=== PATIENT | female | born 1935 | race Caucasian/White ===

== ENCOUNTER → 2016-12-14 | Outpatient (CLI) | payer OTHER ==
[~2016-12-14] MED LIST: AMOX500C3 PO; ATEN50TA8 PO; GUAISYP4 PO; LATA0.009 OPB; LISI5TAB3 PO; PRED5PAK3 PO; RIVA1.5T PO; SIMV10TA2 PO
--- NOTE | 2016-12-14 14:51 | MAMMOGRAPHY REPORT ---
BILATERAL DIGITAL SCREENING MAMMOGRAM WITH CAD: 12/14/2016 CLINICAL HISTORY: Routine screening. Patient has no complaints. TECHNIQUE: Current study was also evaluated with a Computer Aided Detection (CAD) system. Bilatera l CC and MLO views were obtained. COMPARISON: Comparison is made to exam dated: 03/31/2014 mammogram - [facility]. BREAST COMPOSITION: The tissue of both breasts is almost entirely fatty. FINDINGS: No suspicious masses, calcifications, or areas of architectural distortion are noted in e ither breast. There has been no significant interval change compared to prior exams. Scattered bilat eral benign-appearing calcifications are not significantly changed. IMPRESSION: ACR BI-RADS CATEGORY 2: BENIGN There is no mammographic evidence of malignancy. A 1 year screening mammogram is recommended. The p atient will receive written notification of the results. Approximately 10% of breast cancers are not detected with mammography. A negative mammographic repor t should not delay biopsy if a clinically suggestive mass is present. Sridevi Damon M.D. ah/:12/14/2016 12:43:42 Nitrator Operator: Valentina MCKEON(Stoney)(Vern), [facility] letter sent: Normal 1/2 BI-RADS Code: ACR BI-RADS Category 2: Benign
== END | disposition home or self-care (01) ==
LOC: C.MAMM 10:14
PROVIDERS: ATTEND Internal Medicine
DX: Z12.31 Encounter for screening mammogram for malignant neoplasm of breast (principal)

== ENCOUNTER → 2017-01-03 | Outpatient (CLI) | payer OTHER ==
--- NOTE | 2017-01-03 10:15 | DIAGNOSTIC IMAGING REPORT ---
TWO VIEW CHEST CLINICAL HISTORY: Bronchitis. FINDINGS: PA and lateral chest radiographs are compared to study dated 02/28/2015. The PA view is degraded by patient rotation. The heart is enlarged and there is atherosclerotic calcification of the thoracic aorta. The pulmonary vasculature is noncongested. Chronic interstitial thickening is unchanged. Linear atelectasis versus scarring left lower lung is similar to previous. No airspace consolidation or pleural effusion is identified. There is no pneumothorax. The skeletal structures are osteopenic. Degenerative change and moderate scoliosis are noted in the spine. Cholecystectomy clips are noted in the right upper quadrant. IMPRESSION: Cardiomegaly and chronic parenchymal changes as above. There is no acute cardiopulmonary abnormality. Electronically signed by: Gerardo Byrd M.D. 01/03/2017 10:13 AM Dictated Date/Time: 01/03/2017 10:12 AM
== END | disposition home or self-care (01) ==
LOC: C.RAD 09:33
PROVIDERS: ATTEND Internal Medicine
DX: J20.9 Acute bronchitis, unspecified (principal); I51.7 Cardiomegaly

== ENCOUNTER → 2017-05-02 | Outpatient (CLI) | payer OTHER ==
[2017-05-02 13:58] LABS: BASO % 0.4 %; BASO ABS # 0.04 K/uL (0-0.2); COMPLETE YES; EOS % 3.1 %; HEMATOCRIT 47.6 % (37-47); IG% 0.1 %; LYMPH % 44.8 %; LYMPH ABS # 4.06 K/uL (1.2-3.4); MEAN CELL VOLUME 91.9 fL (80-100); MEAN CORPUSCULAR HGB CONC 31.5 g/dl (32-36); MEAN PLATELET VOLUME 11.5 fL (7.4-10.4); MONO % 7.4 %; NEUT % 44.2 %; PLATELET COUNT 220 K/uL (130-400); RED BLOOD COUNT 5.18 M/uL (4.2-5.4); WHITE BLOOD COUNT 9.07 K/uL (4.8-10.8)
[2017-05-02 14:33] LABS: ESTIMATED AVERAGE GLUCOSE 126 mg/dl; HA1C FLAG Normal (Normal)
[2017-05-02 15:40] LABS: ALB/GLOB RATIO 0.9 (0.9-2); ALKALINE PHOSPHATASE 72 U/L (45-117); ALT/SGPT 19 U/L (12-78); AST/SGOT 13 U/L (15-37); BLOOD UREA NITROGEN 9 mg/dl (7-18); BUN/CREATININE RATIO 12.6 (10-20); CALCIUM 8.5 mg/dl (8.5-10.1); CARBON DIOXIDE 32 mmol/L (21-32); CHLORIDE 103 mmol/L (98-107); CREATININE 0.69 mg/dl (0.60-1.20); GLUCOSE 96 mg/dl (70-99); HDL CHOLESTEROL 57 mg/dl; POTASSIUM 3.9 mmol/L (3.5-5.1); SODIUM 142 mmol/L (136-145)
[2017-05-02 15:41] LABS: CHOLESTEROL 156 mg/dl (0-200); CHOLESTEROL/HDL RATIO 2.7; TRIGLYCERIDES 92 mg/dl (0-150); VERY LOW DENSITY LIPOPROT CALC 18 mg/dl
== END | disposition home or self-care (01) ==
LOC: C.LABSPEC 12:46
PROVIDERS: ATTEND Internal Medicine
DX: R73.9 Hyperglycemia, unspecified (principal); E78.5 Hyperlipidemia, unspecified; I10 Essential (primary) hypertension; I48.91 Unspecified atrial fibrillation

== ENCOUNTER → 2017-11-01 | Outpatient (CLI) | payer OTHER ==
[2017-11-01 13:28] LABS: BASO % 0.5 %; BASO ABS # 0.04 K/uL (0-0.2); COMPLETE YES; EOS % 2.6 %; HEMATOCRIT 44.7 % (37-47); IG% 0.4 %; LYMPH % 41.3 %; LYMPH ABS # 3.48 K/uL (1.2-3.4); MEAN CELL VOLUME 89.6 fL (80-100); MEAN CORPUSCULAR HEMOGLOBIN 30.9 pg (25-34); MEAN CORPUSCULAR HGB CONC 34.5 g/dl (32-36); MEAN PLATELET VOLUME 11.7 fL (7.4-10.4); MONO % 7.8 %; NEUT % 47.4 %; PLATELET COUNT 220 K/uL (130-400); RED BLOOD COUNT 4.99 M/uL (4.2-5.4); WHITE BLOOD COUNT 8.42 K/uL (4.8-10.8)
[2017-11-01 13:55] LABS: ALT/SGPT 22 U/L (12-78); BLOOD UREA NITROGEN 6 mg/dl (7-18); BUN/CREATININE RATIO 10.8 (10-20); CALCIUM 8.8 mg/dl (8.5-10.1); CARBON DIOXIDE 27 mmol/L (21-32); CHLORIDE 99 mmol/L (98-107); GLUCOSE 103 mg/dl (70-99); MAGNESIUM 2.2 mg/dl (1.8-2.4); POTASSIUM 3.7 mmol/L (3.5-5.1); SODIUM 134 mmol/L (136-145)
[2017-11-01 14:00] LABS: ALB/GLOB RATIO 0.9 (0.9-2); ALKALINE PHOSPHATASE 73 U/L (45-117); AST/SGOT 17 U/L (15-37); CHOLESTEROL 184 mg/dl (0-200); CHOLESTEROL/HDL RATIO 3.3; HDL CHOLESTEROL 55 mg/dl; TRIGLYCERIDES 110 mg/dl (0-150); VERY LOW DENSITY LIPOPROT CALC 22 mg/dl
== END | disposition home or self-care (01) ==
LOC: C.LABSPEC 12:36
PROVIDERS: ATTEND Internal Medicine
DX: I48.91 Unspecified atrial fibrillation (principal); I10 Essential (primary) hypertension; E78.5 Hyperlipidemia, unspecified

== ENCOUNTER → 2017-11-01 | Outpatient (CLI) | payer OTHER | END | disposition home or self-care (01) | LOC: C.PAPS 12:51 | PROVIDERS: ATTEND Internal Medicine | DX: Z12.4 Encounter for screening for malignant neoplasm of cervix (principal); R87.612 Low grade squamous intraepithelial lesion on cytologic smear of cervix (LGSIL); Z78.0 Asymptomatic menopausal state ==

== ENCOUNTER → 2017-11-06 | Outpatient (CLI) | payer OTHER ==
[~2017-11-06] MED LIST changes: +APIX1TAB3 PO; +AZIT250T PO; +LATA0.5S OPB; +LISI-461 PO; +TRIATAB3 PO; +XLTOPS OPB
[2017-11-13 15:35] LABS: FECAL OCCULT BLOOD #1 NEGATIVE (NEGATIVE); FECAL OCCULT BLOOD #2 NEGATIVE (NEGATIVE); FECAL OCCULT BLOOD #3 NEGATIVE (NEGATIVE)
== END | disposition home or self-care (01) ==
LOC: C.LABSPEC 14:50
PROVIDERS: ATTEND Internal Medicine
DX: Z12.11 Encounter for screening for malignant neoplasm of colon (principal)

== ENCOUNTER → 2017-12-11 | Outpatient (CLI) | payer OTHER ==
[~2017-12-11] MED LIST changes: -APIX1TAB3 PO; -AZIT250T PO; -LATA0.5S OPB; -LISI-461 PO; -TRIATAB3 PO; -XLTOPS OPB
== END | disposition home or self-care (01) ==
LOC: C.PAPS 10:49
PROVIDERS: ATTEND Internal Medicine
DX: Z01.411 Encounter for gynecological examination (general) (routine) with abnormal findings (principal); R87.612 Low grade squamous intraepithelial lesion on cytologic smear of cervix (LGSIL)

== ENCOUNTER → 2017-12-17 | Outpatient (CLI) | payer OTHER ==
--- NOTE | 2017-12-17 15:52 | MAMMOGRAPHY REPORT ---
BILATERAL DIGITAL SCREENING MAMMOGRAM TOMOSYNTHESIS WITH CAD: 12/17/2017 CLINICAL HISTORY: Routine screening. Patient has no complaints. TECHNIQUE: Breast tomosynthesis in addition to standard 2D mammography was performed. Current study was also evaluated with a Computer Aided Detection (CAD) system. COMPARISON: Comparison is made to exams dated: 12/14/2016 mammogram and 03/31/2014 mammogram - [facility]. BREAST COMPOSITION: The tissue of both breasts is almost entirely fatty. FINDINGS: No suspicious masses, calcifications, or areas of architectural distortion are noted in ei ther breast. There has been no significant interval change compared to prior exams. Scattered bilater al benign-appearing calcifications are not significantly changed. IMPRESSION: ACR BI-RADS CATEGORY 2: BENIGN There is no mammographic evidence of malignancy. A 1 year screening mammogram is recommended. The pa tient will receive written notification of the results. Approximately 10% of breast cancers are not detected with mammography. A negative mammographic report should not delay biopsy if a clinically suggestive mass is present. Sridevi Damon M.D. /:12/17/2017 13:30:17 Therapeutic Activities Services Worker: Silvana Amaya, [facility] letter sent: Normal 1/2 BI-RADS Code: ACR BI-RADS Category 2: Benign
== END | disposition home or self-care (01) ==
LOC: C.MAMM 12:36
PROVIDERS: ATTEND Internal Medicine
DX: Z12.31 Encounter for screening mammogram for malignant neoplasm of breast (principal)

== ENCOUNTER → 2018-01-01 | Outpatient (CLI) | payer OTHER | END | disposition home or self-care (01) | LOC: C.LABSPEC 16:03 | PROVIDERS: ATTEND Obstetrics & Gynecology | DX: R87.612 Low grade squamous intraepithelial lesion on cytologic smear of cervix (LGSIL) (principal) ==

== ENCOUNTER → 2018-01-01 | Outpatient (CLI) | payer OTHER | END | disposition home or self-care (01) | LOC: C.PATHSPEC 13:15 | PROVIDERS: ATTEND Obstetrics & Gynecology | DX: R87.612 Low grade squamous intraepithelial lesion on cytologic smear of cervix (LGSIL) (principal) ==

== ENCOUNTER 2018-03-08 07:41 | Emergency (ER) | payer OTHER ==
[~2018-03-08] VITALS: Ht 154.9 cm; Wt 87.1 kg
[2018-03-08 07:49] VITALS: TEMP 36.8
[2018-03-08] MEDS ORDERED: ACETAMINOPHEN 500 MG TAB PO STA (08:02)
[2018-03-08] MEDS ORDERED: COUGH DROP (SUGAR FREE) LOZ 24 LOZ/1 BOX LOZ STA (08:02)
[2018-03-08] MEDS ORDERED: ALBUT/IPRATROP 3MG/0.5MG NEB 3 ML VIAL INH STA (08:02)
[2018-03-08] MEDS ORDERED: APIX1TAB3 PO (08:05)
[2018-03-08] MEDS ORDERED: XLTOPS OPB (08:05)
[2018-03-08] MEDS ORDERED: TRIATAB3 PO (08:05)
[2018-03-08] MEDS ORDERED: LISI-461 PO (08:05)
[2018-03-08 08:08] VITALS: O2SAT 97
--- NOTE | 2018-03-08 08:08 | EMERGENCY ROOM VISIT NOTE ---
History Report prepared by Willa: Luis Armando Spangler Under the Supervision of: Dr. Luis Enrique Puga M.D. First contact with patient: 07:51 Chief Complaint: RESPIRATORY PROBLEMS Stated Complaint: UPPER RESPIRATORY INFECTION/TROUBLE BREATHING Nursing Triage Summary: patient states she has had a cough with chest congestion for a couple weeks. patient c/o increased congestion and intermittent SOB with excertion. denies chest pain. History of Present Illness The patient is an 83 year old white female with a past medical history of A-fib , anxiety, appendectomy, asthma, cholecystectomy, diverticulosis colon, glaucoma , hypertension, hypercholesterolemia who presents to the Emergency Room with complaints of worsening shortness of breath that she has been experiencing for the "past couple of days." The patient states that she has been congested and coughing as well. Her cough is producing "a lot of yellow mucous." The patient called her PCP on Sunday and was placed on Augmentin and has been taking this medication for the past 2 days. The patient's daughter notes that she gets bronchitis and pneumonia easily. She is on ELIQUIS for atrial fibrillation. Source of History: patient Onset: past couple of days Position: chest Quality: other (SOB) Timing: worsening Associated Symptoms: + cough Review of Systems See HPI for pertinent positives and negatives. A total of ten systems were reviewed and were otherwise negative. Past Medical & Surgical Medical Problems: (1) A-fib (2) Anxiety State Nos (3) Appendectomy (4) Asthma (5) Cholecystectomy (6) Diverticulosis Colon (W/O Ment Of Hemorrhage) (7) Glaucoma Nos (8) Hypertension Nos (9) Pure Hypercholesterolem Family History Omitted secondary to age. Social History Smoking Status: Never Smoker Marital Status: Occupation Status: retired Current/Historical Medications Scheduled Amoxicillin (Amoxil), 500 MG PO TID Apixaban (Eliquis), 5 MG PO BID Azithromycin (Zithromax), 250 MG PO DAILY Latanoprost (Latanoprost), 1 DROP OPB HS Lisinopril (Lisinopril), 10 MG PO BID Simvastatin (Zocor), 10 MG PO QPM Triamterene/Hctz (Triamterene/Hctz 37.5-25MG), 1 TAB PO DAILY Allergies Coded Allergies: Phenazopyridine (Verified Adverse Reaction, Unknown, HEADACHE, VISUAL PROBLEMS, 03/08/18) Physical Exam Vital Signs Date Time Temp Pulse Resp B/P (MAP) Pulse Ox O2 Delivery O2 Flow Rate FiO2 03/08/18 10:11 76 18 98 03/08/18 10:04 161/88 03/08/18 09:59 83 18 125/77 94 Room Air 03/08/18 09:41 84 18 96 03/08/18 09:31 125/77 03/08/18 09:11 83 15 94 03/08/18 09:01 137/64 03/08/18 08:31 76 20 140/83 99 Room Air 03/08/18 08:31 140/83 03/08/18 08:11 76 19 93 03/08/18 08:08 97 Room Air 03/08/18 08:04 69 03/08/18 07:49 36.8 97 18 182/95 99 Room Air Physical Exam GENERAL: Awake, alert, well-appearing, NAD HENT: Normocephalic, atraumatic. EYES: Normal conjunctiva. Sclera non-icteric. NECK: Supple. No nuchal rigidity. FROM. RESPIRATORY: Trace expiratory wheezing, no rhonchi or crackles CARDIAC: RRR, no MRG ABDOMEN: Soft, NTND, BS+ MSK: No chest wall TTP, no LE edema NEURO: GCS 15, CN 2-12 intact, moves all 4s on command SKIN: No rash or jaundice noted. Medical Decision & Procedures ER Provider Diagnostic Interpretation: Radiology results as stated below per my review and radiologist interpretation: CHEST ONE VIEW PORTABLE CLINICAL HISTORY: 83 years-old Female presenting with EVALUATE RESPIRATORY DISTRESS.DYSPNEA. TECHNIQUE: Portable upright AP view of the chest was obtained. COMPARISON: 01/03/2017. FINDINGS: Atherosclerosis of aortic arch. Cardiac silhouette enlarged. Mild prominence of pulmonary vasculature and upper lobes. Persistent bandlike opacity in the left midlung. No focal opacity. No large effusion or pneumothorax. Scoliotic curvature of the spine. Upper abdomen normal. IMPRESSION: 1. Cardiomegaly with findings suggestive of volume overload. No filemon pulmonary edema. 2. Chronic left midlung atelectasis or scarring. Electronically signed by: Edvin Becker M.D. 03/08/2018 8:19 AM Dictated Date/Time: 03/08/2018 8:18 AM Laboratory Results 03/08/18 08:07 Red Blood Count 4.84, Mean Corpuscular Volume 87.4, Mean Corpuscular Hemoglobin 31.2, Mean Corpuscular Hemoglobin Concent 35.7, Mean Platelet Volume 10.7, Neutrophils (%) (Auto) 68.7, Lymphocytes (%) (Auto) 22.3, Monocytes (%) (Auto) 6.5, Eosinophils (%) (Auto) 2.1, Basophils (%) (Auto) 0.2, Neutrophils # (Auto) 6.08, Lymphocytes # (Auto) 1.98, Monocytes # (Auto) 0.58, Eosinophils # (Auto) 0.19, Basophils # (Auto) 0.02 03/08/18 08:07 Test 03/08/18 08:07 03/08/18 10:15 White Blood Count 8.87 K/uL (4.8-10.8) Red Blood Count 4.84 M/uL (4.2-5.4) Hemoglobin 15.1 g/dL (12.0-16.0) Hematocrit 42.3 % (37-47) Mean Corpuscular Volume 87.4 fL (80-100) Mean Corpuscular Hemoglobin 31.2 pg (25-34) Mean Corpuscular Hemoglobin Concent 35.7 g/dl (32-36) Platelet Count 210 K/uL (130-400) Mean Platelet Volume 10.7 fL (7.4-10.4) Neutrophils (%) (Auto) 68.7 % Lymphocytes (%) (Auto) 22.3 % Monocytes (%) (Auto) 6.5 % Eosinophils (%) (Auto) 2.1 % Basophils (%) (Auto) 0.2 % Neutrophils # (Auto) 6.08 K/uL (1.4-6.5) Lymphocytes # (Auto) 1.98 K/uL (1.2-3.4) Monocytes # (Auto) 0.58 K/uL (0.11-0.59) Eosinophils # (Auto) 0.19 K/uL (0-0.5) Basophils # (Auto) 0.02 K/uL (0-0.2) RDW Standard Deviation 40.8 fL (36.4-46.3) RDW Coefficient of Variation 12.7 % (11.5-14.5) Immature Granulocyte % (Auto) 0.2 % Immature Granulocyte # (Auto) 0.02 K/uL (0.00-0.02) Anion Gap 8.0 mmol/L (3-11) Est Creatinine Clear Calc Drug Dose 65.6 ml/min Estimated GFR () 95.0 Estimated GFR (Non- 81.9 BUN/Creatinine Ratio 8.5 (10-20) Calcium Level 8.3 mg/dl (8.5-10.1) Troponin I < 0.015 ng/ml (0-0.045) Pro-B-Type Natriuretic Peptide 479 pg/ml (0-1800) Laboratory results reviewed by me Medications Administered Medications (Trade) Dose Ordered Sig/Bucky Route Start Time Stop Time Status Last Admin Dose Admin Acetaminophen (Tylenol Tab) 1,000 mg NOW STAT PO 03/08/18 08:02 03/08/18 08:05 DC 03/08/18 08:29 1,000 MG Albuterol/ Ipratropium (Duoneb) 3 ml NOW STAT INH 03/08/18 08:02 03/08/18 08:05 DC 03/08/18 08:28 3 ML Menthol (Nice Mendel) 1 mendel NOW STAT MENDEL 03/08/18 08:02 03/08/18 08:05 DC 03/08/18 08:29 24 MENDEL Azithromycin (Zithromax Tab) 500 mg NOW ONCE PO 03/08/18 09:30 03/08/18 09:31 DC 03/08/18 09:56 500 MG Sodium Chloride 500 ml @ 999 mls/hr Q31M STAT IV 03/08/18 09:35 03/08/18 10:05 DC 03/08/18 09:57 999 MLS/HR ECG Per My Interpretation Indication: SOB/dyspnea Rate (beats per minute): 68 Rhythm: atrial fibrillation Findings: Q waves (Anterior), other (Normal interval, normal axis) Comparison ECG Date: 02/25/2018 Change: no significant change ED Course 0757: The patient was evaluated in room B6. A complete history and physical exam was performed. 0931: I checked on the patient at this time. She is feeling a little weak. 1109: I reevaluated the patient. Discussed results and discharge instructions: She verbalized understanding and agreement. The patient is ready for discharge. Medical Decision The patient is an 83 year old white female with a past medical history of A-fib , anxiety state, appendectomy, asthma, cholecystectomy, diverticulosis colon, glaucoma Nos, hypertension, hypercholesterolemia who presents to the Emergency Room with complaints of worsening shortness of breath that she has been experiencing for the "past couple of days." Nursing notes reviewed. Ancillary studies and prior records reviewed. Differential diagnosis: Etiologies such as infections, reactive airway disease, pneumonia, pneumothorax , COPD, CHF, cardiac ischemia, pulmonary embolism, musculoskeletal, gastrointestinal, as well as others were entertained. Patient was seen and evaluated the bedside. Patient reportedly has an issue with some chronic bronchitis. Patient had had some noticed chest congestion and does complain of a purulent productive cough with yellow sputum. Patient does have subjective fevers but no documented temperature at home. On exam the patient does have some trace expiratory wheezes. Patient was recently placed on amoxicillin beginning Sunday. Patient's vital signs stable and patient is afebrile. Patient did have blood work completed, EKG, troponin, BNP, chest x-ray. Patient was also given a DuoNeb, Tylenol, and Cepacol. Upon reassessment the patient was feeling mildly improved. Patient's end expiratory wheezing is not clear. Patient stated that she did feel weak. Patient chest x-rays without acute focal consolidation. EKG is unremarkable. Patient did have some hyponatremia. Patient does not appear to be volume overloaded. Less likely CHF , renal failure, or liver dysfunction. Patient has had a prior history of thyroid disease. Patient is not any antipsychotics. This may be related to possible legionella was tract. Patient was given azithromycin and IVF. Medication Reconcilliation Current Medication List: was personally reviewed by me Blood Pressure Screening Patient's blood pressure: Elevated blood pressure Blood pressure disposition: Elevated BP felt to be situational Impression Primary Impression: Acute bronchitis Additional Impressions: Hyponatremia Cough Scribe Attestation The scribe's documentation has been prepared under my direction and personally reviewed by me in its entirety. I confirm that the note above accurately reflects all work, treatment, procedures, and medical decision making performed by me. Departure Information Dispostion Home / Self-Care Prescriptions Azithromycin (Zithromax) 250 Mg Tab 250 MG PO DAILY for 4 Days, #4 TAB Prov: Luis Enrique Puga M.D. 03/08/18 Referrals Yovanny Augustin M.D. (PCP) Patient Instructions Bronchitis Acute, My [facility] Additional Instructions Please return to the emergency department if you have worsening or recurrent symptoms not amenable to at-home treatment. Please call for a follow-up appointment with her primary care physician. Please take your medications as prescribed. If you have other concerns and/or complaints please feel free to also call your primary care physician's office or return the ED for further evaluation, management, and treatment. You may take 400 mg Ibuprofen every 6 hours as needed for pain/fever with food unless told by your physician not to take NSAIDs. You may take tylenol 650 mg every 6 hours as needed for pain/fever unless told by your physician to not take it or have liver problems. You may take motrin and tylenol separately or at the same time. Take your medications as prescribed. While taking the antibiotics please consider eating yogurt or taking a probiotic. Next time you to see the physician please have your sodium level checked as it was low today. To help with your cough you may try Tessalon Perles to help with any cough suppressant. If you would like to use an expectorant consider Mucinex. Use as directed on the box. You have been examined and treated today on an emergency basis only. This is not a substitute for, or an effort to provide, complete comprehensive medical care. It is impossible to recognize and treat all injuries or illnesses in a single emergency department visit. It is therefore important that you follow up closely with [facility], your PCP, and/or your specialist(s). Call as soon as possible for an appointment. Thank you for your time and consideration. I look forward to speaking with you again soon. Please don't hesitate to call us if you have any questions. Problem Qualifiers
--- NOTE | 2018-03-08 08:20 | DIAGNOSTIC IMAGING REPORT ---
CHEST ONE VIEW PORTABLE CLINICAL HISTORY: 83 years-old Female presenting with EVALUATE RESPIRATORY DISTRESS.DYSPNEA. TECHNIQUE: Portable upright AP view of the chest was obtained. COMPARISON: 01/03/2017. FINDINGS: Atherosclerosis of aortic arch. Cardiac silhouette enlarged. Mild prominence of pulmonary vasculature and upper lobes. Persistent bandlike opacity in the left midlung. No focal opacity. No large effusion or pneumothorax. Scoliotic curvature of the spine. Upper abdomen normal. IMPRESSION: 1. Cardiomegaly with findings suggestive of volume overload. No filemon pulmonary edema. 2. Chronic left midlung atelectasis or scarring. Electronically signed by: Edvin Becker M.D. 03/08/2018 8:19 AM Dictated Date/Time: 03/08/2018 8:18 AM
[2018-03-08 08:22] VITALS: Ht 154.9 cm; Wt 87.1 kg
[2018-03-08 08:22] LABS: BASO % 0.2 %; BASO ABS # 0.02 K/uL (0-0.2); EOS % 2.1 %; EOS ABS # 0.19 K/uL (0-0.5); HEMATOCRIT 42.3 % (37-47); HEMOGLOBIN 15.1 g/dL (12.0-16.0); IG# 0.02 K/uL (0.00-0.02); LYMPH % 22.3 %; LYMPH ABS # 1.98 K/uL (1.2-3.4); MEAN CELL VOLUME 87.4 fL (80-100); MEAN CORPUSCULAR HEMOGLOBIN 31.2 pg (25-34); MEAN CORPUSCULAR HGB CONC 35.7 g/dl (32-36); MEAN PLATELET VOLUME 10.7 fL (7.4-10.4); MONO % 6.5 %; MONO ABS # 0.58 K/uL (0.11-0.59); NEUT % 68.7 %; NEUT ABS # 6.08 K/uL (1.4-6.5); PLATELET COUNT 210 K/uL (130-400); RED CELL DISTRIBUTION WIDTH CV 12.7 % (11.5-14.5); RED CELL DISTRIBUTION WIDTH SD 40.8 fL (36.4-46.3); WHITE BLOOD COUNT 8.87 K/uL (4.8-10.8)
[2018-03-08 08:38] LABS: BLOOD UREA NITROGEN 5 mg/dl (7-18); CALCIUM 8.3 mg/dl (8.5-10.1); CARBON DIOXIDE 28 mmol/L (21-32); CREATININE 0.64 mg/dl (0.60-1.20); GLUCOSE 114 mg/dl (70-99); POTASSIUM 3.9 mmol/L (3.5-5.1); SODIUM 122 mmol/L (136-145)
[2018-03-08] MEDS ORDERED: AZITHROMYCIN 250 MG TAB PO ONE (09:30)
[2018-03-08] MEDS ORDERED: SODIUM CHLORIDE 0.9% 500ML 500 ML IV STA (09:35)
[2018-03-08] MEDS ORDERED: AZIT250T PO (11:14)
[2018-03-08 11:37] VITALS: BP 123/71; PULSE 66; O2SAT 92
== END 2018-03-08 11:39 | disposition home or self-care (01) ==
LOC: C.EDB 07:44
DX: J20.9 Acute bronchitis, unspecified (principal); E87.1 Hypo-osmolality and hyponatremia; I48.91 Unspecified atrial fibrillation; F41.9 Anxiety disorder, unspecified; J45.909 Unspecified asthma, uncomplicated; Z90.49 Acquired absence of other specified parts of digestive tract; H40.9 Unspecified glaucoma; I10 Essential (primary) hypertension; E78.00 Pure hypercholesterolemia, unspecified; Z79.01 Long term (current) use of anticoagulants; Z79.899 Other long term (current) drug therapy; Z88.8 Allergy status to other drugs, medicaments and biological substances

== ENCOUNTER → 2018-06-27 | Outpatient (CLI) | payer OTHER ==
[~2018-06-27] MED LIST changes: -AMOX500C3 PO; +APIX1TAB3 PO; -ATEN50TA8 PO; -GUAISYP4 PO; -LATA0.009 OPB; +LISI-461 PO; -LISI5TAB3 PO; -PRED5PAK3 PO; -RIVA1.5T PO; +TRIATAB3 PO; +XLTOPS OPB
== END | disposition home or self-care (01) ==
LOC: C.LABBFT 08:52
DX: Z01.818 Encounter for other preprocedural examination (principal)

== ENCOUNTER → 2018-06-28 | Day surgery (SDC) | payer OTHER ==
[2018-06-24 10:42] VITALS: Ht 156.2 cm; Wt 83.6 kg
[~2018-06-28] VITALS: Ht 156.2 cm; Wt 83.6 kg
[~2018-06-28] MED LIST changes: +ATROPINE SULFATE 0.1 MG/ML 5ML SYR IV PRN; +CEFAZOLIN 2000MG IV PUSH 15 ML IV SCH; +DEXAMETHASONE SOD INJ 4 MG/ML VIAL ONE; +EpHEDrine SULFATE INJ 50 MG/ML AMP IV PRN; +EpINEphrine INJ 1MG/ML AMP 1 MG/ML AMP ONE; +FENTANYL CITRATE INJ 50 MCG/1 ML 2 ML VIAL IV PRN; +FENTANYL CITRATE INJ 50 MCG/1 ML 2 ML VIAL ONE; +GLYCOPYRROLATE INJ 0.2 MG/ML VIAL ONE; +HYDROCODONE/ACETAMIN 5/325MG TAB PO PRN; +HYDROmorphone INJ 1 MG/ML SYR IV PRN; +LACTATED RINGER'S 1000ML 1,000 ML IV SCH; +LIDOCAINE 4% MPF SOAK 5 ML = 1 DOSE ONE; +LIDOCAINE HCL 2% 2 ML VIAL (20MG/ML) ONE; +LIDOCAINE/EPINEPHRINE 1% 20 ML VIAL ONE; +MIDAZOLAM HCL 1 MG/ML 2ML VIAL ONE; +NEOSTIGMINE METHYLSULFATE 5 MG/5 ML SYR ONE; +ONDANSETRON INJ 2 MG/ML 2 ML VIAL IV PRN; +ONDANSETRON INJ 2 MG/ML 2 ML VIAL ONE; +OXYMETAZOLINE HCL 0.05% NA SPR 15 ML BTL PRN; +OXYMETAZOLINE HCL 0.05% NA SPR 15 ML BTL SCH; +PHENYLEPHRINE 100MCG/ML 5ML SYR IV PRN; +PROPOFOL IV EMULSION 10 MG/ML 20 ML VIAL ONE
--- NOTE | 2018-06-28 09:44 | History & Physical Bridge - SC ---
H&P Re-Evaluation Bridge Note: I have examined the patient, reviewed the History & Physical and in the interval since the performance of the History & Physical I have noted the following changes of clinical significance: No changes noted
--- NOTE | 2018-06-28 12:03 | [facility] Operative Report ---
Operative Report Operative Date Jun 28, 2018. Pre-Operative Diagnosis Left Nasal Polyps Post-Operative Diagnosis Same Procedure(s) Performed Left Nasal Endoscopic Polypectomy Surgeon Dr. Richard Offset Lithographic Press Setter Surgeon(s) None Estimated Blood Loss 5 ml Findings 2CM HARD POLYPOID MASS EMANATING FROM THE POSTERIOR ASPECT OF THE LEFT MIDDLE TURBINATE Specimens A. Left Posterior Middle Turbinate Mass, permanent Anesthesia Type General I attest to the content of the Intraoperative Record and any orders documented therein. Any exceptions are noted below.
--- NOTE | 2018-06-28 12:05 | Discharge Instructions ---
Discharge Instructions Date of Service Jun 28, 2018. Admission Reason for Admission: Left Nasal Polyps Discharge Discharge Diagnosis / Problem: SAME Discharge Goals Goal(s): Therapeutic intervention Activity Recommendations Activity Limitations: as noted below LIGHT ACTIVITY FOR 2WEEKS AND NO NOSE BLOWING FOR 2 WEEKS; NO DRIVING WHILE ON NORCO . Current Hospital Diet Patient's current hospital diet: Discharge Diet Recommended Diet: Regular Diet Procedures Procedures Performed: Left Nasal Endoscopic Polypectomy Pending Studies Studies pending at discharge: no Laboratory Results Lipid Panel Test 05/21/18 10:15 Range/Units Triglycerides Level 98 0-150 mg/dl Cholesterol Level 163 0-200 mg/dl HDL Cholesterol 48 mg/dl LDL Cholesterol Direct 103 mg/dl Cholesterol/HDL Ratio 3.4 LDL Cholesterol, Calculated mg/dl Medical Emergencies . Who to Call and When: Medical Emergencies: If at any time you feel your situation is an emergency, please call 911 immediately. . Non-Emergent Contact Non-Emergency issues call your: Surgeon . . "Provider Documentation" section prepared by Ren Richard. .
--- NOTE | 2018-06-28 12:36 | OPERATIVE REPORT ---
DATE OF OPERATION: 06/28/2018 PREOPERATIVE DIAGNOSIS: Left posterior nasal cavity polypoid mass. POSTOPERATIVE DIAGNOSIS: Left posterior nasal cavity polypoid mass. PROCEDURE: Endoscopic left polypectomy. SURGEON: Dr. Richard. ANESTHESIA: General endotracheal. ESTIMATED BLOOD LOSS: 5 mL FINDINGS: 2.5 cm hard polypoid mass emanating from the posterior aspect of the left middle turbinate. SPECIMENS: Left middle turbinate mass for permanent pathological assessment. COMPLICATIONS: None. INDICATIONS FOR THE PROCEDURE: The patient is a very pleasant 83-year-old female who recently had a CT scan of the head to work up a left-sided headache and was found to have a polypoid mass blocking the majority of the choana on the left hand side. When comparing this to a prior CT scan of the head that the patient had years ago, this increased from 1 cm to 2 cm in size. It is likely unrelated to the patient's headache but because of the growth of the mass and the fact that it blocks the nasal airway completely on the left hand side, I had recommended endoscopic left polypectomy for both diagnostic and therapeutic purposes. The patient presents for the above-mentioned procedure on an outpatient elective basis. DETAILS OF PROCEDURE: After informed consent had been obtained from the patient, the patient was wheeled to the operating room and placed on the operating table in supine position. Monitors were placed. After induction of general endotracheal anesthesia, the patient was prepped in the usual fashion for endoscopic sinus surgery. A lidocaine and epinephrine pledget was placed in the left nasal cavity and pressure applied. After allowing adequate time for anesthesia and decongestion, the pledget was removed and a 0-degree rigid endoscope was used to inspect the nasal cavity. There was a large polypoid mass emanating from the posterior aspect of the left middle turbinate and completely filling the choana with this polypoid tissue. This was injected with 1% lidocaine with 1:100,000 epinephrine. After allowing adequate time for vasoconstriction, a straight Cody-Cut forceps was used to remove the polypoid mass in its entirety cutting the stalk of the mass that was emanating from the posterior aspect of the left middle turbinate. The specimen was sent off for permanent pathological assessment. It measured 2.5 cm in length. Suction Bovie electrocautery was used to cauterize the base of the stalk where the mass came from. Estimated blood loss was 5 mL. An orogastric tube was placed and the stomach was suctioned free of air and stomach contents. This marked the end of the case. The patient tolerated the procedure well with no apparent complications. Patient was extubated and transferred to recovery room in stable condition. I attest to the content of the Intraoperative Record and any orders documented therein. Any exception s are noted below.
--- NOTE | 2018-06-28 12:42 | Anesthesia Progress Nt - [facility] ---
Anesthesia Post Op Note Date & Time Jun 28, 2018 at 12:42 Vital Signs Pain Intensity: 0 Vital Signs Past 12 Hours Date Time Temp Pulse Resp B/P (MAP) Pulse Ox O2 Delivery O2 Flow Rate FiO2 06/28/18 12:29 Room Air 06/28/18 12:04 36.5 91 12 116/47 93 Humidified Oxygen 5 Diffusion Mask 06/28/18 08:57 36.5 76 18 137/92 (107) 98 Room Air Notes Mental Status: alert / awake / arousable, participated in evaluation Pt Amnestic to Procedure: Yes Nausea / Vomiting: adequately controlled Pain: adequately controlled Airway Patency, RR, SpO2: stable & adequate BP & HR: stable & adequate Hydration State: stable & adequate Anesthetic Complications: no major complications apparent
[2018-06-28 12:59] VITALS: TEMP 36.3
[2018-06-28 13:37] VITALS: BP 154/85; PULSE 72; O2SAT 96
== END | disposition home or self-care (01) ==
LOC: X.SURG 08:38
DX: J33.9 Nasal polyp, unspecified (principal); J45.909 Unspecified asthma, uncomplicated; I48.91 Unspecified atrial fibrillation; Z86.73 Personal history of transient ischemic attack (TIA), and cerebral infarction without residual deficits; Z87.891 Personal history of nicotine dependence; Z79.01 Long term (current) use of anticoagulants; H40.10X0 Unspecified open-angle glaucoma, stage unspecified; E78.5 Hyperlipidemia, unspecified; I10 Essential (primary) hypertension; Z79.899 Other long term (current) drug therapy

== ENCOUNTER 2020-10-28 11:11 | Observation (INO) ==
[2020-10-28 11:47] LABS: Basophils # (auto) 0.01 K/uL (0-0.2); Basophils % (auto) 0.1 %; Eosinophils # (auto) 0.03 K/uL (0-0.5); Eosinophils % (auto) 0.2 %; Hematocrit (blood only) 42.9 % (37-47); Hemoglobin 14.7 g/dL (12.0-16.0); Immature Granulocytes # (auto) 0.05 K/uL (0.00-0.02); Immature Granulocytes % (auto) 0.3 %; Lymphocytes # (auto) 3.19 K/uL (1.2-3.4); Lymphocytes % (auto) 20.7 %; Mean Corpuscular Hemoglobin 30.8 pg (25-34); Mean Corpuscular Hgb Conc 34.3 g/dL (32-36); Mean Corpuscular Volume 89.7 fL (80-100); Mean Platelet Volume 10.3 fL (7.4-10.4); Monocytes # (auto) 1.01 K/uL (0.11-0.59); Monocytes % (auto) 6.6 %; Neutrophils # (auto) 11.12 K/uL (1.4-6.5); Neutrophils % (auto) 72.1 %; Platelet Count 293 K/uL (130-400); RDW Coefficient of Variation 14.1 % (11.5-14.5); Red Blood Count 4.78 M/uL (4.2-5.4); White Blood Count 15.41 K/uL (4.8-10.8)
[2020-10-28 12:03] LABS: Albumin Level 3.6 gm/dl (3.4-5.0); BUN Creatinine Ratio 17.2 (10-20); Calcium 9.4 mg/dl (8.5-10.1); Est GFR (African American) 65.3; Est GFR (Non-African American) 56.4; Potassium 3.6 mmol/L (3.5-5.1)
[2020-10-28 12:06] LABS: Albumin Globulin Ratio 0.9 (0.9-2); Bilirubin,Total 0.8 mg/dl (0.2-1); Total Protein 7.6 gm/dl (6.4-8.2)
[2020-10-28 12:11] LABS: INR 1.1 (0.9-1.1); Partial Thromboplastin Time 28.9 Seconds (21.0-31.0); Prothrombin Time 11.2 Seconds (9.0-12.0)
[2020-10-28] MEDS ORDERED: PROCHLORPERAZINE 1 ML IV ONE (12:38)
[2020-10-28] MEDS ORDERED: ACETAMINOPHEN 1,000 MG/100 ML VIAL IV STA (12:38)
[2020-10-28 12:39] LABS: Magnesium 2.3 mg/dl (1.8-2.4); Phosphorus 3.9 mg/dl (2.5-4.9); Troponin I < 0.015 ng/ml (0-0.045)
[2020-10-28] MEDS ORDERED: SODIUM CHLORIDE 0.9% 1000ML 1,000 ML IV ONE (12:41)
[2020-10-28 12:43] LABS: Appearance Urine Clear (Clear); Bilirubin Urine Negative (Negative); Blood Urine Negative (Negative); Color Urine Yellow; Glucose Urine UA Negative (Negative); Ketones Urine Negative (Negative); Leukocyte Esterase Urine Negative (Negative); Nitrite Urine Negative (Negative); Protein Urine Negative (Negative); Urobilinogen Urine Negative (Negative); pH Urine 8.5 (4.5-7.5)
[2020-10-28 13:00] LABS: C Reactive Protein < 0.29 mg/dl (0-0.29)
[2020-10-28] MEDS ORDERED: OPTIRAY 320 125ml IV ONE (13:20)
--- NOTE | 2020-10-28 13:21 | Emergency Department Note ---
Impression & Plan Slurred speech, A-fib, Headache, Blurred vision, right eye, On apixaban therapy ED Provider Note NAME: NEGRA YOUSSEF AGE: 85 SEX: F ARRIVES VIA: Walk-In INFORMANT: Patient, ED PROVIDER(S): Kevin Jones MD CHIEF COMPLAINT: Vision changes, slurred speech. PLAN: Disposition: Admit. MEDICAL DECISION MAKING: The patient is a pleasant 85-year-old woman with a past medical history of atrial fibrillation on Eliquis, who presents emerge department, her daughter concern for strokelike symptoms which began yesterday with associated right eye field of vision changes where she feels some blurred vision and white spots intermittently with transient episode of slurred speech prior to going to sleep last night in the setting of developing left facial pain with symptoms all evolving since 11 AM yesterday but the patient did not want to come to the hospital. At this time the patient reports mild residual headache and during my evaluation she felt as though she was suddenly able to read better. She has no slurred speech since last night. Otherwise denies fevers, chills, cough, congestion, nausea, vomit, diarrhea, urinary symptoms. She denies any known COVID-19 exposures. On arrival the patient is in no acute distress, afebrile stable vital signs. She appears clinically dry. She has no focal neurologic deficits at this time. EKG demonstrates atrial fibrillation without overt acute ischemia. Chest x-ray negative for acute cardiopulmonary process. WBC 15.4, nonspecific. H/H complaints within normal limits. ESR 29, nonspecific and CRP within normal limits. Sodium is 129 with Ausmus pending. Chemistry without acidosis. Electrolytes and LFTs unremarkable. Troponin negative/undetectable. UA without evidence of infection. CTA of the head and neck was performed and negative for ICH, ischemia or severe narrowing or occlusion of large vessels. The patient symptoms appear to have resolved, given concern for possible TIA/CVA reasonable to meet the patient for further evaluation including MRI. Patient and her daughter at the bedside are agreeable. Case was discussed with Dr. Sebastian, [facility] hospitalist, who will evaluate the patient for admission. Triage Nursing notes reviewed and agree them. Additional history obtained from daughter Prior medical records reviewed Vital Signs: reviewed and remarkable for no significant abnormalities Differential diagnosis: Infection, dehydration, metabolic abnormality, hypo/hyperglycemia, electrolyte disturbance, anemia, hypoxia, cardiac sources, intracerebral event, toxicologic, neurologic, as well as other pathologies. ER treatment provided: See below. Diagnostics interpreted by me: ECG: Atrial fibrillation, 72 bpm, no ectopy, no overt ST elevation or depression, QTC 420, QRS 88. Cardiac Monitoring: An order for continuous cardiac monitoring was placed and demonstrated atrial fibrillation, 72 bpm, no ectopy. Laboratory studies: See below Imaging studies: CT head/brain wo con CLINICAL HISTORY: Headache and visual change COMPARISON STUDY: 08/18/2019 TECHNIQUE: Axial CT of the brain is performed from the vertex to the skull base. IV contrast was not administered for this examination. A dose lowering technique was utilized adhering to the principles of ALARA. CT DOSE: 1245.14 mGy.cm FINDINGS: No intra or extra-axial mass lesions are visualized. There is no CT evidence of acute cortical infarction. There is no evidence of midline shift. There is no acute hemorrhage. No calvarial fractures are visualized. There are patchy white matter hypodensities likely on a small vessel basis. There is no evidence of pathologic ventricular dilatation. There is no evidence of acute sinusitis IMPRESSION: No acute intracranial findings -- CT angio head w con CLINICAL HISTORY: Left sided headache. Right-sided visual change. Possible acute stroke. TECHNIQUE: CT angiography of the head was performed in a dynamic helical fashion during intravenous administration of 119 cc of Optiray 320. MIP imaging was performed. A dose lowering technique was utilized adhering to the principles of ALARA. CT DOSE: COMPARISON STUDY: MR angiography the brain performed January 2011 FINDINGS: There are no lesion suspicious for aneurysm. There are no major intracranial branch occlusions. The dural venous sinuses appear patent. IMPRESSION: Unremarkable CT angiography of the brain. -- CT angio neck with con CLINICAL HISTORY: Left-sided headache. Right-sided visual change. Possible acute stroke. COMPARISON STUDY: Carotid Doppler ultrasound performed in 2010 TECHNIQUE: CT angiography was performed from the aortic arch to the skull base. MIP imaging was performed. The patient was scanned in a dynamic helical fashion during intravenous administration of 119 cc of Optiray 320. A dose lowering technique was utilized adhering to the principles of ALARA. CT DOSE: Technique: CT angiogram of the carotid and vertebral arteries was obtained using intravenous contrast and 3-D reconstruction. NASCET criteria was utilized. Findings: A 6 mm right lobe thyroid nodule. The right carotid revealed no evidence of aneurysm and no evidence of dissection. There is no evidence of hemodynamic significant stenosis. The left carotid revealed no evidence of hemodynamic significant stenosis. There is no evidence of aneurysm. There is no evidence of dissection. There is no evidence of hemodynamically significant vertebral stenosis. There is no evidence of vertebral dissection. IMPRESSION: No evidence of hemodynamically significant carotid or vertebral artery stenosis. No evidence of dissection. -- XR chest 1V portable CLINICAL HISTORY: cva sx COMPARISON STUDY: Chest radiograph August 18, 2019. FINDINGS: Lung volumes are normal. There is no pneumothorax or pleural effusion. No consolidation is present. There is no evidence for pulmonary edema. Cardiomegaly is unchanged. Linear left midlung opacity is unchanged and favor scarring or atelectasis. No consolidation is identified. Note is again made of scoliosis of the thoracolumbar spine, partially imaged. IMPRESSION: No acute cardiopulmonary findings. No change in appearance of the chest. Consultation(s): Case was discussed with Dr. Sebastian, [facility] hospitalist, who will evaluate the patient for admission. HPI: The patient is a pleasant 76-year-old woman with a past medical history of migraines, hyperlipidemia, reflux, hypertension who presents emergency department with vomiting that has been recurrent whenever attempting to eat since yesterday evening. She denies any nausea per se preceding the vomiting. She denies any recent cough, congestion, chest pain, shortness of breath, fevers, chills, diarrhea or urinary symptoms. She denies any known COVID-19 exposures. ROS: See above HPI for pertinent positives & negatives. A total of 10 systems reviewed and were otherwise negative. PAST MEDICAL HISTORY:See Below PAST SURGICAL HISTORY:See Below FAMILY HISTORY:See Below SOCIAL HISTORY:See Below HOME MEDICATIONS:See Below ALLERGIES:See Below VITALS:See Below PHYSICAL EXAMINATION: GENERAL: Awake, alert, fatigued-appearing, in no distress HENT: Normocephalic, atraumatic. Oropharynx with dry mucous membranes and otherwise unremarkable. EYES: Normal conjunctiva. Sclera non-icteric. EOMI. No nystamgus. PEARRL. Visual perera grossly intact. NECK: Supple. No nuchal rigidity. FROM. No JVD. RESPIRATORY: Clear to auscultation. CARDIAC: Regular rate, normal rhythm. Extremities warm and well perfused. Pulses equal. ABDOMEN: Soft, non-distended. No tenderness to palpation. No rebound or guarding. No masses. RECTAL: Deferred. MUSCULOSKELETAL: Chest examination reveals no tenderness. The back is symmetrical on inspection without obvious abnormality. There is no CVA tenderness to palpation. No joint edema. LOWER EXTREMITIES: Calves are equal size bilaterally and non-tender. No edema. No discoloration. NEURO: Normal sensorium. No sensory or motor deficits noted. 5/5 strength and SILT x 4 extremities. Cerebellar function intact including oagnae-[id number], alternating palms. SKIN: No rash or jaundice noted. 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: No Beliefs That Will Affect Care: None Current Living Situation: Family Other Information That Helps Us Care for You: No Feels Safe at Home: Yes Safety Concerns: Feels Safe At This Time Assistive Devices: Walker Allergies Allergies Allergy/AdvReac Type Severity Reaction Status Date / Time phenazopyridine AdvReac Unknown HEADACHE, Verified 10/28/20 13:10 VISUAL PROBLEMS Home Meds Home Medications Medication Instructions Recorded Confirmed latanoprost 0.005 % eye drops 1 drops OPB HS ml 06/20/19 10/28/20 losartan 50 mg tablet 50 mg PO QAM #90 tab 06/20/19 10/28/20 simvastatin 10 mg tablet 10 mg PO HS tab 06/20/19 10/28/20 triamterene 37.5 1 tab PO QAM #90 tab 06/20/19 10/28/20 mg-hydrochlorothiazide 25 mg tablet zafirlukast 20 mg tablet 20 mg PO Q12H 10/02/19 10/28/20 apixaban 5 mg tablet 5 mg PO BID #180 tab 06/03/20 10/28/20 prednisone 0 mg PO UD 10/28/20 10/28/20 Results & Data (ED) Vital Signs Vital Signs - 24 hr 10/28/20 11:14 10/28/20 12:34 10/28/20 13:30 Temperature 36.9 C Temperature Source Oral Pulse Rate 82 65 90 Pulse Rate [Apical] 83 Pulse Rate from SpO2 Sensor 69 89 Pulse Rhythm [Apical] Irregular Pulse Strength [Apical] Normal Respiratory Rate 20 18 22 Respiratory Effort / Characteristics Non-Labored Spontaneous Respiratory Depth Normal Blood Pressure 145/81 H 149/81 H 132/85 Blood Pressure [Left Arm] 132/85 Blood Pressure Mean 102 87 113 Blood Pressure Mean [Left Arm] 100 Blood Pressure Position [Left Arm] Semi-fowlers Pulse Oximetry 92 94 96 Oxygen Delivery Method Room Air Room Air Sepsis Recent Fever Within 48 Hours No Sepsis New/Unexplained Change in Mental Status No Sepsis Action Taken by Nursing No Action Required 10/28/20 15:05 Temperature Temperature Source Pulse Rate 72 Pulse Rate [Apical] Pulse Rate from SpO2 Sensor Pulse Rhythm [Apical] Pulse Strength [Apical] Respiratory Rate 23 Respiratory Effort / Characteristics Respiratory Depth Blood Pressure 179/91 H Blood Pressure [Left Arm] Blood Pressure Mean 103 Blood Pressure Mean [Left Arm] Blood Pressure Position [Left Arm] Pulse Oximetry Oxygen Delivery Method Sepsis Recent Fever Within 48 Hours Sepsis New/Unexplained Change in Mental Status Sepsis Action Taken by Nursing Laboratory Data Attestation: I reviewed the patient's lab results. Result diagrams: 10/28/20 11:31 10/28/20 11:31 Lab Results 10/28/20 10/28/20 10/28/20 Range/Units 11:31 11:31 11:31 WBC 15.41 H (4.8-10.8) K/uL RBC 4.78 (4.2-5.4) M/uL Hgb 14.7 (12.0-16.0) g/dL Hct 42.9 (37-47) % MCV 89.7 (80-100) fL MCH 30.8 (25-34) pg MCHC 34.3 (32-36) g/dL RDW Std Deviation 46.0 (36.4-46.3) fL RDW Coeff of Dia 14.1 (11.5-14.5) % Plt Count 293 (130-400) K/uL MPV 10.3 (7.4-10.4) fL Immature Gran % (Auto) 0.3 % Neut % (Auto) 72.1 % Lymph % (Auto) 20.7 % Benton % (Auto) 6.6 % Eos % (Auto) 0.2 % Baso % (Auto) 0.1 % Neut # (Auto) 11.12 H (1.4-6.5) K/uL Lymph # (Auto) 3.19 (1.2-3.4) K/uL Benton # (Auto) 1.01 H (0.11-0.59) K/uL Eos # (Auto) 0.03 (0-0.5) K/uL Baso # (Auto) 0.01 (0-0.2) K/uL Immature Gran # (Auto) 0.05 H (0.00-0.02) K/uL ESR (0-21) mm/hr PT 11.2 (9.0-12.0) Seconds INR 1.1 (0.9-1.1) APTT 28.9 (21.0-31.0) Seconds PTT Ratio 1.0 Sodium 129 L (136-145) mmol/L Potassium 3.6 (3.5-5.1) mmol/L Chloride 92 L (98-107) mmol/L Carbon Dioxide 31 (21-32) mmol/L Anion Gap 6.0 (3-11) BUN 16 (7-18) mg/dl Creatinine 0.92 (0.6-1.2) mg/dl Est Cr Clr Drug Dosing 43.0 ml/min Est GFR ( Amer) 65.3 Est GFR (Non-Af Amer) 56.4 BUN/Creatinine Ratio 17.2 (10-20) Glucose 106 H (70-99) mg/dl Osmolality (280-300) mOsm/kg Calcium 9.4 (8.5-10.1) mg/dl Phosphorus (2.5-4.9) mg/dl Magnesium (1.8-2.4) mg/dl Total Bilirubin 0.8 (0.2-1) mg/dl AST 12 L (15-37) U/L ALT 16 (12-78) U/L Alkaline Phosphatase 62 (45-117) U/L Troponin I (0-0.045) ng/ml C-Reactive Protein (0-0.29) mg/dl Total Protein 7.6 (6.4-8.2) gm/dl Albumin 3.6 (3.4-5.0) gm/dl Globulin 4.0 (2.5-4.0) gm/dl Albumin/Globulin Ratio 0.9 (0.9-2) Urine Color Urine Appearance (Clear) Urine pH (4.5-7.5) Ur Specific Buckley (1.000-1.030) Urine Protein (Negative) Urine Glucose (UA) (Negative) Urine Ketones (Negative) Urine Blood (Negative) Urine Nitrite (Negative) Urine Bilirubin (Negative) Urine Urobilinogen (Negative) Ur Leukocyte Esterase (Negative) Urine Osmolality (500-800) mOsm/kg SARS-CoV-2 Ag (Rapid) (Negative) 10/28/20 10/28/20 10/28/20 Range/Units 11:31 11:31 11:31 WBC (4.8-10.8) K/uL RBC (4.2-5.4) M/uL Hgb (12.0-16.0) g/dL Hct (37-47) % MCV (80-100) fL MCH (25-34) pg MCHC (32-36) g/dL RDW Std Deviation (36.4-46.3) fL RDW Coeff of Dia (11.5-14.5) % Plt Count (130-400) K/uL MPV (7.4-10.4) fL Immature Gran % (Auto) % Neut % (Auto) % Lymph % (Auto) % Benton % (Auto) % Eos % (Auto) % Baso % (Auto) % Neut # (Auto) (1.4-6.5) K/uL Lymph # (Auto) (1.2-3.4) K/uL Benton # (Auto) (0.11-0.59) K/uL Eos # (Auto) (0-0.5) K/uL Baso # (Auto) (0-0.2) K/uL Immature Gran # (Auto) (0.00-0.02) K/uL ESR 29 H (0-21) mm/hr PT (9.0-12.0) Seconds INR (0.9-1.1) APTT (21.0-31.0) Seconds PTT Ratio Sodium (136-145) mmol/L Potassium (3.5-5.1) mmol/L Chloride (98-107) mmol/L Carbon Dioxide (21-32) mmol/L Anion Gap (3-11) BUN (7-18) mg/dl Creatinine (0.6-1.2) mg/dl Est Cr Clr Drug Dosing ml/min Est GFR ( Amer) Est GFR (Non-Af Amer) BUN/Creatinine Ratio (10-20) Glucose (70-99) mg/dl Osmolality (280-300) mOsm/kg Calcium (8.5-10.1) mg/dl Phosphorus 3.9 (2.5-4.9) mg/dl Magnesium 2.3 (1.8-2.4) mg/dl Total Bilirubin (0.2-1) mg/dl AST (15-37) U/L ALT (12-78) U/L Alkaline Phosphatase (45-117) U/L Troponin I < 0.015 (0-0.045) ng/ml C-Reactive Protein < 0.29 Cancelled (0-0.29) mg/dl Total Protein (6.4-8.2) gm/dl Albumin (3.4-5.0) gm/dl Globulin (2.5-4.0) gm/dl Albumin/Globulin Ratio (0.9-2) Urine Color Urine Appearance (Clear) Urine pH (4.5-7.5) Ur Specific Buckley (1.000-1.030) Urine Protein (Negative) Urine Glucose (UA) (Negative) Urine Ketones (Negative) Urine Blood (Negative) Urine Nitrite (Negative) Urine Bilirubin (Negative) Urine Urobilinogen (Negative) Ur Leukocyte Esterase (Negative) Urine Osmolality (500-800) mOsm/kg SARS-CoV-2 Ag (Rapid) (Negative) 10/28/20 10/28/20 10/28/20 Range/Units 11:31 11:40 11:40 WBC (4.8-10.8) K/uL RBC (4.2-5.4) M/uL Hgb (12.0-16.0) g/dL Hct (37-47) % MCV (80-100) fL MCH (25-34) pg MCHC (32-36) g/dL RDW Std Deviation (36.4-46.3) fL RDW Coeff of Dia (11.5-14.5) % Plt Count (130-400) K/uL MPV (7.4-10.4) fL Immature Gran % (Auto) % Neut % (Auto) % Lymph % (Auto) % Benton % (Auto) % Eos % (Auto) % Baso % (Auto) % Neut # (Auto) (1.4-6.5) K/uL Lymph # (Auto) (1.2-3.4) K/uL Benton # (Auto) (0.11-0.59) K/uL Eos # (Auto) (0-0.5) K/uL Baso # (Auto) (0-0.2) K/uL Immature Gran # (Auto) (0.00-0.02) K/uL ESR (0-21) mm/hr PT (9.0-12.0) Seconds INR (0.9-1.1) APTT (21.0-31.0) Seconds PTT Ratio Sodium (136-145) mmol/L Potassium (3.5-5.1) mmol/L Chloride (98-107) mmol/L Carbon Dioxide (21-32) mmol/L Anion Gap (3-11) BUN (7-18) mg/dl Creatinine (0.6-1.2) mg/dl Est Cr Clr Drug Dosing ml/min Est GFR ( Amer) Est GFR (Non-Af Amer) BUN/Creatinine Ratio (10-20) Glucose (70-99) mg/dl Osmolality 274 L (280-300) mOsm/kg Calcium (8.5-10.1) mg/dl Phosphorus (2.5-4.9) mg/dl Magnesium (1.8-2.4) mg/dl Total Bilirubin (0.2-1) mg/dl AST (15-37) U/L ALT (12-78) U/L Alkaline Phosphatase (45-117) U/L Troponin I (0-0.045) ng/ml C-Reactive Protein (0-0.29) mg/dl Total Protein (6.4-8.2) gm/dl Albumin (3.4-5.0) gm/dl Globulin (2.5-4.0) gm/dl Albumin/Globulin Ratio (0.9-2) Urine Color Yellow Urine Appearance Clear (Clear) Urine pH 8.5 H (4.5-7.5) Ur Specific Buckley 1.010 (1.000-1.030) Urine Protein Negative (Negative) Urine Glucose (UA) Negative (Negative) Urine Ketones Negative (Negative) Urine Blood Negative (Negative) Urine Nitrite Negative (Negative) Urine Bilirubin Negative (Negative) Urine Urobilinogen Negative (Negative) Ur Leukocyte Esterase Negative (Negative) Urine Osmolality 284 L (500-800) mOsm/kg SARS-CoV-2 Ag (Rapid) (Negative) 10/28/20 Range/Units 15:23 WBC (4.8-10.8) K/uL RBC (4.2-5.4) M/uL Hgb (12.0-16.0) g/dL Hct (37-47) % MCV (80-100) fL MCH (25-34) pg MCHC (32-36) g/dL RDW Std Deviation (36.4-46.3) fL RDW Coeff of Dia (11.5-14.5) % Plt Count (130-400) K/uL MPV (7.4-10.4) fL Immature Gran % (Auto) % Neut % (Auto) % Lymph % (Auto) % Benton % (Auto) % Eos % (Auto) % Baso % (Auto) % Neut # (Auto) (1.4-6.5) K/uL Lymph # (Auto) (1.2-3.4) K/uL Benton # (Auto) (0.11-0.59) K/uL Eos # (Auto) (0-0.5) K/uL Baso # (Auto) (0-0.2) K/uL Immature Gran # (Auto) (0.00-0.02) K/uL ESR (0-21) mm/hr PT (9.0-12.0) Seconds INR (0.9-1.1) APTT (21.0-31.0) Seconds PTT Ratio Sodium (136-145) mmol/L Potassium (3.5-5.1) mmol/L Chloride (98-107) mmol/L Carbon Dioxide (21-32) mmol/L Anion Gap (3-11) BUN (7-18) mg/dl Creatinine (0.6-1.2) mg/dl Est Cr Clr Drug Dosing ml/min Est GFR ( Amer) Est GFR (Non-Af Amer) BUN/Creatinine Ratio (10-20) Glucose (70-99) mg/dl Osmolality (280-300) mOsm/kg Calcium (8.5-10.1) mg/dl Phosphorus (2.5-4.9) mg/dl Magnesium (1.8-2.4) mg/dl Total Bilirubin (0.2-1) mg/dl AST (15-37) U/L ALT (12-78) U/L Alkaline Phosphatase (45-117) U/L Troponin I (0-0.045) ng/ml C-Reactive Protein (0-0.29) mg/dl Total Protein (6.4-8.2) gm/dl Albumin (3.4-5.0) gm/dl Globulin (2.5-4.0) gm/dl Albumin/Globulin Ratio (0.9-2) Urine Color Urine Appearance (Clear) Urine pH (4.5-7.5) Ur Specific Buckley (1.000-1.030) Urine Protein (Negative) Urine Glucose (UA) (Negative) Urine Ketones (Negative) Urine Blood (Negative) Urine Nitrite (Negative) Urine Bilirubin (Negative) Urine Urobilinogen (Negative) Ur Leukocyte Esterase (Negative) Urine Osmolality (500-800) mOsm/kg SARS-CoV-2 Ag (Rapid) Negative (Negative) Administered Medications Latanoprost (Latanoprost 0.005% Op Soln 2.5 Ml Btl) 1 drops OPB [facility] Stop: 11/27/20 20:59 Last Admin: 10/28/20 21:21 Dose: 1 drops Documented by: [id number] Simvastatin (Simvastatin 10 Mg Tab) 10 mg PO [facility] Stop: 11/27/20 20:59 Last Admin: 10/28/20 21:21 Dose: 10 mg Documented by: [id number] Discontinued Medications Acetaminophen (Ofirmev) 1,000 mg in 100 mls @ 400 mls/hr IV NOW STA Stop: 10/28/20 12:52 Last Infusion: 10/28/20 13:23 Dose: 0 mls/hr Documented by: [id number] Admin: 10/28/20 13:08 Dose: 400 mls/hr Documented by: [id number] Prochlorperazine (Compazine) 1 mls @ 1 mls/min IV ONE ONE Stop: 10/28/20 12:39 Last Admin: 10/28/20 13:07 Dose: 1 mls/min Documented by: [id number] Sodium Chloride (Nss 1000ml) 1,000 mls @ 999 mls/hr IV .Q1H1M ONE Stop: 10/28/20 13:41 Last Infusion: 10/28/20 13:57 Dose: 0 mls/hr Documented by: [id number] Admin: 10/28/20 12:56 Dose: 999 mls/hr Documented by: [id number] Ioversol (Optiray 320 125ml) 119 ml IV ONCE ONE Stop: 10/28/20 13:21 Last Admin: 10/28/20 13:21 Dose: 119 ml Documented by: [id number] Discharge Plan Visit Data Chief Complaint: Neuro Symptoms/Deficit Stated Complaint: STROKE SYMPTOMS YESTERDAY,HEADACHE,VISUAL ISSUES ED Provider: Kevin Jones Discharge Problem: Slurred speech, A-fib, Headache, Blurred vision, right eye, On apixaban therapy Patient Disposition: Admitted As Inpatient Discharge Instructions Interventions: ED Discharge Assessment Last Done: 10/28/20 17:57 Discharge Problem: A-fib Qualifiers: Atrial fibrillation type: unspecified Qualified Code(s): I48.91 - Unspecified atrial fibrillation Headache Qualifiers: Headache type: unspecified Headache chronicity pattern: unspecified pattern Intractability: not intractable Qualified Code(s): R51.9 - Headache, unspecified
--- NOTE | 2020-10-28 13:32 | CT Scan Report ---
CT head/brain wo con CLINICAL HISTORY: Headache and visual change COMPARISON STUDY: 08/18/2019 TECHNIQUE: Axial CT of the brain is performed from the vertex to the skull base. IV contrast was not administered for this examination. A dose lowering technique was utilized adhering to the principles of ALARA. CT DOSE: 1245.14 mGy.cm FINDINGS: No intra or extra-axial mass lesions are visualized. There is no CT evidence of acute cortical infarc tion. There is no evidence of midline shift. There is no acute hemorrhage. No calvarial fractures ar e visualized. There are patchy white matter hypodensities likely on a small vessel basis. There is no evidence of pathologic ventricular dilatation. There is no evidence of acute sinusitis IMPRESSION: No acute intracranial findings ACT 112: Negative or not required by law. Electronically signed by: Hill Carrera M.D. 10/28/2020 1:31 PM
--- NOTE | 2020-10-28 13:38 | CT Scan Report ---
CT angio neck with con CLINICAL HISTORY: Left-sided headache. Right-sided visual change. Possible acute stroke. COMPARISON STUDY: Carotid Doppler ultrasound performed in 2011 TECHNIQUE: CT angiography was performed from the aortic arch to the skull base. MIP imaging was perfo rmed. The patient was scanned in a dynamic helical fashion during intravenous administration of 119 c c of Optiray 320. A dose lowering technique was utilized adhering to the principles of ALARA. CT DOSE: Technique: CT angiogram of the carotid and vertebral arteries was obtained using intravenous contrast and 3-D reconstruction. NASCET criteria was utilized. Findings: A 6 mm right lobe thyroid nodule. The right carotid revealed no evidence of aneurysm and no evidence of dissection. There is no evidenc e of hemodynamic significant stenosis. The left carotid revealed no evidence of hemodynamic significant stenosis. There is no evidence of an eurysm. There is no evidence of dissection. There is no evidence of hemodynamically significant vertebral stenosis. There is no evidence of verte bral dissection. IMPRESSION: No evidence of hemodynamically significant carotid or vertebral artery stenosis. No evidence of disse ction. ACT 112: Negative or not required by law. Electronically signed by: Hill Carrera M.D. 10/28/2020 1:37 PM
--- NOTE | 2020-10-28 13:46 | CT Scan Report ---
CT angio head w con CLINICAL HISTORY: Left sided headache. Right-sided visual change. Possible acute stroke. TECHNIQUE: CT angiography of the head was performed in a dynamic helical fashion during intravenous a dministration of 119 cc of Optiray 320. MIP imaging was performed. A dose lowering technique was util ized adhering to the principles of ALARA. CT DOSE: COMPARISON STUDY: MR angiography the brain performed January 2011 FINDINGS: There are no lesion suspicious for aneurysm. There are no major intracranial branch occlusi ons. The dural venous sinuses appear patent. IMPRESSION: Unremarkable CT angiography of the brain. ACT 112: Negative or not required by law. Electronically signed by: Hill Carrera M.D. 10/28/2020 1:45 PM
--- NOTE | 2020-10-28 13:46 | XRay Report ---
XR chest 1V portable CLINICAL HISTORY: cva sx COMPARISON STUDY: Chest radiograph August 18, 2019. FINDINGS: Lung volumes are normal. There is no pneumothorax or pleural effusion. No consolidation is present. There is no evidence for pulmonary edema. Cardiomegaly is unchanged. Linear left midlung [place] is unchanged and favor scarring or atelectasis. No consolidation is identified. Note is again ma de of scoliosis of the thoracolumbar spine, partially imaged. IMPRESSION: No acute cardiopulmonary findings. No change in appearance of the chest. ACT 112: Negative or not required by law. Electronically signed by: Naveen Bustos M.D. 10/28/2020 1:45 PM
--- NOTE | 2020-10-28 14:40 | History & Physical Report ---
Date of Service October 28, 2020 Assessment & Plan (1) Headache: New onset headache left sided temporal Concern for giant cell arteritis and will consult general surgery for possible biopsy biopsy. ESR < 50 however she has been on prednisone for the last 4 days. Daughter will find out dose of prednisone patient took this morning and will start prednisone 60mg PO daily pending biopsy results. Discussed with Dr. Gleason and will complete stroke work-up: MRI without contrast TTE would not plant changer therefore deferred. Lipid panel and HbA1c in a.m. Consult neurology (2) Blurred vision, right eye: GCA/stroke work-up as above. No longer present on exam. (3) Slurred speech: Stroke work-up as above. (4) Hypertension: Continue losartan 50 mg p.o. every morning Hold triamterene/hydrochlorothiazide due to hyponatremia (5) Hyponatremia: Acute on chronic suspect due to hydrochlorothiazide use. Hold hydrochlorothiazide, NSS bolus given in ER should be sufficient to bring this level back up. Repeat sodium level in a.m. (6) A-fib: Hold Eliquis for potential biopsy tomorrow. History of Present Illness Chief Complaint: Headache, right eye vision changes, slurred speech Primary Care Provider: Yovanny Joseph MD Abbie Rob is an 85-year-old female who presents to the ER with headache, right eye vision changes and slurred speech. All symptoms have resolved on arrival to the ER. Initial symptoms started at 11 AM yesterday. New onset left-sided headache on her temporal area. No history of migraines or recurrent headaches and this is completely unusual for her. Severity 6-7/10 at worst, lasting for several hours. She took some Tylenol and slept for 5 to 6 hours and felt improved after this. Associated right eye blurring while reading during the time of this headache. She denies any vision loss, floaters, flashing lights. She reports any her right eye was affected as when she covered this eye her vision was normal. After she woke up in the evening her headache slowly came back and her daughter noted some slurring of her speech around 9:30 PM. She was making on the right words but not being able to think as fast and slurring words. No prior history of heart attack or stroke. Of note she has been on prednisone for 3 to 4 days for left knee pain. Unfortunately she does not know what dose she has been taking for this but reports taking it this morning. In the ER CT head, CTA head/neck were unremarkable. Leukocytosis noted suspect secondary to recent prednisone use. She denies any infective symptoms such as fevers, chills, cough, sore throat, sinus pain, shortness of breath, loss of taste or smell, dysuria, flank pain, abdominal pain, diarrhea, known COVID-19 exposure. She is also admitted to be hyponatremic on hydrochlorothiazide. She was referred to medicine for admission and ongoing management of stroke symptoms and hyponatremia. Allergies Allergy/AdvReac Type Severity Reaction Status Date / Time phenazopyridine AdvReac Unknown HEADACHE, Verified 10/28/20 13:10 VISUAL PROBLEMS Home Medications Medication Instructions Recorded Confirmed Type latanoprost 0.005 % eye drops 1 drops OPB HS ml 06/20/19 10/28/20 History losartan 50 mg tablet 50 mg PO QAM #90 tab 06/20/19 10/28/20 History simvastatin 10 mg tablet 10 mg PO HS tab 06/20/19 10/28/20 History triamterene 37.5 1 tab PO QAM #90 tab 06/20/19 10/28/20 History mg-hydrochlorothiazide 25 mg tablet zafirlukast 20 mg tablet 20 mg PO Q12H 10/02/19 10/28/20 History apixaban 5 mg tablet 5 mg PO BID #180 tab 06/03/20 10/28/20 History prednisone 0 mg PO UD 10/28/20 10/28/20 History Past Med/Surg History Medical History (Updated 10/29/20 @ 11:52 by Luis Sebastian MD) A-fib Asthma Closed rib fracture Hypertension Surgical History No pertinent past surgical history Social History Smoking Status: Former smoker Smoking End Date: years ago; Hx Alcohol Use: No Hx Substance Use: No Preferred Language: Estonian Communication Ability: Effective Ice Skating Instructor Required: No Beliefs That Will Affect Care: None Current Living Situation: Family Other Information That Helps Us Care for You: No Feels Safe at Home: Yes Safety Concerns: Feels Safe At This Time Assistive Devices: None Review of Systems Review of Systems: All systems reviewed & are unremarkable except as noted in HPI & below Physical Exam Constitutional: well developed and well nourished; no acute distress Eyes: PERRL, conjunctivae normal, anicteric sclerae normal visual perera by confrontation and EOM intact bilaterally (Without diplopia or nystagmus) ENMT: external ear and nose normal, oropharynx normal Tenderness over the temporal artery on the left side Neck: trachea midline Respiratory: normal respiratory effort, lungs clear to auscultation Cardiovascular: Rate/Rhythm: regular rate and + irregularly irregular Heart Sounds: no murmur Vessels: no JVD Extremities: normal capillary refill; no calf tenderness and no pedal edema Gastrointestinal (Abdomen): normal bowel sounds, soft, nontender, no hepatosplenomegaly Musculoskeletal: no cyanosis or clubbing, extremities motor strength 5/5 Skin: no rashes, warm and dry Neurologic: moves all extremities and awake; no focal motor deficits and not confused Cranial Nerves: PERRL, normal accommodation, EOM intact bilaterally, normal facial strength, tongue midline, able to rotate head bilaterally, able to elevate shoulders bilaterally, no nystagmus and symmetric palate elevation; + hearing impairment (At baseline) Psychiatric: A+Ox3, euthymic affect Genitourinary: no CVA tenderness Results & Data Results & Data ([facility]) Vital Signs (Past 12 Hours) Vital Signs Temp Pulse Pulse Resp BP BP Pulse Ox 10/28/20 13:30 83 16 132/85 96 10/28/20 12:34 65 18 149/81 H 94 10/28/20 11:14 36.9 C 82 20 145/[address] head/brain wo con IMPRESSION: No acute intracranial findings CT angio head w con IMPRESSION: Unremarkable CT angiography of the brain. CT angio neck with con IMPRESSION: No evidence of hemodynamically significant carotid or vertebral artery stenosis. No evidence of dissection. XR chest 1V portable IMPRESSION: No acute cardiopulmonary findings. No change in appearance of the chest. Medications Administered ER medications given: NSS 1 L bolus Compazine 5 mg IV Acetaminophen 1 g IV ECG Indication: other (CVA work-up) Rate (beats per minute): 72 Rhythm: atrial fibrillation Findings: no acute ischemic change Comparison ECG Date: from (August 18, 2019) Change: no significant change Code Status & VTE Plan Code Status Full VTE Prophylaxis Plan VTE Prophylaxis will be ordered: No Reason for no VTE drug order: Contraindicated (Eliquis on hold for biopsy) PG Care Time/CCT Total # of Minutes Spent Total Time Spent with Patient: Total time spent is greater than 50% in coordination of care (as documented) at patient's floor/unit and/or counseling patient: Coding Level of Care Code 53497 OBS Care - Level 3 Diagnoses Headache R51.9 Blurred vision, right eye H53.8 Slurred speech R47.81 Hypertension I10 Hyponatremia E87.1 A-fib I48.91
--- NOTE | 2020-10-28 18:00 | Magnetic Resonance Report ---
MR brain wo con HISTORY: 85 years-old Female R eye blurring, slurred speech, left headache acute strokelike symptoms with headache COMPARISON: CT head, CTA head and neck studies of same day TECHNIQUE: Multiple planar multisequence MRI of the brain was obtained without the use of IV contrast . FINDINGS: Pediatric Genetic Counselor localizer images demonstrate no gross extracranial abnormality. There is no restricted diffusio n to suggest acute or subacute infarct. No pathologic blooming artifact on the T2 star series. There is no acute intracranial hemorrhage, midline shift, abnormal extra-axial collection, hydrocepha patrick or intracranial mass. Age-related involutional changes. Extensive T2/FLAIR hyperintensities about the white matter suggest chronic microvascular ischemic disease. Small remote lacunar infarct of the left caudate nucleus. Small remote infarct with mild encephalomalacia and gliosis is noted within th e left parietal lobe. Cerebral venous sinuses and major arterial flow voids at the level the skull base appear patent. Prio r bilateral lens replacement. Hyperostosis frontalis interna. Paranasal sinuses and mastoid air cells are clear. IMPRESSION: 1. No acute intracranial abnormality, specifically there is no evidence of acute or subacute infarct. 2. Age-related involutional changes with chronic microvascular ischemic disease. 3. Remote infarctions as above. ACT 112: Negative or not required by law. The above report was generated using voice recognition software. It may contain grammatical, syntax o r spelling errors. Electronically signed by: Waldo Snow M.D. 10/28/2020 5:58 PM
[2020-10-28] MEDS ORDERED: PHARMACIST DISCHARGE MED REC CONSULT PRN (19:15)
--- NOTE | 2020-10-28 20:30 | Surgery Consultation ---
Date of Consultation October 28, 2020 Assessment & Plan (1) Blurred vision, right eye: -concern noted by hospitalist for giant cell arteritis -pt offered a temporal artery biopsy--she is unsure if she wishes to proceed, therefore we will do the following: -add to OR schedule for Dr. Mittal, temporal artery biopsy, side to be determined -if pt. decides she does not wish to proceed will cancel procedure in am -make npo after midnight -COVID test performed and noted to be (-) -discussed with hospitalist about Eliquis--ok to hold Supervising Physician Co-Signing Physician Notes discussed with REESE Green. 85 y/o female with severe left sided headache, right sided vision change which is now resolved. Already on low dose steroid for arthritis. Mile ESR elevation. Low risk for temporal arteritis, but have offered her a biopsy, likely left side. She will think about it, in the mean time we will hold eliquis, make her npo after midnight, and add her to schedule for tomorrow. Otherwise she could follow up as an outpatient for biopsy in surgery center. History of Present Illness Attending Physician: Luis Sebastian MD History of Present Illness 85 year old female admitted secondary to left sided headache. The headache was described as an ache without radiatio nor modifying factors. She noted blurred vision in her right eye with her headache. She denies other neurologic symptoms such as extremity weakness, dysarthria, or visual loss. She denies dizziness or lightheadedness. In the past several months, she denies fevers, myalgias, or jaw claudication. She notes her presenting symptoms have completely resolved, and she could not delineate how long her symptoms lasted She has been admitted by the hospitalists. Her labs revealed an elevated ESR despite taking prednisone for arthritis. They are concerned for giant cell arteritis and have requested consultation for temporal artery biopsy. She takes Eliquis for a-fib, and her most recent dose was her am dose on 10/28/20. At the time of my exam she was resting in bed, with no complaints. Allergies Allergy/AdvReac Type Severity Reaction Status Date / Time phenazopyridine AdvReac Unknown HEADACHE, Verified 10/28/20 13:10 VISUAL PROBLEMS Home Medications Medication Instructions Recorded Confirmed Type latanoprost 0.005 % eye drops 1 drops OPB HS ml 06/20/19 10/28/20 History losartan 50 mg tablet 50 mg PO QAM #90 tab 06/20/19 10/28/20 History simvastatin 10 mg tablet 10 mg PO HS tab 06/20/19 10/28/20 History triamterene 37.5 1 tab PO QAM #90 tab 06/20/19 10/28/20 History mg-hydrochlorothiazide 25 mg tablet zafirlukast 20 mg tablet 20 mg PO Q12H 10/02/19 10/28/20 History apixaban 5 mg tablet 5 mg PO BID #180 tab 06/03/20 10/28/20 History prednisone 0 mg PO UD 10/28/20 10/28/20 History Patient History Medical History A-fib Asthma Closed rib fracture Surgical History No pertinent past surgical history Social History Smoking Status: Former smoker Smoking End Date: years ago; Hx Alcohol Use: No Hx Substance Use: No Preferred Language: Zimbabwean Communication Ability: Effective Genetic Technologist Required: No Beliefs That Will Affect Care: None Current Living Situation: Family Other Information That Helps Us Care for You: No Feels Safe at Home: Yes Safety Concerns: Feels Safe At This Time Assistive Devices: Walker Review of Systems Constitutional: no fever, no chills, no body aches and no malaise Eyes: no diplopia right eye blurred vision--resolved Ear, Nose, Mouth, Throat: no ear pain, no ear trauma, no tinnitus and no dizziness Respiratory: no cough and no dyspnea Cardiovascular: no chest pain Gastrointestinal: no abdominal pain, no nausea, no vomiting and no pain with swallowing Genitourinary: no dysuria Musculoskeletal: no myalgia Integumentary: no rash Neurologic: + headache(s); no localized weakness and no numbness Physical Exam Constitutional: well developed and well nourished; no acute distress Eyes: PERRL; no conjunctival abnormality ENMT: Ears: no hearing impairment Neck: trachea midline Respiratory: normal respiratory effort, lungs clear to auscultation Cardiovascular: Rate/Rhythm: regular rate and regular rhythm temporal arteries no palpable bilaterally Gastrointestinal (Abdomen): Percussion/Palpation: abdomen soft; abdomen nontender Musculoskeletal: no calf pain Skin: no rashes, warm and dry Neurologic: CN's II-XI intact bilaterally, moves all extremities and awake Speech / Cognition: normal speech no temporal pain with palpation bilaterally Psychiatric: A+Ox3, euthymic affect Results & Data ([facility]) Vital Signs (Past 12 Hours) Vital Signs Temp Pulse Pulse Pulse Resp BP BP 10/28/20 19:27 36.6 C 63 16 10/28/20 19:23 36.5 C 68 20 10/28/20 17:47 75 20 143/86 H 10/28/20 17:14 93 H 18 139/68 10/28/20 16:10 71 17 150/76 H 10/28/20 15:05 72 23 179/91 H 10/28/20 13:30 90 83 22 132/85 132/85 10/28/20 12:34 65 18 149/81 H 10/28/20 11:14 36.9 C 82 20 145/81 H BP Pulse Ox 10/28/20 19:27 134/77 96 10/28/20 19:23 128/81 96 10/28/20 17:47 95 10/28/20 17:14 93 10/28/20 16:10 10/28/20 15:05 10/28/20 13:30 96 10/28/20 12:34 94 10/28/20 11:14 92 PG Care Time/CCT Total # of Minutes Spent Total Time Spent with Patient: Total time spent is greater than 50% in coordination of care (as documented) at patient's floor/unit and/or counseling patient: Coding Level of Care Code 61007 Inpt Consult Level 5 Diagnoses Blurred vision, right eye H53.8
[2020-10-28] MEDS ORDERED: APIXABAN 5 MG TABLET PO SCH (21:00)
[2020-10-28] MEDS ORDERED: SIMVASTATIN 10 MG TAB PO SCH (21:00)
[2020-10-28] MEDS ORDERED: LATANOPROST 0.005% OP SOLN 2.5 ML BTL OPB SCH (21:00)
[2020-10-28] MEDS ORDERED: INFLUENZA VACCINE HIGH DOSE 65+ 0.7 ML SYR IM ONE (22:00)
[2020-10-29 06:23] LABS: Basophils # (auto) 0.02 K/uL (0-0.2); Basophils % (auto) 0.2 %; Eosinophils # (auto) 0.16 K/uL (0-0.5); Eosinophils % (auto) 1.4 %; Hematocrit (blood only) 42.6 % (37-47); Hemoglobin 14.4 g/dL (12.0-16.0); Immature Granulocytes # (auto) 0.02 K/uL (0.00-0.02); Immature Granulocytes % (auto) 0.2 %; Lymphocytes # (auto) 3.72 K/uL (1.2-3.4); Lymphocytes % (auto) 31.7 %; Mean Corpuscular Hemoglobin 30.3 pg (25-34); Mean Corpuscular Hgb Conc 33.8 g/dL (32-36); Mean Corpuscular Volume 89.5 fL (80-100); Mean Platelet Volume 10.6 fL (7.4-10.4); Monocytes # (auto) 1.02 K/uL (0.11-0.59); Monocytes % (auto) 8.7 %; Neutrophils # (auto) 6.79 K/uL (1.4-6.5); Neutrophils % (auto) 57.8 %; Platelet Count 296 K/uL (130-400); RDW Coefficient of Variation 14.2 % (11.5-14.5); RDW Standard Deviation 46.9 fL (36.4-46.3); Red Blood Count 4.76 M/uL (4.2-5.4); White Blood Count 11.73 K/uL (4.8-10.8)
[2020-10-29] MEDS ORDERED: LIDOCAINE HCL 2% 2 ML VIAL/AMP(20MG/ML) INFIL ONE (06:55)
[2020-10-29] MEDS ORDERED: MIDAZOLAM HCL 1 MG/ML 2ML VIAL ONE (06:55)
[2020-10-29] MEDS ORDERED: PROPOFOL IV EMULSION 10 MG/ML 20 ML VIAL IV ONE (06:55)
[2020-10-29] MEDS ORDERED: fentaNYL citrate 100 MCG/2 ML VIAL ONE (06:55)
--- NOTE | 2020-10-29 07:00 | Electrocardiogram Report ---
Test Reason : Blood Pressure : / mmHG Vent. Rate : 072 BPM Atrial Rate : 063 BPM P-R Int : 000 ms QRS Dur : 088 ms QT Int : 384 ms P-R-T Axes : 000 006 043 degrees QTc Int : 420 ms Poor data quality, interpretation may be adversely affected Atrial fibrillation Septal infarct (cited on or before 10-OCT-2011) Abnormal ECG When compared with ECG of 18-AUG-2019 21:12, No significant change Confirmed by Akash Mcguire ([id number]) on 10/29/2020 7:00:01 AM Referred By: Confirmed By:Akash Mcguire
[2020-10-29 07:03] LABS: BUN Creatinine Ratio 18.8 (10-20); Calcium 8.6 mg/dl (8.5-10.1); Creatinine Clr Calc Pharmacy 55.1 ml/min; Est GFR (African American) 89.4; Est GFR (Non-African American) 77.1; Potassium 3.2 mmol/L (3.5-5.1)
[2020-10-29] MEDS ORDERED: BACITRACIN OINT 15 GM TUBE ONE (07:03)
[2020-10-29] MEDS ORDERED: LIDOCAINE/EPINEPHRINE 1% 20 ML VIAL ONE (07:03)
[2020-10-29 07:55] LABS: Estimated Average Glucose 134 mg/dl; Hemoglobin A1C 6.3 % (4.5-5.6)
--- NOTE | 2020-10-29 08:31 | Surgery Progress Note ---
Date of Service October 29, 2020 Assessment & Plan (1) Headache: 85-year-old female with left-sided temporal headache, mildly elevated ESR, right-sided vision changes, admitted for further work-up. Surgery was consulted for temporal artery biopsy, the patient has decided that she would like to wait to have the biopsy performed. We briefly discussed the reason for doing the biopsy as well as the risks and benefits. She may follow-up as an outpatient after seeing her primary care doctor if she desires to have the biopsy performed. No surgical intervention desired at this time Discussed the risks of left temporal artery biopsy to include but not limited to bleeding, infection, damage surrounding structures, need for future more extensive surgery, failure to find artery, failure of diagnosis, and the risk of anesthesia Patient may restart Eliquis Advance to heart healthy diet Disposition per primary team General surgery will sign off, call with questions or concerns Patient may follow-up in outpatient clinic if it is determined that she should have temporal artery biopsy for further evaluation (2) Blurred vision, right eye: (3) A-fib: Admission and Anticipated Discharge Date Admission Date: October 28, 2020 Subjective 85-year-old female admitted for work-up of severe headaches and vision changes. A few days ago she started having sudden onset severe left-sided temporal headache which was unlike any headache she had before. This lasted for about a day and a half, however resolved after taking some low-dose steroids for some left knee arthritis. Yesterday she began experiencing some vision changes in her right eye, which consisted of what sounds like floaters. She denies any jaw claudication, no vision changes on the left. No similar episodes in the past. She was admitted for further work-up of her headaches and vision changes and to rule out a stroke. Surgery was consulted for possible temporal artery biopsy as she had a slightly elevated ESR on admission. The patient takes Eliquis for A. fib, and last took it yesterday morning. Review of Systems Review of Systems: All systems reviewed & are unremarkable except as noted in HPI & below Physical Exam Constitutional: WD/WN, vitals as above Eyes: PERRL, conjunctivae normal, anicteric sclerae ENMT: external ear and nose normal, oropharynx normal Neck: trachea midline, no thyromegaly Respiratory: normal respiratory effort, lungs clear to auscultation Cardiovascular: RRR, no murmur, no edema Gastrointestinal (Abdomen): normal bowel sounds, soft, nontender, no hepatosplenomegaly Musculoskeletal: no cyanosis or clubbing, extremities motor strength 5/5 Skin: no rashes, warm and dry Neurologic: PERRL, EOMI, accommodation nl, no face palsy, no dysarthria Psychiatric: A+Ox3, euthymic affect Lymphatic: no cervical or axillary lymphadenopathy Results & Data ([facility]) Vital Signs (Past 12 Hours) Vital Signs Temp Pulse Pulse Resp BP BP Pulse Ox 10/29/20 07:50 36.6 C 82 20 120/75 95 10/29/20 07:21 86 10/29/20 03:19 36.9 C 75 18 133/67 93 10/28/20 23:16 36.5 C 69 16 119/67 97 Laboratory Results Laboratory Results - last 24 hr 10/28/20 10/28/20 10/28/20 11:31 11:31 11:31 WBC 15.41 H RBC 4.78 Hgb 14.7 Hct 42.9 MCV 89.7 MCH 30.8 MCHC 34.3 RDW Std Deviation 46.0 RDW Coeff of Dia 14.1 Plt Count 293 MPV 10.3 Immature Gran % (Auto) 0.3 Neut % (Auto) 72.1 Lymph % (Auto) 20.7 Dewitt % (Auto) 6.6 Eos % (Auto) 0.2 Baso % (Auto) 0.1 Neut # (Auto) 11.12 H Lymph # (Auto) 3.19 Dewitt # (Auto) 1.01 H Eos # (Auto) 0.03 Baso # (Auto) 0.01 Immature Gran # (Auto) 0.05 H ESR PT 11.2 INR 1.1 APTT 28.9 PTT Ratio 1.0 Sodium 129 L Potassium 3.6 Chloride 92 L Carbon Dioxide 31 Anion Gap 6.0 BUN 16 Creatinine 0.92 Est Cr Clr Drug Dosing 43.0 Est GFR ( Amer) 65.3 Est GFR (Non-Af Amer) 56.4 BUN/Creatinine Ratio 17.2 Glucose 106 H Estimat Average Glucose Hemoglobin A1c Osmolality Calcium 9.4 Phosphorus Magnesium Total Bilirubin 0.8 AST 12 L ALT 16 Alkaline Phosphatase 62 Troponin I C-Reactive Protein Total Protein 7.6 Albumin 3.6 Globulin 4.0 Albumin/Globulin Ratio 0.9 Triglycerides Cholesterol LDL Cholesterol, Calc VLDL Cholesterol, Calc HDL Cholesterol Cholesterol/HDL Ratio Urine Color Urine Appearance Urine pH Ur Specific [place] Urine Protein Urine Glucose (UA) Urine Ketones Urine Blood Urine Nitrite Urine Bilirubin Urine Urobilinogen Ur Leukocyte Esterase Urine Osmolality SARS-CoV-2 Ag (Rapid) 10/28/20 10/28/20 10/28/20 11:31 11:31 11:31 WBC RBC Hgb Hct MCV MCH MCHC RDW Std Deviation RDW Coeff of Dia Plt Count MPV Immature Gran % (Auto) Neut % (Auto) Lymph % (Auto) Dewitt % (Auto) Eos % (Auto) Baso % (Auto) Neut # (Auto) Lymph # (Auto) Dewitt # (Auto) Eos # (Auto) Baso # (Auto) Immature Gran # (Auto) ESR 29 H PT INR APTT PTT Ratio Sodium Potassium Chloride Carbon Dioxide Anion Gap BUN Creatinine Est Cr Clr Drug Dosing Est GFR ( Amer) Est GFR (Non-Af Amer) BUN/Creatinine Ratio Glucose Estimat Average Glucose Hemoglobin A1c Osmolality Calcium Phosphorus 3.9 Magnesium 2.3 Total Bilirubin AST ALT Alkaline Phosphatase Troponin I < 0.015 C-Reactive Protein < 0.29 Cancelled Total Protein Albumin Globulin Albumin/Globulin Ratio Triglycerides Cholesterol LDL Cholesterol, Calc VLDL Cholesterol, Calc HDL Cholesterol Cholesterol/HDL Ratio Urine Color Urine Appearance Urine pH Ur Specific [place] Urine Protein Urine Glucose (UA) Urine Ketones Urine Blood Urine Nitrite Urine Bilirubin Urine Urobilinogen Ur Leukocyte Esterase Urine Osmolality SARS-CoV-2 Ag (Rapid) 10/28/20 10/28/20 10/28/20 11:31 11:40 11:40 WBC RBC Hgb Hct MCV MCH MCHC RDW Std Deviation RDW Coeff of Dia Plt Count MPV Immature Gran % (Auto) Neut % (Auto) Lymph % (Auto) Dewitt % (Auto) Eos % (Auto) Baso % (Auto) Neut # (Auto) Lymph # (Auto) Dewitt # (Auto) Eos # (Auto) Baso # (Auto) Immature Gran # (Auto) ESR PT INR APTT PTT Ratio Sodium Potassium Chloride Carbon Dioxide Anion Gap BUN Creatinine Est Cr Clr Drug Dosing Est GFR ( Amer) Est GFR (Non-Af Amer) BUN/Creatinine Ratio Glucose Estimat Average Glucose Hemoglobin A1c Osmolality 274 L Calcium Phosphorus Magnesium Total Bilirubin AST ALT Alkaline Phosphatase Troponin I C-Reactive Protein Total Protein Albumin Globulin Albumin/Globulin Ratio Triglycerides Cholesterol LDL Cholesterol, Calc VLDL Cholesterol, Calc HDL Cholesterol Cholesterol/HDL Ratio Urine Color Yellow Urine Appearance Clear Urine pH 8.5 H Ur Specific [place] 1.010 Urine Protein Negative Urine Glucose (UA) Negative Urine Ketones Negative Urine Blood Negative Urine Nitrite Negative Urine Bilirubin Negative Urine Urobilinogen Negative Ur Leukocyte Esterase Negative Urine Osmolality 284 L SARS-CoV-2 Ag (Rapid) 10/28/20 10/29/20 10/29/20 15:23 05:47 05:47 WBC 11.73 H RBC 4.76 Hgb 14.4 Hct 42.6 MCV 89.5 MCH 30.3 MCHC 33.8 RDW Std Deviation 46.9 H RDW Coeff of Dia 14.2 Plt Count 296 MPV 10.6 H Immature Gran % (Auto) 0.2 Neut % (Auto) 57.8 Lymph % (Auto) 31.7 Dewitt % (Auto) 8.7 Eos % (Auto) 1.4 Baso % (Auto) 0.2 Neut # (Auto) 6.79 H Lymph # (Auto) 3.72 H Dewitt # (Auto) 1.02 H Eos # (Auto) 0.16 Baso # (Auto) 0.02 Immature Gran # (Auto) 0.02 ESR PT INR APTT PTT Ratio Sodium 134 L Potassium 3.2 L Chloride 98 Carbon Dioxide 32 Anion Gap 4.0 BUN 13 Creatinine 0.71 Est Cr Clr Drug Dosing 55.1 Est GFR ( Amer) 89.4 Est GFR (Non-Af Amer) 77.1 BUN/Creatinine Ratio 18.8 Glucose 96 Estimat Average Glucose Hemoglobin A1c Osmolality Calcium 8.6 Phosphorus Magnesium Total Bilirubin AST ALT Alkaline Phosphatase Troponin I C-Reactive Protein Total Protein Albumin Globulin Albumin/Globulin Ratio Triglycerides 131 Cholesterol 166 LDL Cholesterol, Calc 79 VLDL Cholesterol, Calc 26 HDL Cholesterol 61 Cholesterol/HDL Ratio 3 Urine Color Urine Appearance Urine pH Ur Specific [place] Urine Protein Urine Glucose (UA) Urine Ketones Urine Blood Urine Nitrite Urine Bilirubin Urine Urobilinogen Ur Leukocyte Esterase Urine Osmolality SARS-CoV-2 Ag (Rapid) Negative 10/29/20 05:47 WBC RBC Hgb Hct MCV MCH MCHC RDW Std Deviation RDW Coeff of Dia Plt Count MPV Immature Gran % (Auto) Neut % (Auto) Lymph % (Auto) Dewitt % (Auto) Eos % (Auto) Baso % (Auto) Neut # (Auto) Lymph # (Auto) Dewitt # (Auto) Eos # (Auto) Baso # (Auto) Immature Gran # (Auto) ESR PT INR APTT PTT Ratio Sodium Potassium Chloride Carbon Dioxide Anion Gap BUN Creatinine Est Cr Clr Drug Dosing Est GFR ( Amer) Est GFR (Non-Af Amer) BUN/Creatinine Ratio Glucose Estimat Average Glucose 134 Hemoglobin A1c 6.3 H Osmolality Calcium Phosphorus Magnesium Total Bilirubin AST ALT Alkaline Phosphatase Troponin I C-Reactive Protein Total Protein Albumin Globulin Albumin/Globulin Ratio Triglycerides Cholesterol LDL Cholesterol, Calc VLDL Cholesterol, Calc HDL Cholesterol Cholesterol/HDL Ratio Urine Color Urine Appearance Urine pH Ur Specific [place] Urine Protein Urine Glucose (UA) Urine Ketones Urine Blood Urine Nitrite Urine Bilirubin Urine Urobilinogen Ur Leukocyte Esterase Urine Osmolality SARS-CoV-2 Ag (Rapid) Diagnostic Findings MR brain wo con HISTORY: 85 years-old Female R eye blurring, slurred speech, left headache acute strokelike symptoms with headache COMPARISON: CT head, CTA head and neck studies of same day TECHNIQUE: Multiple planar multisequence MRI of the brain was obtained without the use of IV contrast. FINDINGS: Billing Department Supervisor localizer images demonstrate no gross extracranial abnormality. There is no restricted diffusion to suggest acute or subacute infarct. No pathologic blooming artifact on the T2 star series. There is no acute intracranial hemorrhage, midline shift, abnormal extra-axial collection, hydrocephalus or intracranial mass. Age-related involutional changes. Extensive T2/FLAIR hyperintensities about the white matter suggest chronic microvascular ischemic disease. Small remote lacunar infarct of the left caudate nucleus. Small remote infarct with mild encephalomalacia and gliosis is noted within the left parietal lobe. Cerebral venous sinuses and major arterial flow voids at the level the skull base appear patent. Prior bilateral lens replacement. Hyperostosis frontalis interna. Paranasal sinuses and mastoid air cells are clear. IMPRESSION: 1. No acute intracranial abnormality, specifically there is no evidence of acute or subacute infarct. 2. Age-related involutional changes with chronic microvascular ischemic disease. 3. Remote infarctions as above. PG Care Time/CCT Total # of Minutes Spent Total Time Spent with Patient: Total time spent is greater than 50% in coordination of care (as documented) at patient's floor/unit and/or counseling patient: Coding Level of Care Code 62175 Inpt Consult Level 3 Diagnoses Headache R51.9 Headache chronicity pattern: unspecified pattern Headache type: unspecified Intractability: not intractable Blurred vision, right eye H53.8 A-fib I48.91 Atrial fibrillation type: unspecified (1) Headache Headache chronicity pattern: unspecified pattern Headache type: unspecified Intractability: not intractable Qualified Code(s): R51.9 - Headache, unspecified (2) A-fib Atrial fibrillation type: unspecified Qualified Code(s): I48.91 - Unspecified atrial fibrillation
[2020-10-29] MEDS ORDERED: LOSARTAN POTASSIUM 50 MG TAB PO SCH (09:00)
[2020-10-29] MEDS ORDERED: predniSONE 20 MG TAB PO SCH (09:00)
--- NOTE | 2020-10-29 13:22 | Neurology Consultation ---
Date of Consultation October 29, 2020 Assessment & Plan (1) Migraine with aura: Abbie Rob is an 85 yo woman w/ PMH of Afib on apixaban, HTN, h/o migraines, HLD and asthma who p/t [facility] with subacute onset of headache and visual changes. # Left sided headache a/w right eye visual aura: most c/w her h/o migraines. Unclear why it was triggered this week but she notes that cold weather has triggered her migraines in the past, which may have also been the trigger this time. No abnormality noted on MRI brain to explain symptoms. CRP and Plts WNL, ESR only mildly elevated (and is close to where she was several years ago when checked). Suspect recurrent migraine with aura. - would recommend that she use tylenol 1000mg or ibuprofen 600mg as needed for headaches in the future. Could also consider Ubrelvy/Nurtec if needed. - if headache become more frequent than twice per week for at least one month, recommend that she start magnesium 400mg daily - would complete her prednisone course as already directed by PCP for her arthritis. No need to have temporal artery biopsy at this time. # Prediabetes: - should work with PCP with diet/exercise vs starting metformin as she almost meets criteria for filemon diabetes Thank you for this interesting consult. Plan of care discussed with primary team. Please call or text with questions. She is stable for discharge home from a neurological standpoint. (2) Hypertension: (3) On apixaban therapy: (4) Hyponatremia: History of Present Illness Attending Physician: Joe Linton History of Present Illness Abbie Rob is an 85 yo woman w/ PMH of Afib on apixaban, HTN, h/o migraines, HLD and asthma who p/t [facility] with subacute onset of headache and visual changes. ANSWERER ~11am on 10/27/20 when she reports she came in from the cold [place]. In the ED, she was afebrile, BP 145/81, HR 82, RR 20, satting 92% on room air. Labs notable for WBC 15.41, Hb 14.7, Plts 293, Na low at 129, K 3.6, Cl low at 92, Cr 0.92, glucose 106, INR 1.1, LFTs WNL, ESR mildly elevated to 29, CRP<0.29, Ca/Mg/Phos WNL, troponin negative, UA no infection, COVID negative. A1c 6.3, LDL 79. Imaging independently reviewed. CTH shows no hemorrhage or hypodensity, +SVID. CTA H&N shows no LVO, high grade stenosis or aneurysm. MRI brain shows no acute infarct, moderate SVID, mild generalized atrophy, small chronic infarcts in the left cerebellum/left caudate head/left parietal lobe. Of note, she has been on prednisone the last few days for arthritic pain. On examination, she reports that she has a long history of migrainous type headaches that were quite severe when she was going through menopause. Prior headaches would cause a severe headache a/w nausea, photophobia and phonophobia. Would usually take a tylenol and/or rest to help them get better. Since menopause, she has been having intermittent similar headaches triggered by cold weather hitting her face. She notes that two days ago, she went to the [employer] in the cold weather and worked for about thirty minutes. When she came back in, she noticed having a left sided frontotemporal headache associated with nausea. She took 2 tylenol and laid down to rest. The headache was still present a few hours later when she woke up, so she took another 2 tylenol. She tried to read the paper and noticed white spots in her vision that lasted less than one hour. She denied any associated numbness, tingling, weakness, vision loss or speech difficulties during this time. Upon further questioning, she noted that the headache she had 2 days ago was similar to prior headaches that she has had in the past, just more severe in intensity without photo/phonophobia. Denied any jaw claudication or pain on palpation of her temples. Currently feels back to her baseline without further headaches. Was seen by general surgery for possible temporal artery biopsy, has decided to defer at this time. Allergies Allergy/AdvReac Type Severity Reaction Status Date / Time phenazopyridine AdvReac Unknown HEADACHE, Verified 10/28/20 13:10 VISUAL PROBLEMS Home Medications Medication Instructions Recorded Confirmed Type latanoprost 0.005 % eye drops 1 drops OPB HS ml 06/20/19 10/28/20 History losartan 50 mg tablet 50 mg PO QAM #90 tab 06/20/19 10/28/20 History simvastatin 10 mg tablet 10 mg PO HS tab 06/20/19 10/28/20 History triamterene 37.5 1 tab PO QAM #90 tab 06/20/19 10/28/20 History mg-hydrochlorothiazide 25 mg tablet zafirlukast 20 mg tablet 20 mg PO Q12H 10/02/19 10/28/20 History apixaban 5 mg tablet 5 mg PO BID #180 tab 06/03/20 10/28/20 History prednisone 0 mg PO UD 10/28/20 10/28/20 History Patient History Medical History A-fib Asthma Closed rib fracture Hypertension Surgical History No pertinent past surgical history Social History Smoking Status: Former smoker Smoking End Date: years ago; Hx Alcohol Use: No Hx Substance Use: No Preferred Language: Faroese Communication Ability: Effective Map Plotter Required: No Beliefs That Will Affect Care: None Current Living Situation: Family Other Information That Helps Us Care for You: No Feels Safe at Home: Yes Safety Concerns: Feels Safe At This Time Assistive Devices: None Review of Systems Review of Systems: 14 point review of systems completed and negative except as in HPI. Exam (Neuro) Physical Exam: General Exam: GEN: NAD, sitting in chair. HEENT: No conjunctival injection, no rhinorrhea. CV: RRR, no peripheral edema PULM: Nonlabored respirations on room air. Neuro Exam: MS: Awake and Alert. Oriented to person, place, and date. Speech fluent and appropriate without dysarthria or paraphasic errors. Language intact including naming, comprehension, repetition. Cognition and memory grossly intact. Attention intact. No neglect. CN: Visual perera full. No extinction to double simultaneous stimuli. Unable to visualize fundi on fundoscopic exam. PERRLA OU. EOMI without nystagmus. Facial sensation intact to LT. Facial muscles full and symmetric. Hearing intact to conversation. Uvula midline with symmetric palatal elevation. Shoulder shrug normal. Tongue midline. MOTOR: Normal bulk and tone. No pronator drift. BUE strength 5/5 at deltoids, biceps, triceps, wrist flexors and extensors, and hand grasp bilaterally. BLE strength 5/5 at iliopsoas, hamstrings, quadriceps, tibialis anterior, and gastrocnemius bilaterally. REFLEXES: 1+ at biceps, triceps, brachioradialis, trace patella and absent Achilles bilaterally. Flexor plantar responses bilaterally. SENSORY: Intact to LT without extinction to double simultaneous stimuli. Vibration and temperature intact throughout. COORDINATION: No dysmetria or ataxia on [id number] bilaterally. Normal Ishmael bilaterally. GAIT: deferred given physical status Results & Data ([facility]) Vital Signs (Past 12 Hours) Vital Signs Temp Pulse Pulse Resp BP Pulse Ox 10/29/20 11:13 36.9 C 67 20 101/63 93 10/29/20 07:50 36.6 C 82 20 120/75 95 10/29/20 07:21 86 10/29/20 03:19 36.9 C 75 18 133/67 93 PG Care Time/CCT Total # of Minutes Spent Total Time Spent with Patient: Total time spent is greater than 50% in coordination of care (as documented) at patient's floor/unit and/or counseling patient: Coding Level of Care Code 39272 Initial Inpt Care Lvl 3 Diagnoses Migraine with aura G43.109 Hypertension I10 On apixaban therapy Z79.01 Hyponatremia E87.1
[2020-10-29] MEDS ORDERED: STROKE PATIENT DISCHARGE STA (15:21)
--- NOTE | 2020-10-29 15:40 | Discharge Summary ---
Date of Service October 29, 2020 Admission HPI Per Admitting Provider Abbie Rob is an 85-year-old female who presents to the ER with headache, right eye vision changes and slurred speech. All symptoms have resolved on arrival to the ER. Initial symptoms started at 11 AM yesterday. New onset left-sided headache on her temporal area. No history of migraines or recurrent headaches and this is completely unusual for her. Severity 6-7/10 at worst, lasting for several hours. She took some Tylenol and slept for 5 to 6 hours and felt improved after this. Associated right eye blurring while reading during the time of this headache. She denies any vision loss, floaters, flashing lights. She reports any her right eye was affected as when she covered this eye her vision was normal. After she woke up in the evening her headache slowly came back and her daughter noted some slurring of her speech around 9:30 PM. She was making on the right words but not being able to think as fast and slurring words. No prior history of heart attack or stroke. Of note she has been on prednisone for 3 to 4 days for left knee pain. Unfortunately she does not know what dose she has been taking for this but reports taking it this morning. In the ER CT head, CTA head/neck were unremarkable. Leukocytosis noted suspect secondary to recent prednisone use. She denies any infective symptoms such as fevers, chills, cough, sore throat, sinus pain, shortness of breath, loss of taste or smell, dysuria, flank pain, abdominal pain, diarrhea, known COVID-19 exposure. She is also admitted to be hyponatremic on hydrochlorothiazide. She was referred to medicine for admission and ongoing management of stroke symptoms and hyponatremia. Principal Diagnosis migraine Discharge Exam Constitutional: well developed and well nourished; no acute distress Eyes: PERRL, conjunctivae normal, anicteric sclerae normal visual perera by confrontation and EOM intact bilaterally (Without diplopia or nystagmus) ENMT: external ear and nose normal, oropharynx normal Neck: trachea midline Respiratory: normal respiratory effort, lungs clear to auscultation Cardiovascular: Rate/Rhythm: regular rate and + irregularly irregular Heart Sounds: no murmur Vessels: no JVD Extremities: normal capillary refill; no calf tenderness and no pedal edema Gastrointestinal (Abdomen): normal bowel sounds, soft, nontender, no hepatosplenomegaly Musculoskeletal: no cyanosis or clubbing, extremities motor strength 5/5 Skin: no rashes, warm and dry Neurologic: moves all extremities and awake; no focal motor deficits and not confused hearing impairment (At baseline) Psychiatric: A+Ox3, euthymic affect Genitourinary: no CVA tenderness Discharge Data Allergies Allergy/AdvReac Type Severity Reaction Status Date / Time phenazopyridine AdvReac Unknown HEADACHE, Verified 10/28/20 13:10 VISUAL PROBLEMS Consultations 10/28/20 14:47 ED Decision to Admit Stat 10/28/20 19:15 Consult Case Management - Discharge Planning Routine Consult General Surgery Routine Consult Neurology Routine Procedures Performed Operation Date: 10/29/20 08:50 <No data on this case meets the specified criteria> Ordered Studies 10/28/20 12:38 CT angio head w con Stat CT angio neck with con Stat CT head/brain wo con Stat 10/28/20 15:58 MR brain wo con Urgent Hospital Course (1) Headache: Appreciate input from Neurology. Migraine with aura: Abbie Rob is an 85 yo woman w/ PMH of Afib on apixaban, HTN, h/o migraines, HLD and asthma who p/t [facility] with subacute onset of headache and visual changes. # Left sided headache a/w right eye visual aura: most c/w her h/o migraines. Unclear why it was triggered this week but she notes that cold weather has triggered her migraines in the past, which may have also been the trigger this time. No abnormality noted on MRI brain to explain symptoms. CRP and Plts WNL, ESR only mildly elevated (and is close to where she was several years ago when checked). Suspect recurrent migraine with aura. - would recommend that she use tylenol 1000mg or ibuprofen 600mg as needed for headaches in the future. Could also consider Ubrelvy/Nurtec if needed. - if headache become more frequent than twice per week for at least one month, recommend that she start magnesium 400mg daily - would complete her prednisone course as already directed by PCP for her arthritis. No need to have temporal artery biopsy at this time. # Prediabetes: - should work with PCP with diet/exercise vs starting metformin as she almost meets criteria for filemon diabetes (2) Blurred vision, right eye: GCA/stroke work-up as above. No longer present on exam. (3) Slurred speech: Stroke work-up as above. (4) Hypertension: Continue losartan 50 mg p.o. every morning Hold triamterene/hydrochlorothiazide due to hyponatremia (5) Hyponatremia: Acute on chronic suspect due to hydrochlorothiazide use. improved. will limit HCTZ and switch to low dose amlodipine to help control BP in PM. (6) A-fib: resume eliquis. Total Time Total Time Spent Total Time Spent (In Minutes): 32 Total Time Includes: Examination of the Patient, Discharge Planning and Medication Reconciliation Discharge Plan Discharge Items Patient Disposition: Home - Self-Care Reason For Visit: NEW ONSET HEADACHE, VISION BLURRING Discharge Diagnosis: Migraine Activity: Resume your previous activity Non-emergency contact: Primary Care Provider Call non-emergency contact if: you have any medication questions Follow-up/Referrals: Yovanny Joseph MD [Primary Care Provider] - Diet: Heart Healthy Addtl Attending Provider Instructions: - would recommend that she use tylenol 1000mg or ibuprofen 600mg as needed for headaches in the future. Could also consider Ubrelvy/Nurtec if needed. - if headache become more frequent than twice per week for at least one month, recommend that she start magnesium 400mg daily - would complete her prednisone course as already directed by PCP for her arthritis. No need to have temporal artery biopsy at this time. Pending Studies at Discharge: No Stand-Alone Forms: My [facility] [employer], Smoking Cessation Medications and DC Order Prescriptions: New amlodipine 2.5 mg tablet 2.5 mg PO PM Qty: 30 RF: 0 Continued simvastatin 10 mg tablet 10 mg PO HS RF: 0 latanoprost 0.005 % drops 1 drops OPB HS RF: 0 losartan 50 mg tablet 50 mg PO QAM Qty: 90 RF: 0 apixaban 5 mg tablet 5 mg PO BID Qty: 180 RF: 0 zafirlukast [Accolate] 20 mg tablet 20 mg PO Q12H RF: 0 prednisone 5 mg tablet 0 mg PO UD RF: 0 Discontinued triamterene-hydrochlorothiazid 37.5-25 mg tablet 1 tab PO QAM Qty: 90 RF: 0 Discharge Orders: Discharge Order (Routine); Ordered 10/29/20 Ordered By: Joe Welch/Other Patient Handouts: A1C Admission Data Admit Date/Time: 10/28/20 15:57 Attending Provider: Joe Linton Admit Provider: Luis Sebastian Primary Care Provider: Yovanny Joseph Other Providers: Luis Sebastian ; Bruno Mittal ; Altagracia Gleason Other Interventions: Discharge Summary Assessment (RN) Last Done: 10/29/20 15:01 Coding Level of Care Code 63804 OBS Care - Discharge Diagnoses Headache R51.9 Headache chronicity pattern: unspecified pattern Headache type: unspecified Intractability: not intractable Blurred vision, right eye H53.8 Slurred speech R47.81 Hypertension I10 Hyponatremia E87.1 A-fib I48.91 Atrial fibrillation type: unspecified
== END 2020-10-29 17:27 | disposition home or self-care (01) ==
LOC: 2N 11:11 → ED 11:11 → SUATTDRO 15:57 → 2N 17:57

== ENCOUNTER 2022-11-26 11:25 | Inpatient (IN) ==
--- NOTE | 2022-11-26 11:54 | XRay Report ---
XR chest 1V portable HISTORY: Shortness of breath. COMPARISON: 10/28/2020. FINDINGS: No pneumothorax. No pleural effusions. The heart remains enlarged. There is mild central pu lmonary vascular congestion without overt edema. This has progressed in the interval. No new focal jhonny ng consolidations to suggest a pneumonia. Scoliosis, unchanged. IMPRESSION: Cardiomegaly with mild congestive change. This has progressed in the interval. ACT 112: Negative or not required by law. Electronically signed by: Shahab Kim M.D. 11/26/2022 11:53 AM
[2022-11-26 12:01] LABS: Basophils # (auto) 0.02 K/uL (0-0.2); Basophils % (auto) 0.3 %; Eosinophils # (auto) 0.05 K/uL (0-0.50); Eosinophils % (auto) 0.8 %; Hemoglobin 14.4 g/dl (12.0-16.0); Immature Granulocytes # (auto) 0.01 K/uL (0.00-0.02); Immature Granulocytes % (auto) 0.2 %; Lymphocytes # (auto) 2.12 K/uL (1.2-3.4); Lymphocytes % (auto) 33.8 %; Monocytes % (auto) 9.6 %; Neutrophils # (auto) 3.47 K/uL (1.4-6.5); Neutrophils % (auto) 55.3 %; Platelet Count 197 K/uL (130-400); RDW Coefficient of Variation 12.3 % (11.5-14.5); RDW Standard Deviation 38.4 fL (36.4-46.3); Red Blood Count 4.65 M/uL (3.93-5.22); White Blood Count 6.27 K/ul (4.8-10.8)
--- NOTE | 2022-11-26 12:07 | Emergency Department Note ---
Impression & Plan Hyponatremia, A-fib, Asthma, RAMIREZ (dyspnea on exertion), Abnormal blood electrolyte level ED Provider Note NAME: NEGRA YOUSSEF AGE: 87 SEX: F : 1935 ARRIVES VIA: Walk-In INFORMANT: Patient, ED PROVIDER(S): Luis Enrique Puga MD CHIEF COMPLAINT: Shortness of breath MEDICAL DECISION MAKING: Patient did present due to concern for shortness of breath with productive cough. Blood work is obtained along with procalcitonin and blood cultures. The patient was ordered a dose of Rocephin and did have a viral swab completed. The patient was ordered Xopenex nebulizer treatments as well as IV steroids and IV magnesium The patient has normal white count H&H and platelet count. The patient does have significant hyponatremia 117. Is a change from priors the patient's most recent sodium was 131 on November 23. Patient has lower chloride and potassium. Magnesium low at 1.6. I did order urine and serum awesome's as well as urine electrolytes. Patient's Pro-Sony is not elevated. LFTs unremarkable and troponin is not elevated. COVID flu and RSV negative. I did [place] the on-call hospitalist Shea Jaffe PA-C and the patient was admitted by Dr. Goel. I did speak and convey the findings with the patient the patient's family were bedside. Chest x-ray shows cardiomegaly with mild congestive change. BNP pend ing at the time of admission. Patient's congestive change may be secondary to infectious etiology as the patient has had productive cough. Prior /Outside records reviewed: I did review the patient's most recent cardiology note from July 2022. The patient has a known history of A. fib for they have been asymptomatic that time and is on Eliquis. I did review an echo from June 2019 which showed the patient had normal LV size with hyperdynamic systolic function with EF greater than 70% without regional wall abnormalities. The patient does have severe left atrial dilation and mild to mo derate concentric LVH. Differential diagnosis: Reactive airway disease, pneumonia, pneumothorax, COPD, CHF, infections, cardiac ischemia, pulmonary embolism, musculoskeletal, gastrointestinal, as well as other pathologies. Diagnostics, as interpreted by me: ECG: A. fib, rate of 59, normal axis no ST elevations, Q waves anteriorly Cardiac monitoring: An order was placed for continuous cardiac monitoring. The monitor shows a rate of 65 with irregularly irregular rhythm. Patient was placed on pulse oximetry Medical decision rules: None Imaging studies: See below HPI: Patient presents due to concern for shortness of breath and associated cough. The patient shortness of breath is gotten progressively worse over the last 10 days. The patient did receive a prescription of Mucinex from her primary care doctor Dr. Subramanian. This has not proved her symptoms. The patient has had dark discolored yellow sputum. Remote history of smoking greater than 40 years ago. The patient has been using her inhalers without significant improvement in symptoms. The patient denies any leg swelling. Patient does complain of RAMIREZ and occasional orthopnea. Patient denies any increase in salt in the diet. Patient does have a known history of A. fib and is taking her medications as prescribed. The patient does take hydrochlorothiazide as a diuretic and states that she is compliant with her medications. Patient states that she did have an episode of right-sided neck discomfort where she was slightly nauseous and may been a little clammy but no diaphoresis and no chest pain. This lasted maybe all of 5 seconds. Patient states that she was seated at the time of this occurred. Patient denies any exertional exacerbating remitting factors. PAST MEDICAL HISTORY: See Below PAST SURGICAL HISTORY: See Below SOCIAL HISTORY: See Below HOME MEDICATIONS: See Below ALLERGIES: See Below VITALS: See Below PHYSICAL EXAMINATION: GENERAL: NAD, wearing a mask, non-toxic. Wearing glasses. EYE EXAM: Normal conjunctiva. PERRL, no anisocoria and EOM's grossly intact w/o pain. NECK: Supple, no nuchal rigidity, no adenopathy, non-tender. No signs of meningismus. FROM of the neck with good chin to chest and neck extension. No stridor. LUNGS: Prolonged expiratory phase with associated expiratory wheezes, scant expiratory wheezes normal chest wall mechanics. HEART: Irregularly irregular, no MRG. ABDOMEN: Abdomen soft, non-tender, normo-active bowel sounds, no masses, no rebound or guarding. BACK: No CVA TTP. SKIN: No rashes and no bruising. UPPER EXTREMITIES: Upper extremities are grossly normal. LOWER EXTREMITIES: Grossly normal, no edema. No calf pain, negative Homans' sign bilaterally. NEURO EXAM: A&O x3, cranial nerves II-XII grossly intact, normal speech, moves all 4 extremities. Past Med/Surg History Medical History A-fib Asthma Closed rib fracture Hypertension Prediabetes Surgical History No pertinent past surgical history Family History Grandfather (Maternal) Stroke Heart disease Hypertension Mother Hypertension Heart disease Diabetes Father Heart disease Hypertension Sister Diabetes Denies family history of Ovarian cancer Prostate cancer Myocardial infarction Breast cancer Lung cancer Colorectal cancer Social History Smoking Status: Never smoker Tobacco Type: Cigarettes Age Started Using Tobacco: 18; Age Quit Using Tobacco: 49; packs per day: 0.10; Second Hand Exposure: No; Hx Alcohol Use: No Hx Substance Use: No Preferred Language: Mohawk Communication Ability: Effective Visual Impairment: Limited Hearing Ability: Use of Hearing Aid Special Education Assistant Required: No Beliefs That Will Affect Care: None marital status: / Current Living Situation: Family Feels Safe at Home: Yes Childhood Exposure to Second-Hand Smoke: Yes (parents) Dental Care, Regularly: Yes Seatbelt Use: always Sunscreen Use: Yes Assistive Devices: None, Cane, Glasses and Hearing Aid - Bilateral Allergies Allergies Allergy/AdvReac Type Severity Reaction Status Date / Time phenazopyridine AdvReac Unknown HEADACHE, Verified 08/17/22 15:30 VISUAL PROBLEMS Home Meds Home Medications Medication Instructions Recorded Confirmed latanoprost 0.005 % eye drops 1 drops OPB 06/20/19 08/17/22 simvastatin 10 mg tablet 10 mg PO 06/20/19 08/17/22 Previous Rx's Medication Instructions Recorded losartan 50 mg tablet 50 mg PO QAM #90 tabs 06/19/22 triamterene 37.5 1 tab PO DAILY #90 tabs 07/05/22 mg-hydrochlorothiazide 25 mg tablet zafirlukast 20 mg tablet (Accolate) 20 mg PO Q12H #180 tabs 07/14/22 apixaban 5 mg tablet 5 mg PO BID #180 tabs 07/25/22 budesonide-formoterol HFA 160 2 puff inhalation BID #10.2 grams 09/27/22 mcg-4.5 mcg/actuation aerosol inhaler (Symbicort) Results & Data (ED) Vital Signs Vital Signs - 24 hr 11/26/22 11:28 11/26/22 11:34 11/26/22 11:34 Temperature 36.5 C Temperature Source Skin Pulse Rate 64 Pulse Rate [Right Finger] Pulse Rhythm Regular Pulse Rhythm [Right Finger] Pulse Strength Normal Respiratory Rate 20 Respiratory Effort / Characteristics Non-Labored Spontaneous Non-Labored Spontaneous Respiratory Depth Normal Normal Respiratory Pattern Regular Regular Blood Pressure 189/93 H Blood Pressure [Right Arm] Blood Pressure Mean 125 Blood Pressure Mean [Right Arm] Blood Pressure Position [Right Arm] Pulse Oximetry 90 Oxygen Delivery Method Room Air Room Air Room Air Sepsis Recent Fever Within 48 Hours No Sepsis New/Unexplained Change in Mental Status N/A Sepsis Action Taken by Nursing No Action Required 11/26/22 12:13 11/26/22 12:51 11/26/22 13:09 Temperature Temperature Source Pulse Rate Pulse Rate [Right Finger] 83 Pulse Rhythm Pulse Rhythm [Right Finger] Regular Pulse Strength Respiratory Rate 18 18 Respiratory Effort / Characteristics Non-Labored Spontaneous Non-Labored Spontaneous Respiratory Depth Normal Respiratory Pattern Regular Blood Pressure Blood Pressure [Right Arm] 171/74 H Blood Pressure Mean Blood Pressure Mean [Right Arm] 106 Blood Pressure Position [Right Arm] Lying Pulse Oximetry 95 96 Oxygen Delivery Method Room Air Room Air Sepsis Recent Fever Within 48 Hours Sepsis New/Unexplained Change in Mental Status Sepsis Action Taken by Nursing 11/26/22 13:09 Temperature Temperature Source Pulse Rate 83 Pulse Rate [Right Finger] Pulse Rhythm Regular Pulse Rhythm [Right Finger] Pulse Strength Respiratory Rate 18 Respiratory Effort / Characteristics Respiratory Depth Respiratory Pattern Blood Pressure Blood Pressure [Right Arm] Blood Pressure Mean Blood Pressure Mean [Right Arm] Blood Pressure Position [Right Arm] Pulse Oximetry 97 Oxygen Delivery Method Room Air Sepsis Recent Fever Within 48 Hours Sepsis New/Unexplained Change in Mental Status Sepsis Action Taken by [facility] Medications Current Medication List: was personally reviewed by me Laboratory Data Attestation: I reviewed the patient's lab results. 11/26/22 11:50 11/26/22 11:50 Lab Results 11/26/22 11/26/22 11/26/22 Range/Units 11:50 11:50 11:50 WBC 6.27 (4.8-10.8) K/ul RBC 4.65 (3.93-5.22) M/uL Hgb 14.4 (12.0-16.0) g/dl Hct 40.0 (34.1-44.9) % MCV 86.0 (80.0-100.0) fL MCH 31.0 (25.0-34.0) pg MCHC 36.0 (32.0-36.0) g/dL RDW Std Deviation 38.4 (36.4-46.3) fL RDW Coeff of Dia 12.3 (11.5-14.5) % Plt Count 197 (130-400) K/uL MPV 10.0 (9.4-12.3) fL Immature Gran % (Auto) 0.2 % Neut % (Auto) 55.3 % Lymph % (Auto) 33.8 % [place] % (Auto) 9.6 % Eos % (Auto) 0.8 % Baso % (Auto) 0.3 % Neut # (Auto) 3.47 (1.4-6.5) K/uL Lymph # (Auto) 2.12 (1.2-3.4) K/uL [place] # (Auto) 0.60 (0.24-0.82) K/uL Eos # (Auto) 0.05 (0-0.50) K/uL Baso # (Auto) 0.02 (0-0.2) K/uL Immature Gran # (Auto) 0.01 (0.00-0.02) K/uL PT 11.4 (9.0-12.0) Seconds INR 1.1 (0.9-1.1) APTT 35.3 H (21.0-31.0) Seconds PTT Ratio 1.3 Sodium 117 L* (136-145) mmol/L Potassium 3.4 L (3.5-5.1) mmol/L Chloride 79 L (98-107) mmol/L Carbon Dioxide 29 (21-32) mmol/L Anion Gap 9 (3-11) BUN 11 (6-23) mg/dl Creatinine 0.61 (0.6-1.2) mg/dl Est Cr Clr Drug Dosing 64.3 ml/min Est GFR ( Amer) 93.8 ml/min Est GFR (Non-Af Amer) 80.9 ml/min BUN/Creatinine Ratio 18.0 (10-20) Glucose 119 H (70-99(Fasting)) mg/dl Osmolality (280-300) mOsm/kg Calcium 8.7 (8.5-10.1) mg/dl Magnesium 1.6 L (1.7-2.4) mg/dl Total Bilirubin 0.7 (0.2-1.0) mg/dl AST 20 (13-39) U/L ALT 16 (7-52) U/L Alkaline Phosphatase 53 (34-104) U/L Troponin I High Sens 7.4 (0-14) pg/ml Total Protein 7.4 (6.0-8.3) gm/dl Albumin 3.7 (3.4-5.0) gm/dl Globulin 3.7 (2.5-4.0) gm/dl Albumin/Globulin Ratio 1.0 (0.9-2) Procalcitonin (0-0.5) ng/ml SARS-CoV-2 (PCR) (Negative) Influenza Type A (PCR) (Neg) Influenza Type B (PCR) (Neg) RSV (RT-PCR) (Neg) 11/26/22 11/26/22 11/26/22 Range/Units 11:50 11:50 11:50 WBC (4.8-10.8) K/ul RBC (3.93-5.22) M/uL Hgb (12.0-16.0) g/dl Hct (34.1-44.9) % MCV (80.0-100.0) fL MCH (25.0-34.0) pg MCHC (32.0-36.0) g/dL RDW Std Deviation (36.4-46.3) fL RDW Coeff of Dia (11.5-14.5) % Plt Count (130-400) K/uL MPV (9.4-12.3) fL Immature Gran % (Auto) % Neut % (Auto) % Lymph % (Auto) % [place] % (Auto) % Eos % (Auto) % Baso % (Auto) % Neut # (Auto) (1.4-6.5) K/uL Lymph # (Auto) (1.2-3.4) K/uL [place] # (Auto) (0.24-0.82) K/uL Eos # (Auto) (0-0.50) K/uL Baso # (Auto) (0-0.2) K/uL Immature Gran # (Auto) (0.00-0.02) K/uL PT (9.0-12.0) Seconds INR (0.9-1.1) APTT (21.0-31.0) Seconds PTT Ratio Sodium (136-145) mmol/L Potassium (3.5-5.1) mmol/L Chloride (98-107) mmol/L Carbon Dioxide (21-32) mmol/L Anion Gap (3-11) BUN (6-23) mg/dl Creatinine (0.6-1.2) mg/dl Est Cr Clr Drug Dosing ml/min Est GFR ( Amer) ml/min Est GFR (Non-Af Amer) ml/min BUN/Creatinine Ratio (10-20) Glucose (70-99(Fasting)) mg/dl Osmolality 242 L (280-300) mOsm/kg Calcium (8.5-10.1) mg/dl Magnesium (1.7-2.4) mg/dl Total Bilirubin (0.2-1.0) mg/dl AST (13-39) U/L ALT (7-52) U/L Alkaline Phosphatase (34-104) U/L Troponin I High Sens (0-14) pg/ml Total Protein (6.0-8.3) gm/dl Albumin (3.4-5.0) gm/dl Globulin (2.5-4.0) gm/dl Albumin/Globulin Ratio (0.9-2) Procalcitonin < 0.05 (0-0.5) ng/ml SARS-CoV-2 (PCR) NEGATIVE (Negative) Influenza Type A (PCR) Negative (Neg) Influenza Type B (PCR) Negative (Neg) RSV (RT-PCR) Negative (Neg) Administered Medications Discontinued Medications Magnesium Sulfate/Dextrose (Magnesium Sulfate / D5w) 1 gm in 100 mls @ 100 mls/hr IV NOW STA Stop: 11/26/22 13:22 Last Admin: 11/26/22 12:31 Dose: 100 mls/hr Documented By: JOIE Levalbuterol HCl (Levalbuterol Hcl 1.25 Mg/3 Ml Neb) 2.5 mg NEB NOW STA; Protocol Stop: 11/26/22 12:23 Last Admin: 11/26/22 12:32 Dose: 2.5 mg Documented By: JOIE Methylprednisolone (Methylprednisolone 125 Mg/2 Ml Vial) 60 mg IV NOW STA Stop: 11/26/22 12:23 Last Admin: 11/26/22 12:58 Dose: 60 mg Documented By: JOIE Imaging Data Radiologist's Impression: Chest X-Ray 11/26/22 11:35 XR chest 1V portable HISTORY: Shortness of breath. COMPARISON: 10/28/2020. FINDINGS: No pneumothorax. No pleural effusions. The heart remains enlarged. There is mild central pulmonary vascular congestion without overt edema. This has progressed in the interval. No new focal lung consolidations to suggest a pneumonia. Scoliosis, unchanged. IMPRESSION: Cardiomegaly with mild congestive change. This has progressed in the interval. ACT 112: Negative or not required by law. Electronically signed by: Shahab Kim M.D. 11/26/2022 11:53 AM Discharge Plan Visit Data Chief Complaint: Shortness of Breath/Dyspnea Stated Complaint: SOB ED Provider: Luis Enrique Puga Discharge Problem: Hyponatremia, A-fib, Asthma, RAMIREZ (dyspnea on exertion), Abnormal blood electrolyte level Forms Stand Alone Forms: [email or web address] Prescriptions Prescriptions: No Action losartan 50 mg tablet 50 mg PO QAM Qty: 90 3RF triamterene-hydrochlorothiazid 37.5-25 mg tablet 1 tab PO DAILY Qty: 90 3RF zafirlukast [Accolate] 20 mg tablet 20 mg PO Q12H Qty: 180 3RF apixaban 5 mg tablet 5 mg PO BID Qty: 180 1RF budesonide-formoterol [Symbicort] 160-4.5 mcg/actuation HFA aerosol inhaler 2 puff inhalation BID Qty: 10.2 2RF simvastatin 10 mg tablet 10 mg PO HS latanoprost 0.005 % drops 1 drops OPB HS Referrals Referrals: Zaina Waddell MD [Primary Care Provider] -
[2022-11-26 12:16] LABS: INR 1.1 (0.9-1.1); Partial Thromboplastin Ratio 1.3; Partial Thromboplastin Time 35.3 Seconds (21.0-31.0); Prothrombin Time 11.4 Seconds (9.0-12.0)
[2022-11-26] MEDS ORDERED: methylPREDNISolone 125 MG/2 ML VIAL IV STA (12:22)
[2022-11-26] MEDS ORDERED: cefTRIAXone SODIUM 2,000 MG/70 ML BAG IV STA (12:22)
[2022-11-26] MEDS ORDERED: LEVALBUTEROL HCL 1.25 MG/3 ML NEB NEB STA (12:22)
[2022-11-26] MEDS ORDERED: MAGNESIUM SULFATE / D5W 1 GM/100 ML BAG IV STA (12:23)
[2022-11-26 12:28] LABS: Troponin I High Sensitivity 7.4 pg/ml (0-14)
[2022-11-26 12:37] LABS: Albumin Level 3.7 gm/dl (3.4-5.0); Bilirubin,Total 0.7 mg/dl (0.2-1.0); Calcium 8.7 mg/dl (8.5-10.1); Creatinine Clr Calc Pharmacy 64.3 ml/min; Est GFR (African American) 93.8 ml/min; Est GFR (Non-African American) 80.9 ml/min; Globulin 3.7 gm/dl (2.5-4.0); Influenza A virus by PCR Negative (Neg); Influenza B virus by PCR Negative (Neg); Magnesium 1.6 mg/dl (1.7-2.4); Potassium 3.4 mmol/L (3.5-5.1); RSV by PCR Negative (Neg); SARS CoV2 RNA(COVID-19) Ceph NEGATIVE (Negative); Total Protein 7.4 gm/dl (6.0-8.3)
--- NOTE | 2022-11-26 13:27 | History & Physical Report ---
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 She has been trying to increase her water intake due to her URI. - Case discussed with nephrology. Recommending 100 cc bolus of hypertonic saline with 1 L free water fluid restriction. - Recheck BMP every 4 hours, goal increase of 6 mmol over 24 hours, or Na 123 by tomorrow afternoon. - Repeat BMP 1600: Sodium 118, potassium lower now at 2.8. We will continue to follow BMP closely, replete potassium as necessary. (2) Bronchitis: Plan: - 10 days of SOB, productive cough w/ yellow sputum, and fatigue. - Without hypoxia, evidence of pneumonia on CXR, Pro-Sony <0.05, suspect viral bronchitis as cause. - Manage with supportive care, DuoNebs, Tylenol for fever or body aches, Mucinex. (3) Hypertension: Plan: - HCTZ, losartan on hold due to hyponatremia. (4) A-fib: Plan: - Continue Eliquis. - Has not required rate control agents previously. (5) Asthma: Plan: - ? COPD overlap. Has home inhalers, zafirlukast every 12 hours. - Management of bronchitis as above. Plan - Admit to PCU. - SCDs ordered and encouraged, continue Eliquis for VTE px. - Full Code. History of Present Illness Chief Complaint: shortness of breath, cough x 1 week Primary Care Provider: Zaina Waddell MD Abbie Rob is an 87-year-old female with a past medical history significant for asthma/COPD, afib on Eliquis, hypertension, and hyperlipidemia is presenting today with complaints of shortness of breath and cough. This started 10 days ago, she did call her PCP who advised her to take Mucinex twice daily, also tested her for flu and COVID which were negative. For the past 2 or 3 days, patient has been taking Mucinex and also drinking about 100-120 ounces of water daily with minimal food intake as she has not had an appetite. She continues to feel short of breath with minimal ambulation, and is now weak, nauseous, and per her daughter seems more confused over the past day or so. She has not had any fever chills or body aches. On presentation she is hypertensive 189/93, otherwise vital signs within normal limits, she is afebrile. Labs notable for sodium of 117 with glucose fairly normal at 119. Potassium, chloride, magnesium all slightly low at 3.4, 79, 1.6 respectively. Procalcitonin is <0.05. Troponin 7.4. Negative for COVID/flu/RSV. Urine, with urine osmolality, urine sodium, urine potassium, urine chloride, and Legionella antigen all pending. CXR shows cardiomegaly with mild congestive change. No focal lung consolidation suggestive of pneumonia, no pneumothorax or pleural effusions. Allergies Allergy/AdvReac Type Severity Reaction Status Date / Time phenazopyridine AdvReac Unknown HEADACHE, Verified 08/17/22 15:30 VISUAL PROBLEMS Home Medications Medication Instructions Recorded Confirmed Type latanoprost 0.005 % eye drops 1 drops OPB HS 06/20/19 08/17/22 History simvastatin 10 mg tablet 10 mg PO HS 06/20/19 08/17/22 History losartan 50 mg tablet 50 mg PO QAM #90 tabs 06/19/22 08/17/22 Rx triamterene 37.5 1 tab PO DAILY #90 tabs 07/05/22 08/17/22 Rx mg-hydrochlorothiazide 25 mg tablet zafirlukast 20 mg tablet (Accolate) 20 mg PO Q12H #180 tabs 07/14/22 08/17/22 Rx apixaban 5 mg tablet 5 mg PO BID #180 tabs 07/25/22 08/17/22 Rx budesonide-formoterol HFA 160 2 puff inhalation BID #10.2 grams 09/27/22 Rx mcg-4.5 mcg/actuation aerosol inhaler (Symbicort) Past Med/Surg History Medical History A-fib Asthma Closed rib fracture Hypertension Prediabetes Surgical History No pertinent past surgical history Family History Grandfather (Maternal) Stroke Heart disease Hypertension Mother Hypertension Heart disease Diabetes Father Heart disease Hypertension Sister Diabetes Denies family history of Ovarian cancer Prostate cancer Myocardial infarction Breast cancer Lung cancer Colorectal cancer Social History Smoking Status: Never smoker Tobacco Type: Cigarettes Age Started Using Tobacco: 18; Age Quit Using Tobacco: 49; packs per day: 0.10; Second Hand Exposure: No; Do You Dip or Chew Tobacco: No; Tobacco Cessation Education Requested by Patient: No Hx Alcohol Use: No Hx Substance Use: No Preferred Language: Turkmen Communication Ability: Effective Visual Impairment: Limited Hearing Ability: Use of Hearing Aid Sprinkler Fitter Required: No Beliefs That Will Affect Care: None marital status: / Current Living Situation: Alone Other Information That Helps Us Care for You: No Feels Safe at Home: Yes Safety Concerns: Feels Safe At This Time Childhood Exposure to Second-Hand Smoke: Yes (parents) Dental Care, Regularly: Yes Seatbelt Use: always Sunscreen Use: Yes Assistive Devices: None Review of Systems Review of Systems: Constitutional: weakness x 10 days, progressively worse over last 3No fever/chills, weakness, fatigue, myalgias, anorexia, night sweats Eyes: No diplopia, no worsening or blurred vision ENT: normal hearing, no trouble swallowing Respiratory: Shortness of breath with minimal exertion, cough with yellow sputum production x10 days Cardiovascular: No chest pain, tightness or palpitations Abdomen: nausea, no vomiting or abdominal pain, 1 episode of diarrhea yesterday ; no constipation : Denies dysuria, hematuria, increased urgency/frequency, urinary retention Musculoskeletal: No joint pain, calf pain, swelling Neurologic: No weakness, numbness/tingling, or balance problems Psychiatric: No anxiety or depression Skin: No rash or itch Physical Exam Physical Exam: General: awake, alert, no apparent distress, tremulous Head: Normocephalic, atraumatic ENT: PERRL, EOMI, no pharyngeal exudate, mucous membranes moist Chest: On room air, with wheezing throughout Cardiac: Regular rate and rhythm, no murmur, no JVD, normal peripheral pulses, good capillary refill Abdominal: NABS x 4 quadrants, soft, nontender to palpation, no rebound, guarding or tenderness Extremities: Normal inspection, no peripheral edema or erythema, calfs nontender to palpation Psych: Normal mood and affect Neuro: AAO x 3, strength intact bilaterally and rated 5/5, no motor deficits, speech is clear, no peripheral sensory deficits Skin: no rash or erythema Results & Data Results & Data ([facility]) Vital Signs (Past 12 Hours) Vital Signs Temp Pulse Pulse Resp BP BP Pulse Ox 11/26/22 13:09 83 18 97 11/26/22 13:09 83 18 171/74 H 96 11/26/22 12:51 18 11/26/22 12:13 95 11/26/22 11:34 11/26/22 11:34 11/26/22 11:28 36.5 C 64 20 189/93 H 90 O2 Del Method 11/26/22 13:09 Room Air 11/26/22 13:09 Room Air 11/26/22 12:51 11/26/22 12:13 Room Air 11/26/22 11:34 Room Air 11/26/22 11:34 Room Air 11/26/22 11:28 Room Air Laboratory Results Abnormal lab results 11/26/22 11/26/22 11/26/22 Range/Units 11:50 11:50 11:50 APTT 35.3 H (21.0-31.0) Seconds Sodium 117 L* (136-145) mmol/L Potassium 3.4 L (3.5-5.1) mmol/L Chloride 79 L (98-107) mmol/L Glucose 119 H (70-99(Fasting)) mg/dl Osmolality 242 L (280-300) mOsm/kg Magnesium 1.6 L (1.7-2.4) mg/dl Urine Osmolality (500-800) mOsm/kg 11/26/22 Range/Units 11:55 APTT (21.0-31.0) Seconds Sodium (136-145) mmol/L Potassium (3.5-5.1) mmol/L Chloride (98-107) mmol/L Glucose (70-99(Fasting)) mg/dl Osmolality (280-300) mOsm/kg Magnesium (1.7-2.4) mg/dl Urine Osmolality 368 L (500-800) mOsm/kg Diagnostic Findings Chest X-Ray 11/26/22 11:35 XR chest 1V portable HISTORY: Shortness of breath. COMPARISON: 10/28/2020. FINDINGS: No pneumothorax. No pleural effusions. The heart remains enlarged. There is mild central pulmonary vascular congestion without overt edema. This has progressed in the interval. No new focal lung consolidations to suggest a pneumonia. Scoliosis, unchanged. IMPRESSION: Cardiomegaly with mild congestive change. This has progressed in the interval. ACT 112: Negative or not required by law. Electronically signed by: Shahab Kim M.D. 11/26/2022 11:53 AM ECG Additional Comments: Atrial fibrillation with slow ventricular response Anteroseptal infarct (cited on or before 10-OCT-2011) Abnormal ECG When compared with ECG of 28-OCT-2020 11:38, Questionable change in initial forces of Anterior leads Code Status & VTE Plan Code Status Full Code. Supervising Physician Co-Signing Physician Notes Patient seen and examined, chart reviewed, case discussed with Shea Jaffe PA-C and I agree with the assessment and plan as above except as otherwise noted Labs and images reviewed Pt is an 87-year-old female past medical history of/COPD, A. fib on Eliquis, hyp ertension, hyperlipidemia who has had shortness of breath and cough for 10 days. She was taking Mucinex twice daily for this as an outpatient, and per her understanding of the instructions for Mucinex was drinking around 120 ounces of water per day with minimal p.o. intake. She was found to have hyponatremia of 117 with low serum and urine awesome's admission. Patient reports that he has been weak and has increased nausea and per daughter some confusion in the last day. At bedside she is alert and oriented to name, place, and year and answers questions appropriately. She reports she thought that she was supposed to take a lot of water with her Mucinex. Is slightly tangential, otherwise appropriate. Denies urinary symptoms, endorses that she has continued to have a cough without sputum production and some mild shortness of breath. XR does not show evidence of bacterial/consolidative pneumonia. Given concurrent hyponatremia will obtain Legionella testing, although suspect this is likely from polydipsia. Given symptomatic hyponatremia with some weakness and confusion we will give 100 cc hypertonic saline, fluid restrict, and trend sodium. Urine electrolytes pending, DDx does include multifactorial SIADH. Agree with management above. BMP every 4 hours. PG Care Time/CCT Total # of Minutes Spent Total Time Spent with Patient: Total time spent is greater than 50% in coordination of care (as documented) at patient's floor/unit and/or counseling patient: Coding Level of Care Code 96973 INT INP/OBS CARE 3/75MIN Diagnoses Hyponatremia E87.1 Bronchitis J40 Hypertension I10 Hypertension type: primary hypertension A-fib I48.21 Atrial fibrillation type: permanent Asthma J45.909 (1) A-fib Atrial fibrillation type: permanent Qualified Code(s): I48.21 - Permanent atrial fibrillation (2) Hypertension Hypertension type: primary hypertension Qualified Code(s): I10 - Essential (primary) hypertension
[2022-11-26] MEDS ORDERED: STAT IV STA (14:15)
[2022-11-26] MEDS ORDERED: SODIUM CHLORIDE 3 % 100 ML IV ONE (14:15)
[2022-11-26] MEDS ORDERED: ONDANSETRON INJ 2 MG/ML 2 ML VIAL IV PRN (15:57)
[2022-11-26] MEDS ORDERED: ALUMINUM/MAGNESIUM SUSP 30 ML UDC PO PRN (15:57)
[2022-11-26] MEDS ORDERED: POLYETHYLENE (MIRALAX) 17 GM PACK PO PRN (15:57)
[2022-11-26] MEDS ORDERED: ALBUT/IPRATROP 3MG/0.5MG NEB 3 ML VIAL NEB PRN (15:57)
[2022-11-26 16:22] LABS: BUN Creatinine Ratio 17.5 (10-20); Calcium 8.3 mg/dl (8.5-10.1); Creatinine Clr Calc Pharmacy 68.8 ml/min; Est GFR (African American) 95.9 ml/min; Est GFR (Non-African American) 82.8 ml/min; Potassium 2.8 mmol/L (3.5-5.1)
[2022-11-26] MEDS ORDERED: POTASSIUM CHLORIDE CRTAB 20 MEQ TABCR PO STA (16:23)
[2022-11-26] MEDS: BENZONATATE 100 MG CAPSULE PO SCH ×2 (17:10→22:40)
[2022-11-26] MEDS: ALBUT/IPRATROP 3MG/0.5MG NEB 3 ML VIAL INH SCH (19:26)
[2022-11-26 21:09] LABS: BUN Creatinine Ratio 14.9 (10-20); Calcium 8.4 mg/dl (8.5-10.1); Est GFR (African American) 83.8 ml/min; Est GFR (Non-African American) 72.3 ml/min; Potassium 3.2 mmol/L (3.5-5.1)
--- NOTE | 2022-11-26 22:13 | Electrocardiogram Report ---
Test Reason : Blood Pressure : / mmHG Vent. Rate : 059 BPM Atrial Rate : 048 BPM P-R Int : 000 ms QRS Dur : 100 ms QT Int : 430 ms P-R-T Axes : 000 -19 086 degrees QTc Int : 425 ms Atrial fibrillation with slow ventricular response Anteroseptal infarct (cited on or before 10-OCT-2011) Abnormal ECG When compared with ECG of 28-OCT-2020 11:38, No significant change Confirmed by Akash Mcguire ([id number]) on 11/26/2022 10:13:14 PM Referred By: REFERRED SELF Confirmed By:Akash Mcguire
[2022-11-26] MEDS: SIMVASTATIN 10 MG TAB PO SCH (22:40)
[2022-11-26] MEDS: POTASSIUM CHLORIDE CRTAB 20 MEQ TABCR PO SCH (22:40)
[2022-11-26] MEDS: LATANOPROST 0.005% OP SOLN 2.5 ML BTL OPB SCH (22:40)
[2022-11-26] MEDS: APIXABAN 5 MG TABLET PO SCH (22:40)
[2022-11-27 01:33] LABS: BUN Creatinine Ratio 18.3 (10-20); Calcium 8.3 mg/dl (8.5-10.1); Creatinine Clr Calc Pharmacy 65.4 ml/min; Est GFR (African American) 94.3 ml/min; Est GFR (Non-African American) 81.4 ml/min; Potassium 3.4 mmol/L (3.5-5.1)
[2022-11-27] MEDS: ALBUT/IPRATROP 3MG/0.5MG NEB 3 ML VIAL INH SCH ×4 (01:54→19:15)
[2022-11-27] MEDS: ACETAMINOPHEN 325 MG TAB PO PRN ×2 (05:22→20:11)
[2022-11-27 06:21] LABS: Basophils # (auto) 0.01 K/uL (0-0.2); Basophils % (auto) 0.2 %; Hematocrit (blood only) 37.7 % (34.1-44.9); Immature Granulocytes # (auto) 0.02 K/uL (0.00-0.02); Immature Granulocytes % (auto) 0.4 %; Lymphocytes # (auto) 1.17 K/uL (1.2-3.4); Lymphocytes % (auto) 20.6 %; Mean Corpuscular Hemoglobin 30.6 pg (25.0-34.0); Mean Corpuscular Hgb Conc 37.1 g/dL (32.0-36.0); Mean Corpuscular Volume 82.3 fL (80.0-100.0); Mean Platelet Volume 9.8 fL (9.4-12.3); Monocytes # (auto) 0.49 K/uL (0.24-0.82); Monocytes % (auto) 8.6 %; Neutrophils # (auto) 3.98 K/uL (1.4-6.5); Neutrophils % (auto) 70.2 %; Platelet Count 219 K/uL (130-400); RDW Standard Deviation 36.3 fL (36.4-46.3); Red Blood Count 4.58 M/uL (3.93-5.22); White Blood Count 5.67 K/ul (4.8-10.8)
[2022-11-27 07:02] LABS: BUN Creatinine Ratio 20.3 (10-20); Calcium 8.4 mg/dl (8.5-10.1); Creatinine Clr Calc Pharmacy 67.8 ml/min; Est GFR (African American) 94.8 ml/min; Est GFR (Non-African American) 81.8 ml/min; Magnesium 1.6 mg/dl (1.7-2.4); Potassium 3.4 mmol/L (3.5-5.1)
[2022-11-27] MEDS: POTASSIUM CHLORIDE CRTAB 20 MEQ TABCR PO SCH ×3 (08:36→20:11)
[2022-11-27] MEDS: APIXABAN 5 MG TABLET PO SCH ×2 (08:36→20:12)
[2022-11-27] MEDS: FLUTICASONE/VILANTEROL 200/25MCG 14 PUFFS/INHALER INH SCH (08:36)
[2022-11-27] MEDS: BENZONATATE 100 MG CAPSULE PO SCH ×3 (08:39→20:12)
[2022-11-27 10:44] LABS: BUN Creatinine Ratio 15.6 (10-20); Calcium 8.9 mg/dl (8.5-10.1); Creatinine Clr Calc Pharmacy 44.5 ml/min; Est GFR (African American) 66.2 ml/min; Est GFR (Non-African American) 57.1 ml/min; Potassium 3.7 mmol/L (3.5-5.1)
--- NOTE | 2022-11-27 14:49 | Hospitalist Progress Note ---
Date of Service November 27, 2022 Assessment & Plan (1) Hyponatremia: Plan: Hypoosmolar hyponatremia consistent with SIADH or polydipsia. In her case it appears to be due to polydipsia. She is now on fluid restriction. Daily labs ordered. (2) Bronchitis: Plan: Appears to be viral. Continue nebulizer treatments. Less wheezing. No sign of pneumonia on chest x-ray. (3) Hypertension: Plan: losartan on hold due to hyponatremia. Currently acceptable (4) A-fib: Plan: Controlled rate. Continue Eliquis. (5) Asthma: Plan: - ? COPD overlap. Uses home inhalers, zafirlukast every 12 hours. Management of bronchitis as above. Plan OT and PT assessments ordered. This will determine eventual disposition Admission and Anticipated Discharge Date Admission Date: November 26, 2022 Subjective Alert and oriented. No distress. Sodium remains low at 118. She remains on fluid restriction. Potassium is also mildly low at 3.4 and she is receiving oral potassium supplementation. Parenteral magnesium replacement ordered. OT and PT evaluations ordered. Blood cultures done on admission are negative to date Review of Systems Review of Systems: Constitutional-no fever or chills ENT-no blurred vision, no double vision, no epistaxis, no sore throat Respiratory-no cough, no wheezing, no shortness of breath Cardiac-no palpitations, no chest pain, no syncope GI-no nausea, vomiting, diarrhea, melena, hematochezia -no urinary retention, no urinary incontinence, no dysuria, no hematuria Musculoskeletal-no joint pain, no muscle tenderness Skin-no bruising, no rashes, no pruritus Neuro-no paresthesia. Generalized weakness Psych-no depression, no anxiety Physical Exam Physical Exam: General-alert and oriented x3, no fevers, no chills HEENT-head atraumatic and normocephalic, pupils equal and reactive to light, extraocular muscles intact Neck-no lymphadenopathy or thyromegaly, trachea midline Chest-clear to auscultation percussion. No rales wheezing or rhonchi Cardiac-regular rate and rhythm, normal S1 and S2 Abdomen-normal bowel sounds, nontender, no hepatosplenomegaly Extremities-no cyanosis, clubbing, or edema Neuro-cranial nerves II through XII intact, motor and sensory function within normal limits, strength symmetrical with generalized weakness , no focal deficits Psych-normal affect, normal mood Results & Data Results & Data ([facility]) Vital Signs (Past 12 Hours) Vital Signs Temp Pulse Pulse Resp BP Pulse Ox Pulse Ox 11/27/22 13:41 36.8 C 11/27/22 13:21 74 18 93 11/27/22 11:52 95 11/27/22 10:48 36.9 C 86 19 106/80 92 11/27/22 07:16 72 18 94 11/27/22 07:00 75 11/27/22 07:03 37.1 C 84 17 137/87 94 11/27/22 02:47 36.7 C 99 H 18 138/85 94 O2 Del Method O2 Flow Rate 11/27/22 13:41 11/27/22 13:21 Room Air 11/27/22 11:52 0 11/27/22 10:48 Room Air 11/27/22 07:16 Room Air 11/27/22 07:00 11/27/22 07:03 Room Air 11/27/22 02:47 Room Air Laboratory Results 11/27/22 05:56 11/27/22 09:44 PG Care Time/CCT Total # of Minutes Spent Total Time Spent with Patient: Total time spent is greater than 50% in coordination of care (as documented) at patient's floor/unit and/or counseling patient: Coding Level of Care Code 22865 SUB INP/OBS CARE 3/50MIN Diagnoses Hyponatremia E87.1 Bronchitis J40 Hypertension I10 Hypertension type: primary hypertension A-fib I48.21 Atrial fibrillation type: permanent Asthma J45.909 (1) Hypertension Hypertension type: primary hypertension Qualified Code(s): I10 - Essential (primary) hypertension (2) A-fib Atrial fibrillation type: permanent Qualified Code(s): I48.21 - Permanent atrial fibrillation
[2022-11-27] MEDS: LATANOPROST 0.005% OP SOLN 2.5 ML BTL OPB SCH (20:12)
[2022-11-27] MEDS: SIMVASTATIN 10 MG TAB PO SCH (20:12)
[2022-11-28] MEDS: ALBUT/IPRATROP 3MG/0.5MG NEB 3 ML VIAL INH SCH ×3 (01:00→13:08)
[2022-11-28 06:24] LABS: Calcium 8.9 mg/dl (8.5-10.1); Creatinine Clr Calc Pharmacy 53.8 ml/min; Est GFR (African American) 83.8 ml/min; Est GFR (Non-African American) 72.3 ml/min; Potassium 3.9 mmol/L (3.5-5.1)
[2022-11-28] MEDS: FLUTICASONE/VILANTEROL 200/25MCG 14 PUFFS/INHALER INH SCH (08:29)
[2022-11-28] MEDS: POTASSIUM CHLORIDE CRTAB 20 MEQ TABCR PO SCH (08:30)
[2022-11-28] MEDS: BENZONATATE 100 MG CAPSULE PO SCH (08:30)
[2022-11-28] MEDS: APIXABAN 5 MG TABLET PO SCH (08:30)
--- NOTE | 2022-11-28 09:58 | Discharge Summary ---
Date of Service November 28, 2022 Admission HPI Per Admitting Provider Abbie Rob is an 87-year-old female with a past medical history significant for asthma/COPD, afib on Eliquis, hypertension, and hyperlipidemia is presenting today with complaints of shortness of breath and cough. This started 10 days ago, she did call her PCP who advised her to take Mucinex twice daily, also tested her for flu and COVID which were negative. For the past 2 or 3 days, patient has been taking Mucinex and also drinking about 100-120 ounces of water daily with minimal food intake as she has not had an appetite. She continues to feel short of breath with minimal ambulation, and is now weak, nauseous, and per her daughter seems more confused over the past day or so. She has not had any fever chills or body aches. On presentation she is hypertensive 189/93, otherwise vital signs within normal limits, she is afebrile. Labs notable for sodium of 117 with glucose fairly normal at 119. Potassium, chloride, magnesium all slightly low at 3.4, 79, 1.6 respectively. Procalcitonin is <0.05. Troponin 7.4. Negative for COVID/flu/RSV. Urine, with urine osmolality, urine sodium, urine potassium, urine chloride, and Legionella antigen all pending. CXR shows cardiomegaly with mild congestive change. No focal lung consolidation suggestive of pneumonia, no pneumothorax or pleural effusions. Principal Diagnosis Viral asthmatic bronchitis, hyperosmolar hyponatremia secondary to polydipsia, hypomagnesemia Discharge Exam General-alert and oriented x3, no fevers, no chills HEENT-head atraumatic and normocephalic, pupils equal and reactive to light, extraocular muscles intact Neck-no lymphadenopathy or thyromegaly, trachea midline Chest-rhonchi and wheezing nearly resolved. No dullness. Cardiac-regular rate and rhythm, normal S1 and S2 Abdomen-normal bowel sounds, nontender, no hepatosplenomegaly Extremities-no cyanosis, clubbing, or edema Neuro-cranial nerves II through XII intact, motor and sensory function within normal limits, strength symmetrical with generalized weakness , no focal deficits Psych-normal affect, normal mood Discharge Data Allergies Allergy/AdvReac Type Severity Reaction Status Date / Time phenazopyridine AdvReac Unknown HEADACHE, Verified 08/17/22 15:30 VISUAL PROBLEMS Consultations 11/26/22 13:12 ED Decision to Admit Stat Hospital Course (1) Hyponatremia: Hypoosmolar hyponatremia consistent with SIADH or polydipsia. In her case it appears to be due to polydipsia. She is now on fluid restriction. Daily labs ordered. Much improved now with sodium rising to 127. This should normalize. She is cautioned to avoid polydipsia in the future (2) Bronchitis: Appears to be viral with bronchospasm. Continue nebulizer treatments. Wheezing has nearly now resolved. No sign of pneumonia on chest x-ray. Home on oral antibiotic and prednisone taper (3) Hypertension: losartan on hold due to hyponatremia. Currently acceptable BP. Will restart at discharge (4) A-fib: Controlled rate. Continue Eliquis. (5) Asthma: - ? COPD overlap. Uses home inhalers, zafirlukast every 12 hours. Management of bronchitis as above. Plan Home today, November 28 Total Time Total Time Spent Total Time Spent (In Minutes): 35 minutes Discharge Plan Discharge Items Patient Disposition: Home - Self-Care Reason For Visit: HYPONATREMIA Discharge Diagnosis: Acute viral bronchitis with bronchospasm, hypoosmolar hyponatremia due to polydipsia, hypomagnesemia Activity: Resume your previous activity Non-emergency contact: Primary Care Provider Call non-emergency contact if: you have any medication questions and your symptoms worsen Follow-up/Referrals: Zaina Waddell MD [Primary Care Provider] - Diet: Heart Healthy Addtl Attending Provider Instructions: Drink fluids only with meals or if feeling thirsty. Take prednisone tapering dose as directed Pending Studies at Discharge: No Stand-Alone Forms: My [facility] [employer], Smoking Cessation Medications and DC Order Prescriptions: New potassium chloride 20 mEq Tablet,Er Particles/Crystals 20 meq PO TID Qty: 100 0RF prednisone 10 mg tablet See Rx Instructions .ROUTE .COMPLEX Qty: 12 0RF Rx Instructions: 10 mg orally 3 times a day for 2 days, then 10 mg twice a day for 2 days, then 10 mg once a day for 2 days, then stop Continued losartan 50 mg tablet 50 mg PO QAM Qty: 90 3RF triamterene-hydrochlorothiazid 37.5-25 mg tablet 1 tab PO DAILY Qty: 90 3RF zafirlukast [Accolate] 20 mg tablet 20 mg PO Q12H Qty: 180 3RF apixaban 5 mg tablet 5 mg PO BID Qty: 180 1RF budesonide-formoterol [Symbicort] 160-4.5 mcg/actuation HFA aerosol inhaler 2 puff inhalation BID Qty: 10.2 2RF simvastatin 10 mg tablet 10 mg PO HS latanoprost 0.005 % drops 1 drops OPB HS Discharge Orders: Discharge Order (Routine); Ordered 11/28/22 Ordered By: Ascencion Alfonso Admission Data Admit Date/Time: 11/26/22 13:30 Attending Provider: Ascencion Alfonso Admit Provider: Edvin Goel Primary Care Provider: Zaina Waddell Other Providers: Edvin Goel Coding Level of Care Code HOSP INP/OBS DISCH >30 MIN Diagnoses Hyponatremia E87.1 Bronchitis J40 Hypertension I10 Hypertension type: primary hypertension A-fib I48.21 Atrial fibrillation type: permanent Asthma J45.909
== END 2022-11-28 13:57 | disposition home or self-care (01) | DRG 641 ==
LOC: ED 11:25 → EDINP 13:30 → SUATTDRO 13:30 → 2E 15:35

== ENCOUNTER 2023-03-21 19:52 | Observation (INO) ==
--- NOTE | 2023-03-21 20:05 | Emergency Department Note ---
Impression & Plan Stroke-like symptom, A-fib, Hypertension, TIA (transient ischemic attack) ED Provider Note NAME: NEGRA YOUSSEF AGE: 88 SEX: F : 1935 ARRIVES VIA: Walk-In INFORMANT: Patient, ED PROVIDER(S): Luis Enrique Puga MD CHIEF COMPLAINT: Speech difficulty MEDICAL DECISION MAKING: Patient presents for strokelike symptoms primarily dysarthria noted at the bedside. Stroke alert was initiated patient did go to CT and did have a CT head and CT angiography head and neck. Patient is not a TNK candidate as the patient does take Eliquis. I did briefly talk with telestroke neurologist Dr. Car who stated that this did not sound as though this was a large vessel occlusion and that the patient is not a TNK candidate given her Eliquis use. She stated that we could call back if there was concerning signs seen on the CT head or CT angiography. Patient CT head and CT angiography are negative. The patient is still had d ysarthria and word finding difficulty. Blood work shows white count of 11.6. Normal hemoglobin and platelet count. Kidney function is grossly unremarkable with normal [id number] glucose 97. Prerenal azotemia noted. The patient did have some mild hypoxia in the high 80s but no reported shortness of breath and the patient has clear lung sounds. Additional imaging deferred to the inpatient team. No signs of obvious volume overload. I did speak with Dr. Wade with the medicine service and the patient was admitted to the medicine service. Critical Care: I have personally spent 37 minutes of critical care time in direct management of this patient. This includes bedside care, interpretation of diagnostic studies, and testing, discussion with consultants, patient, and family members, and other require inpatient management activities. This 37 minutes is in excess of all separately billable procedures. Prior /Outside records reviewed: I did review the patient's most recent primary care visit with Zaina Subramanian her patient had been seen for hypertension. The patient was on losartan 50 mg twice daily. Patient has known history of hypertension A-fib HLD asthma and osteoarthritis. Per review the patient's medication list she is on Eliquis 5 twice daily. Differential diagnosis: Infection, dehydration, metabolic abnormality, hypo/hyperglycemia, electrolyte disturbance, anemia, hypoxia, cardiac sources, intracerebral event, toxicologic, neurologic, as well as other pathologies. Diagnostics, as interpreted by me: ECG: A-fib with PVCs noted, rate of 85, normal QRS duration, normal axis no ST elevations. Cardiac monitoring: An order was placed for continuous cardiac monitoring. The monitor shows a rate of 87 with irregular irregular rhythm. Patient was placed on pulse oximetry Medical decision rules: None Imaging studies: See below HPI: Patient presents due to concern for strokelike symptoms that occurred approximate 3 hours prior to arrival. The patient apparently was taking a bowl of chips drops it was unable to pick them up and states that she did not feel quite right. The patient's daughter then presented here. This is about 3 hours post onset upon presentation to the emergency department. Patient reportedly not complained of any headache neck pain chest pain or shortness of breath. Patient reportedly is compliant with medications. No reported falls or trauma. No upper respiratory symptoms cough fevers or chills no reported fever. The patient does not use any alcohol tobacco or drugs. PAST MEDICAL HISTORY: See Below PAST SURGICAL HISTORY: See Below SOCIAL HISTORY: See Below HOME MEDICATIONS: See Below ALLERGIES: See Below VITALS: See Below PHYSICAL EXAMINATION: GENERAL: NAD, wearing a mask, non-toxic. EYE EXAM: Normal conjunctiva. PERRL, no anisocoria and EOM's grossly intact w/o pain. NECK: Supple, no nuchal rigidity, no adenopathy, non-tender. No signs of meningismus. FROM of the neck with good chin to chest and neck extension. No stridor. LUNGS: Clear to auscultation. Normal chest wall mechanics. HEART: NSR, no MRG. ABDOMEN: Abdomen soft, non-tender, no masses, no rebound or guarding. BACK: No CVA TTP. SKIN: No rashes and no bruising. UPPER EXTREMITIES: Upper extremities are grossly normal. LOWER EXTREMITIES: Grossly normal, no edema. NEURO EXAM: Awake and alert, follows commands, oriented to person year and family in the room, cranial nerves II-XII grossly intact, word finding due to difficulty with mild dysarthria which is intermittent, moves all 4 extremities. Past Med/Surg History Medical History (Updated 03/22/23 @ 18:58 by Luis Enrique Puga MD) A-fib Asthma Closed rib fracture History of CVA (cerebrovascular accident) Hypertension Prediabetes TIA (transient ischemic attack) Surgical History No pertinent past surgical history Family History Grandfather (Maternal) Stroke Heart disease Hypertension Mother Hypertension Heart disease Diabetes Father Heart disease Hypertension Sister Diabetes Denies family history of Ovarian cancer Prostate cancer Myocardial infarction Breast cancer Lung cancer Colorectal cancer Social History Smoking Status: Former smoker Tobacco Type: Cigarettes Age Started Using Tobacco: 18; Age Quit Using Tobacco: 49; packs per day: 0.10; Second Hand Exposure: Yes; Do You Dip or Chew Tobacco: No; Hx Alcohol Use: No Hx Substance Use: No Preferred Language: Czech Communication Ability: Effective Communication Ability Comment: New stroke symptoms Visual Impairment: Limited Hearing Ability: Use of Hearing Aid Buggy Man Required: No Beliefs That Will Affect Care: None marital status: / Current Living Situation: Family Current Living Situation Comment: lives with daughter Feels Safe at Home: Yes Childhood Exposure to Second-Hand Smoke: Yes (parents) Diet: regular Dental Care, Regularly: Yes Seatbelt Use: always Sunscreen Use: Yes Assistive Devices: Cane and Glasses Allergies Allergies Allergy/AdvReac Type Severity Reaction Status Date / Time phenazopyridine AdvReac Unknown HEADACHE, Verified 03/21/23 20:10 VISUAL PROBLEMS Home Meds Home Medications Medication Instructions Recorded Confirmed latanoprost 0.005 % eye drops 1 drops OPB HS 06/20/19 03/21/23 brimonidine 0.1 % eye drops 1 drp OPB BID 03/21/23 03/21/23 (Alphagan P) Previous Rx's Medication Instructions Recorded albuterol sulfate 90 mcg/actuation 1 inh inhalation QID PRN shortness 12/06/22 aerosol inhaler of breath or wheezing #8.5 grams budesonide-formoterol HFA 160 2 puff inhalation BID #10.2 grams 01/01/23 mcg-4.5 mcg/actuation aerosol inhaler (Symbicort) apixaban 5 mg tablet 5 mg PO BID #180 tabs 01/02/23 losartan 50 mg tablet 50 mg PO BID #180 tabs 03/09/23 aspirin 81 mg tablet,delayed 81 mg PO QAM #30 tabs 03/22/23 release atorvastatin 40 mg tablet 40 mg PO DAILY #30 tabs 03/22/23 Results & Data (ED) Vital Signs Vital Signs - 24 hr 03/21/23 19:58 03/21/23 20:32 03/21/23 20:23 Temperature 36.8 C Temperature Source Temporal Artery Scan Pulse Rate 77 86 78 Pulse Rate from SpO2 Sensor Respiratory Rate 18 15 Blood Pressure 192/89 H Blood Pressure Mean 123 Pulse Oximetry 98 Oxygen Delivery Method Room Air Oxygen Flow Rate Sepsis Recent Fever Within 48 Hours No Sepsis New/Unexplained Change in Mental Status No Sepsis Action Taken by Nursing No Action Required 03/21/23 20:25 03/21/23 20:25 03/21/23 20:30 Temperature Temperature Source Pulse Rate 83 86 Pulse Rate from SpO2 Sensor 88 88 Respiratory Rate 19 24 Blood Pressure 223/93 H Blood Pressure Mean 136 Pulse Oximetry 90 92 Oxygen Delivery Method Oxygen Flow Rate Sepsis Recent Fever Within 48 Hours Sepsis New/Unexplained Change in Mental Status Sepsis Action Taken by Nursing 03/21/23 20:44 03/21/23 20:44 03/21/23 20:45 Temperature Temperature Source Pulse Rate 81 78 Pulse Rate from SpO2 Sensor 82 80 Respiratory Rate 18 15 Blood Pressure 173/130 H Blood Pressure Mean 144 Pulse Oximetry 94 94 Oxygen Delivery Method Oxygen Flow Rate Sepsis Recent Fever Within 48 Hours Sepsis New/Unexplained Change in Mental Status Sepsis Action Taken by Nursing 03/21/23 21:00 03/21/23 21:00 03/21/23 21:15 Temperature Temperature Source Pulse Rate 83 Pulse Rate from SpO2 Sensor 86 Respiratory Rate 16 Blood Pressure 183/103 H 195/103 H Blood Pressure Mean 129 133 Pulse Oximetry 93 Oxygen Delivery Method Oxygen Flow Rate Sepsis Recent Fever Within 48 Hours Sepsis New/Unexplained Change in Mental Status Sepsis Action Taken by Nursing 03/21/23 21:15 03/21/23 21:30 03/21/23 21:31 Temperature Temperature Source Pulse Rate 72 74 80 Pulse Rate from SpO2 Sensor 76 76 87 Respiratory Rate 18 20 24 Blood Pressure Blood Pressure Mean Pulse Oximetry 96 95 95 Oxygen Delivery Method Oxygen Flow Rate Sepsis Recent Fever Within 48 Hours Sepsis New/Unexplained Change in Mental Status Sepsis Action Taken by Nursing 03/21/23 21:31 03/21/23 21:45 03/21/23 21:46 Temperature Temperature Source Pulse Rate 68 77 Pulse Rate from SpO2 Sensor 77 74 Respiratory Rate 19 16 Blood Pressure 191/109 H Blood Pressure Mean 136 Pulse Oximetry 95 96 Oxygen Delivery Method Oxygen Flow Rate Sepsis Recent Fever Within 48 Hours Sepsis New/Unexplained Change in Mental Status Sepsis Action Taken by Nursing 03/21/23 21:46 03/21/23 22:00 03/21/23 22:15 Temperature Temperature Source Pulse Rate 78 Pulse Rate from SpO2 Sensor 88 Respiratory Rate 19 Blood Pressure 189/115 H 175/102 H Blood Pressure Mean 139 126 Pulse Oximetry 95 Oxygen Delivery Method Oxygen Flow Rate Sepsis Recent Fever Within 48 Hours Sepsis New/Unexplained Change in Mental Status Sepsis Action Taken by Nursing 03/21/23 22:15 03/21/23 22:30 03/21/23 22:30 Temperature Temperature Source Pulse Rate 71 80 Pulse Rate from SpO2 Sensor 76 88 Respiratory Rate 17 20 Blood Pressure 171/100 H Blood Pressure Mean 123 Pulse Oximetry 94 93 Oxygen Delivery Method Oxygen Flow Rate 2 Sepsis Recent Fever Within 48 Hours Sepsis New/Unexplained Change in Mental Status Sepsis Action Taken by Half-Way Medications Current Medication List: was personally reviewed by me Laboratory Data Attestation: I reviewed the patient's lab results. 03/22/23 07:09 03/22/23 07:13 Lab Results 03/21/23 03/21/23 03/21/23 Range/Units 20:25 20:30 20:30 WBC 11.66 H (4.8-10.8) K/ul RBC 4.39 (4.20-5.40) M/uL Hgb 13.5 (12.0-16.0) g/dl POC Hgb (12.0-16.0) g/dl Hct 39.5 (37.0-47.0) % POC Hct (37-47) % MCV 90.0 (80.0-100.0) fL MCH 30.8 (25.0-34.0) pg MCHC 34.2 (32.0-36.0) g/dL RDW Std Deviation 45.0 (36.4-46.3) fL RDW Coeff of Dia 13.6 (11.5-14.5) % Plt Count 208 (130-400) K/uL MPV 11.1 (9.4-12.4) fL Immature Gran % (Auto) 0.3 % Neut % (Auto) 44.8 % Lymph % (Auto) 44.1 % [place] % (Auto) 7.3 % Eos % (Auto) 2.9 % Baso % (Auto) 0.6 % Neut # (Auto) 5.23 (1.40-6.50) K/uL Lymph # (Auto) 5.14 H (1.2-3.4) K/uL [place] # (Auto) 0.85 H (0.11-0.59) K/uL Eos # (Auto) 0.34 (0-0.50) K/uL Baso # (Auto) 0.07 (0-0.2) K/uL Immature Gran # (Auto) 0.03 (0.01-0.20) K/uL Blood Smear Review PT 11.1 (9.0-12.0) Seconds INR 1.0 (0.9-1.1) APTT 29.1 (21.0-31.0) Seconds PTT Ratio 1.0 POC Sodium (135-144) mmol/L Sodium (136-145) mmol/L POC Potassium (3.3-5.0) mmol/L Potassium (3.5-5.1) mmol/L POC Chloride (101-112) mmol/L Chloride (98-107) mmol/L Carbon Dioxide (21-32) mmol/L POC Total CO2 (24-31) mmol/L Anion Gap (3-11) POC Anion Gap (16-25) mmol/L POC BUN (7-18) mg/dl BUN (6-23) mg/dl Creatinine (0.6-1.2) mg/dl POC Creatinine (0.6-1.3) mg/dl Est Cr Clr Drug Dosing ml/min Est GFR ( Amer) ml/min Est GFR (Non-Af Amer) ml/min BUN/Creatinine Ratio (10-20) Glucose (70-99(Fasting)) mg/dl POC Glucose 97 (70-99) mg/dl POC Glucose (other) (70-99) mg/dl Calcium (8.6-10.3) mg/dl POC Ioniz Calcium Maria Esther (1.12-1.32) mmol/l Magnesium (1.7-2.4) mg/dl Total Bilirubin (0.2-1.0) mg/dl AST (13-39) U/L ALT (7-52) U/L Alkaline Phosphatase (34-104) U/L Troponin I High Sens (0-14) pg/ml Total Protein (6.0-8.3) gm/dl Albumin (3.4-5.0) gm/dl Globulin (2.5-4.0) gm/dl Albumin/Globulin Ratio (0.9-2) SARS-CoV-2, RNA, NAAT (NEGATIVE) 03/21/23 03/21/23 03/21/23 Range/Units 20:30 20:37 21:30 WBC (4.8-10.8) K/ul RBC (4.20-5.40) M/uL Hgb (12.0-16.0) g/dl POC Hgb 14.6 (12.0-16.0) g/dl Hct (37.0-47.0) % POC Hct 43 (37-47) % MCV (80.0-100.0) fL MCH (25.0-34.0) pg MCHC (32.0-36.0) g/dL RDW Std Deviation (36.4-46.3) fL RDW Coeff of Dia (11.5-14.5) % Plt Count (130-400) K/uL MPV (9.4-12.4) fL Immature Gran % (Auto) % Neut % (Auto) % Lymph % (Auto) % [place] % (Auto) % Eos % (Auto) % Baso % (Auto) % Neut # (Auto) (1.40-6.50) K/uL Lymph # (Auto) (1.2-3.4) K/uL [place] # (Auto) (0.11-0.59) K/uL Eos # (Auto) (0-0.50) K/uL Baso # (Auto) (0-0.2) K/uL Immature Gran # (Auto) (0.01-0.20) K/uL Blood Smear Review PT (9.0-12.0) Seconds INR (0.9-1.1) APTT (21.0-31.0) Seconds PTT Ratio POC Sodium 136 (135-144) mmol/L Sodium 133 L (136-145) mmol/L POC Potassium 3.9 (3.3-5.0) mmol/L Potassium 4.0 (3.5-5.1) mmol/L POC Chloride 98 L (101-112) mmol/L Chloride 101 (98-107) mmol/L Carbon Dioxide 26 (21-32) mmol/L POC Total CO2 27 (24-31) mmol/L Anion Gap 6 (3-11) POC Anion Gap 16.0 (16-25) mmol/L POC BUN 14 (7-18) mg/dl BUN 15 (6-23) mg/dl Creatinine 0.61 (0.6-1.2) mg/dl POC Creatinine 0.6 (0.6-1.3) mg/dl Est Cr Clr Drug Dosing 63.7 ml/min Est GFR ( Amer) 93.2 ml/min Est GFR (Non-Af Amer) 80.4 ml/min BUN/Creatinine Ratio 24.6 H (10-20) Glucose 95 (70-99(Fasting)) mg/dl POC Glucose (70-99) mg/dl POC Glucose (other) 97 (70-99) mg/dl Calcium 8.6 (8.6-10.3) mg/dl POC Ioniz Calcium Maria Esther 1.15 (1.12-1.32) mmol/l Magnesium 2.0 (1.7-2.4) mg/dl Total Bilirubin 0.5 (0.2-1.0) mg/dl AST 14 (13-39) U/L ALT 8 (7-52) U/L Alkaline Phosphatase 66 (34-104) U/L Troponin I High Sens 6.7 (0-14) pg/ml Total Protein 6.8 (6.0-8.3) gm/dl Albumin 3.7 (3.4-5.0) gm/dl Globulin 3.1 (2.5-4.0) gm/dl Albumin/Globulin Ratio 1.2 (0.9-2) SARS-CoV-2, RNA, NAAT NEGATIVE (NEGATIVE) Administered Medications Discontinued Medications Acetaminophen (Acetaminophen 325 Mg Tab) 650 mg PO Q4H PRN PRN Reason: Pain or Fever Stop: 04/21/23 02:09 Last Admin: 03/22/23 08:08 Dose: 650 mg Documented By: YANETH Apixaban (Apixaban 5 Mg Tablet) 5 mg PO BID JOE Stop: 04/21/23 09:14 Last Admin: 03/22/23 09:40 Dose: 5 mg Documented By: YANETH Aspirin (Aspirin 81 Mg Ectab) 81 mg PO QAM JOE Stop: 04/21/23 08:59 Last Admin: 03/22/23 08:01 Dose: 81 mg Documented By: YANETH Fluticasone/Vilanterol (Fluticasone/Vilanterol 100/25mcg 14 Puffs/Inhaler) 1 puffs INH DAILY JOE Stop: 04/21/23 08:59 Last Admin: 03/22/23 08:02 Dose: 1 puffs Documented By: YANETH Ioversol (Optiray 320 500ml) 111 ml IV ONCE ONE Stop: 03/21/23 20:16 Last Admin: 03/21/23 20:16 Dose: 111 ml Documented By: DEEPTI Lorazepam (Lorazepam 0.5 Mg Tab) 0.5 mg SL NOW PRN PRN Reason: PreMRI Last Admin: 03/22/23 11:52 Dose: 0.5 mg Documented By: YANETH Losartan Potassium (Losartan Potassium 50 Mg Tab) 50 mg PO BID JOE Stop: 04/21/23 14:49 Last Admin: 03/22/23 15:47 Dose: 50 mg Documented By: YANETH Miscellaneous (Alphagan~Order Awaiting Action) 1 each N/A QS JOE Stop: 04/21/23 07:59 Last Admin: 03/22/23 08:02 Dose: Not Given Documented By: YANETH Miscellaneous Information (Stroke Patient Discharge) 1 each N/A NOW STA Stop: 03/22/23 15:13 Last Admin: 03/22/23 15:47 Dose: 1 each Documented By: YANETH Imaging Data Radiologist's Impression: Head CT 03/21/23 20:06 CR Exam(s): CT HEAD Without Contrast EXAM: CT Head Without Intravenous Contrast CLINICAL HISTORY: Reason for exam: neuro deficit, acute stroke suspected. TECHNIQUE: Axial computed tomography images of the head/brain without intravenous contrast. Automated exposure control was utilized for the study. A dose lowering technique was utilized adhering to the principles of ALARA. COMPARISON: MRI brain 10/28/2020. CT had 10/28/2020 FINDINGS: Brain: Global parenchymal volume loss with chronic microvascular ischemic changes and chronic lacunar infarction of the head of the left caudate nucleus. No hemorrhage. Ventricles: No ventriculomegaly. Bones/joints: Unremarkable. No acute fracture. Soft tissues: Unremarkable. Sinuses: Unremarkable as visualized. Mastoid air cells: Unremarkable as visualized. No mastoid effusion. Orbits: Bilateral lens replacement. IMPRESSION: 1. No intracranial hemorrhage or evidence of large territorial infarction. 2. Global parenchymal volume loss with chronic microvascular ischemic changes and chronic lacunar infarction of the head of the left caudate nucleus. Communications: Call Doctor Stroke Electronically signed by: Evans Yee MD 03/21/23 20:31 PM Head CTA 03/21/23 20:06 Exam(s): CTA HEAD With Contrast IV Amt: 111ml optiray 320 EXAM: CT Angiography Head With Intravenous Contrast CLINICAL HISTORY: Reason for exam: neuro deficit, acute stroke suspected. TECHNIQUE: Axial computed tomographic angiography images of the head with intravenous contrast. Automated exposure control was utilized for the study. A dose lowering technique was utilized adhering to the principles of ALARA. MIP reconstructed images were created and reviewed. CONTRAST: Patient received 111ml optiray 320 of IV contrast COMPARISON: CT head 03/21/2023. FINDINGS: Right internal carotid artery: No acute findings. Intracranial segment is patent with no significant stenosis. No aneurysm. Right anterior cerebral artery: Unremarkable. No occlusion or significant stenosis. No aneurysm. Right middle cerebral artery: Unremarkable. No occlusion or significant stenosis. No aneurysm. Right posterior cerebral artery: Unremarkable. No occlusion or significant stenosis. No aneurysm. Right vertebral artery: Unremarkable as visualized. Left internal carotid artery: No acute findings. Intracranial segment is patent with no significant stenosis. No aneurysm. Left anterior cerebral artery: Unremarkable. No occlusion or significant stenosis. No aneurysm. Left middle cerebral artery: Unremarkable. No occlusion or significant stenosis. No aneurysm. Left posterior cerebral artery: Unremarkable. No occlusion or significant stenosis. No aneurysm. Left vertebral artery: Unremarkable as visualized. Basilar artery: Unremarkable. No occlusion or significant stenosis. No aneurysm. IMPRESSION: No large vessel occlusion. Electronically signed by: Evans Yee MD 03/21/23 20:33 PM Neck CTA 03/21/23 20:06 Exam(s): CTA NECK With Contrast IV Amt: 111ml optiray 320 EXAM: CT Angiography Neck With Intravenous Contrast CLINICAL HISTORY: Reason for exam: neuro deficit, acute stroke suspected. TECHNIQUE: Routine carotid CT angiography protocol was performed with intravenous contrast. NASCET criteria using the distal ICAs for comparison were used for evaluation of stenoses. Automated exposure control was utilized for the study. A dose lowering technique was utilized adhering to the principles of ALARA. MIP reconstructed images were created and reviewed. CONTRAST: Patient received 111ml optiray 320 of IV contrast COMPARISON: None. FINDINGS: VASCULATURE: Right common carotid artery: Unremarkable. No occlusion or significant stenosis. No dissection. Right internal carotid artery: Unremarkable. Extracranial segment is patent with no occlusion or significant stenosis. No dissection. Right external carotid artery: Unremarkable. No occlusion. Right vertebral artery: Unremarkable. No occlusion or significant stenosis. No dissection. Left common carotid artery: Unremarkable. No occlusion or significant stenosis. No dissection. Left internal carotid artery: Unremarkable. Extracranial segment is patent with no occlusion or significant stenosis. No dissection. Left external carotid artery: Unremarkable. No occlusion. Left vertebral artery: Unremarkable. No occlusion or significant stenosis. No dissection. NECK: Bones/joints: Unremarkable. Soft tissues: Unremarkable. Lung apices: Clear. Other findings: Exam is degraded by patient motion. CAROTID STENOSIS REFERENCE USING NASCET CRITERIA: % ICA stenosis = (1 - narrowest ICA diameter/diameter of distal cervical ICA) x 100. Mild - <50% stenosis. Moderate - 50-69% stenosis. Severe - 70-94% stenosis. Near occlusion - 95-99% stenosis. Occluded - 100% stenosis. IMPRESSION: Motion degraded examination. No occlusion of the carotid or vertebral arteries. Electronically signed by: Evans Yee MD 03/21/23 20:36 PM Discharge Plan Visit Data Chief Complaint: TIA Symptoms Stated Complaint: SLURRED SPEACH,PAIN LOWER R SIDE,TIRED ED Provider: Luis Enrique Puga Discharge Problem: Stroke-like symptom, A-fib, Hypertension, TIA (transient ischemic attack) Patient Disposition: Admitted As Inpatient Discharge Instructions Interventions: ED Discharge Assessment Last Done: 03/22/23 01:19
[2023-03-21] MEDS ORDERED: OPTIRAY 320 500ml IV ONE (20:15)
--- NOTE | 2023-03-21 20:32 | CT Scan Report ---
Exam(s): CT HEAD Without Contrast EXAM: CT Head Without Intravenous Contrast CLINICAL HISTORY: Reason for exam: neuro deficit, acute stroke suspected. TECHNIQUE: Axial computed tomography images of the head/brain without intravenous contrast. Automated exposure control was utilized for the study. A dose lowering technique was utilized adhering to the principles of ALARA. COMPARISON: MRI brain 10/28/2020. CT had 10/28/2020 FINDINGS: Brain: Global parenchymal volume loss with chronic microvascular ischemic changes and chronic lacunar infarction of the head of the left caudate nucleus. No hemorrhage. Ventricles: No ventriculomegaly. Bones/joints: Unremarkable. No acute fracture. Soft tissues: Unremarkable. Sinuses: Unremarkable as visualized. Mastoid air cells: Unremarkable as visualized. No mastoid effusion. Orbits: Bilateral lens replacement. IMPRESSION: 1. No intracranial hemorrhage or evidence of large territorial infarction. 2. Global parenchymal volume loss with chronic microvascular ischemic changes and chronic lacunar infarction of the head of the left caudate nucleus. Communications: Call Doctor Stroke Electronically signed by: Evans Yee MD 03/21/23 20:31 PM
--- NOTE | 2023-03-21 20:34 | CT Scan Report ---
Exam(s): CTA HEAD With Contrast IV Amt: 111ml optiray 320 EXAM: CT Angiography Head With Intravenous Contrast CLINICAL HISTORY: Reason for exam: neuro deficit, acute stroke suspected. TECHNIQUE: Axial computed tomographic angiography images of the head with intravenous contrast. Automated exposure control was utilized for the study. A dose lowering technique was utilized adhering to the principles of ALARA. MIP reconstructed images were created and reviewed. CONTRAST: Patient received 111ml optiray 320 of IV contrast COMPARISON: CT head 03/21/2023. FINDINGS: Right internal carotid artery: No acute findings. Intracranial segment is patent with no significant stenosis. No aneurysm. Right anterior cerebral artery: Unremarkable. No occlusion or significant stenosis. No aneurysm. Right middle cerebral artery: Unremarkable. No occlusion or significant stenosis. No aneurysm. Right posterior cerebral artery: Unremarkable. No occlusion or significant stenosis. No aneurysm. Right vertebral artery: Unremarkable as visualized. Left internal carotid artery: No acute findings. Intracranial segment is patent with no significant stenosis. No aneurysm. Left anterior cerebral artery: Unremarkable. No occlusion or significant stenosis. No aneurysm. Left middle cerebral artery: Unremarkable. No occlusion or significant stenosis. No aneurysm. Left posterior cerebral artery: Unremarkable. No occlusion or significant stenosis. No aneurysm. Left vertebral artery: Unremarkable as visualized. Basilar artery: Unremarkable. No occlusion or significant stenosis. No aneurysm. IMPRESSION: No large vessel occlusion. Electronically signed by: Evans Yee MD 03/21/23 20:33 PM
--- NOTE | 2023-03-21 20:37 | CT Scan Report ---
Exam(s): CTA NECK With Contrast IV Amt: 111ml optiray 320 EXAM: CT Angiography Neck With Intravenous Contrast CLINICAL HISTORY: Reason for exam: neuro deficit, acute stroke suspected. TECHNIQUE: Routine carotid CT angiography protocol was performed with intravenous contrast. NASCET criteria using the distal ICAs for comparison were used for evaluation of stenoses. Automated exposure control was utilized for the study. A dose lowering technique was utilized adhering to the principles of ALARA. MIP reconstructed images were created and reviewed. CONTRAST: Patient received 111ml optiray 320 of IV contrast COMPARISON: None. FINDINGS: VASCULATURE: Right common carotid artery: Unremarkable. No occlusion or significant stenosis. No dissection. Right internal carotid artery: Unremarkable. Extracranial segment is patent with no occlusion or significant stenosis. No dissection. Right external carotid artery: Unremarkable. No occlusion. Right vertebral artery: Unremarkable. No occlusion or significant stenosis. No dissection. Left common carotid artery: Unremarkable. No occlusion or significant stenosis. No dissection. Left internal carotid artery: Unremarkable. Extracranial segment is patent with no occlusion or significant stenosis. No dissection. Left external carotid artery: Unremarkable. No occlusion. Left vertebral artery: Unremarkable. No occlusion or significant stenosis. No dissection. NECK: Bones/joints: Unremarkable. Soft tissues: Unremarkable. Lung apices: Clear. Other findings: Exam is degraded by patient motion. CAROTID STENOSIS REFERENCE USING NASCET CRITERIA: % ICA stenosis = (1 - narrowest ICA diameter/diameter of distal cervical ICA) x 100. Mild - <50% stenosis. Moderate - 50-69% stenosis. Severe - 70-94% stenosis. Near occlusion - 95-99% stenosis. Occluded - 100% stenosis. IMPRESSION: Motion degraded examination. No occlusion of the carotid or vertebral arteries. Electronically signed by: Evans Yee MD 03/21/23 20:36 PM
[2023-03-21 20:40] LABS: Hematocrit (blood only) 39.5 % (37.0-47.0); Hemoglobin 13.5 g/dl (12.0-16.0); Mean Corpuscular Hemoglobin 30.8 pg (25.0-34.0); Mean Corpuscular Hgb Conc 34.2 g/dL (32.0-36.0); Mean Platelet Volume 11.1 fL (9.4-12.4); Platelet Count 208 K/uL (130-400); RDW Coefficient of Variation 13.6 % (11.5-14.5); Red Blood Count 4.39 M/uL (4.20-5.40); White Blood Count 11.66 K/ul (4.8-10.8)
[2023-03-21 20:51] LABS: iSTAT Creatinine 0.6 mg/dl (0.6-1.3); iSTAT Hemoglobin 14.6 g/dl (12.0-16.0); iSTAT Ionized Calcium 1.15 mmol/l (1.12-1.32); iSTAT Potassium 3.9 mmol/L (3.3-5.0)
[2023-03-21 20:53] LABS: Partial Thromboplastin Time 29.1 Seconds (21.0-31.0); Prothrombin Time 11.1 Seconds (9.0-12.0)
[2023-03-21 20:59] LABS: Albumin Globulin Ratio 1.2 (0.9-2); Albumin Level 3.7 gm/dl (3.4-5.0); BUN Creatinine Ratio 24.6 (10-20); Bilirubin,Total 0.5 mg/dl (0.2-1.0); Calcium 8.6 mg/dl (8.6-10.3); Creatinine Clr Calc Pharmacy 63.7 ml/min; Est GFR (African American) 93.2 ml/min; Est GFR (Non-African American) 80.4 ml/min; Globulin 3.1 gm/dl (2.5-4.0); Total Protein 6.8 gm/dl (6.0-8.3)
[2023-03-21 21:06] LABS: Troponin I High Sensitivity 6.7 pg/ml (0-14)
[2023-03-21 22:19] LABS: Basophils # (auto) 0.07 K/uL (0-0.2); Basophils % (auto) 0.6 %; Eosinophils # (auto) 0.34 K/uL (0-0.50); Eosinophils % (auto) 2.9 %; Immature Granulocytes # (auto) 0.03 K/uL (0.01-0.20); Immature Granulocytes % (auto) 0.3 %; Lymphocytes # (auto) 5.14 K/uL (1.2-3.4); Lymphocytes % (auto) 44.1 %; Monocytes # (auto) 0.85 K/uL (0.11-0.59); Monocytes % (auto) 7.3 %; Neutrophils # (auto) 5.23 K/uL (1.40-6.50); Neutrophils % (auto) 44.8 %
--- NOTE | 2023-03-21 22:46 | History & Physical Report ---
Date of Service March 21, 2023 Assessment & Plan (1) Stroke-like symptom: Plan: 88 y/o F w/ PmHx A. fib on Eliquis BID, HTN, glaucoma, migraine w/ aura, bronchitis, hx of TIA prior to 2012 admitted for stroke like symptoms. Stroke like symptoms: -WBC 11, hgb 13.5, trop 6.7, Na 133. -CT Head, CTA head and neck without acute abnormalities. -Symptoms lasted ~1hour, resolved except minor word finding difficulties. -Ordered MRI brain w/o contrast to check for evidence of new stroke. Ordered TTE. -Ordered one time 0.5mg SL Ativan for MRI since patient with clostrophobia. -Neuro checks per protocol. -Holding home Eliquis until MRI back. -Given ASA 324mg in ED, continue on 81mg ASA qAM. -A1c ordered (last 6.4 in November), AM lipid profile, repeat BMP/CBC ordered. -Permissive hypertension up to 200 systolic. Holding home blood pressure medications. -Speech consulted for degree of expressive aphasia. Passed bedside swallow, moist and minced diet for now. -Admit to med/tele for cardiac monitoring. HTN: -Holding home blood pressure meds, permissive hypertension as above. A fib.: -Holding Eliquis 5mg BID as above until MRI comes back. -Has not required rate control. Hx of Bronchitis/asthma: -Continue home inhalers. F/E/N/GI: Moist and Minced, consulted speech. DVT Prophylaxis: SCDs Code status: Patient would want CPR, shock, medications, however no intubation. Dispo: Med/tele. (2) Hypertension: (3) Prediabetes: (4) Migraine with aura: (5) Hyponatremia: (6) A-fib: History of Present Illness Chief Complaint: Stroke like symptoms Primary Care Provider: Zaina Waddell MD Abbie is an 88 y/o F w/ PmHx A. fib on Eliquis BID, HTN, glaucoma, migraine w/ aura, hx of TIA prior to 2012 coming in for new onset stroke like symptoms. Patient is accompanied by her 2 daughters, one of which she lives with. Patient has a prior history of TIA more than 10 years prior. At that time she was told her MRI scans showed evidence of small areas of stroke. Fast forward to today p atient states that 30 minutes prior to coming to the hospital she had a sudden onset of weakness and paresthesia in her R arm, R side of the body, and R face. Per daughter she also had slurred speech and difficulty with finding words. This episode lasted for about an hour and then she had improvement in her symptoms. She had a little bit of a L sided forehead headache. She denies any fevers, chills, sweats, diarrhea, urinary symptoms, changes in vision or hearing, nausea or vomiting. Patient has a past history of atrial fibrillation for which she takes Eliquis 5 mg twice daily. She only takes losartan outpatient for blood pressure, she recently stopped her triamterenehydrochlorothiazide. She says that her blood pressure was running too low with the triamterene hydrochlorothiazide and that is why she stopped it. In the ED WBC 11.66, Na 133, K 3.9, troponin 6.7. CT head, CTA Head and Neck negative for acute processes or infarction. Allergies Allergy/AdvReac Type Severity Reaction Status Date / Time phenazopyridine AdvReac Unknown HEADACHE, Verified 03/21/23 20:10 VISUAL PROBLEMS Home Medications Medication Instructions Recorded Confirmed Type latanoprost 0.005 % eye drops 1 drops OPB HS 06/20/19 03/21/23 History albuterol sulfate 90 mcg/actuation 1 inh inhalation QID PRN shortness 12/06/22 03/21/23 Rx aerosol inhaler of breath or wheezing #8.5 grams budesonide-formoterol HFA 160 2 puff inhalation BID #10.2 grams 01/01/23 03/21/23 Rx mcg-4.5 mcg/actuation aerosol inhaler (Symbicort) apixaban 5 mg tablet 5 mg PO BID #180 tabs 01/02/23 03/21/23 Rx losartan 50 mg tablet 50 mg PO BID #180 tabs 03/09/23 03/21/23 Rx simvastatin 10 mg tablet 10 mg PO HS #90 tabs 03/15/23 03/21/23 Rx brimonidine 0.1 % eye drops 1 drp OPB BID 03/21/23 03/21/23 History (Alphagan P) triamterene 37.5 1 tab PO DAILY 03/21/23 03/21/23 History mg-hydrochlorothiazide 25 mg tablet Past Med/Surg History Medical History (Updated 03/21/23 @ 23:34 by Neel Nath DO) A-fib Asthma Closed rib fracture Hypertension Prediabetes Surgical History No pertinent past surgical history Family History Grandfather (Maternal) Stroke Heart disease Hypertension Mother Hypertension Heart disease Diabetes Father Heart disease Hypertension Sister Diabetes Denies family history of Ovarian cancer Prostate cancer Myocardial infarction Breast cancer Lung cancer Colorectal cancer Social History Smoking Status: Former smoker Tobacco Type: Cigarettes Age Started Using Tobacco: 18; Age Quit Using Tobacco: 49; packs per day: 0.10; Smoking End Date: when patient was in her 40s; Second Hand Exposure: Yes; Do You Dip or Chew Tobacco: No; Tobacco Cessation Education Requested by Patient: No Hx Alcohol Use: No Hx Substance Use: No Preferred Language: Korean Communication Ability: Effective Communication Ability Comment: New stroke symptoms Visual Impairment: Limited Hearing Ability: Use of Hearing Aid [employer] Assistant Required: No Beliefs That Will Affect Care: None marital status: / Current Living Situation: Family Current Living Situation Comment: lives with daughter Other Information That Helps Us Care for You: No Feels Safe at Home: Yes Safety Concerns: Feels Safe At This Time Childhood Exposure to Second-Hand Smoke: Yes (parents) Diet: regular Dental Care, Regularly: Yes Seatbelt Use: always Sunscreen Use: Yes Assistive Devices: Cane, Denture - Upper, Denture - Lower, Glasses and Hearing Aid - Bilateral Review of Systems Review of Systems: As per HPI. Physical Exam Constitutional: WD/WN, vitals as above Eyes: Pupils constricted bilaterally. Ocular range of motion in tact. Respiratory: normal respiratory effort, lungs clear to auscultation Cardiovascular: Rate/Rhythm: + irregularly irregular Heart Sounds: normal S1 and normal S2 No peripheral edema. Gastrointestinal (Abdomen): normal bowel sounds, soft, nontender, no hepatosplenomegaly Neurologic: patellar DTR's 2+ bilat, sensation intact and PERRL, EOMI, accommodation nl, no face palsy, no dysarthria Results & Data Results & Data Vital Signs (Past 12 Hours) Vital Signs Temp Pulse Resp BP Pulse Ox O2 Del Method 03/21/23 22:15 71 17 94 03/21/23 22:15 175/102 H 03/21/23 22:00 78 19 95 03/21/23 21:46 189/115 H 03/21/23 21:46 77 16 96 03/21/23 21:45 68 19 95 03/21/23 21:31 191/109 H 03/21/23 21:31 80 24 95 03/21/23 21:30 74 20 95 03/21/23 21:15 72 18 96 03/21/23 21:15 195/103 H 03/21/23 21:00 83 16 93 03/21/23 21:00 183/103 H 03/21/23 20:45 78 15 94 03/21/23 20:44 81 18 94 03/21/23 20:44 173/130 H 03/21/23 20:30 86 24 92 03/21/23 20:25 223/93 H 03/21/23 20:25 83 19 90 03/21/23 20:23 78 15 03/21/23 20:32 86 03/21/23 19:58 36.8 C 77 18 192/89 H 98 Room Air Supervising Physician Co-Signing Physician Notes Patient seen and examined, chart reviewed, case discussed with Dr. Nath and I agree with the assessment and plan as above Resident Activity Tracking Resident Involvement: Resident Care Provided Care Provided: Adult Hospital Medicine (2) Hypertension Hypertension type: primary hypertension Qualified Code(s): I10 - Essential (primary) hypertension (6) A-fib Atrial fibrillation type: permanent Qualified Code(s): I48.21 - Permanent atrial fibrillation
[2023-03-22] MEDS ORDERED: LORazepam 0.5 MG TAB SL PRN (02:10)
[2023-03-22] MEDS ORDERED: ALBUTEROL HFA 8 GM INHALER INH PRN (02:10)
[2023-03-22] MEDS ORDERED: ACETAMINOPHEN 325 MG TAB PO PRN (02:10)
[2023-03-22] MEDS ORDERED: PHARMACIST DISCHARGE MED REC CONSULT PRN (02:10)
[2023-03-22] MEDS ORDERED: ONDANSETRON INJ 2 MG/ML 2 ML VIAL IV PRN (02:10)
--- NOTE | 2023-03-22 05:13 | Billing Data ---
Date of Service March 21, 2023 Coding Level of Care Code 70254 INT INP/OBS CARE
[2023-03-22] MEDS ORDERED: ALPHAGAN~ORDER AWAITING ACTION SCH (08:00)
[2023-03-22 08:21] LABS: Basophils # (auto) 0.07 K/uL (0-0.2); Basophils % (auto) 0.7 %; Eosinophils # (auto) 0.17 K/uL (0-0.50); Eosinophils % (auto) 1.6 %; Hematocrit (blood only) 42.6 % (37.0-47.0); Hemoglobin 14.4 g/dl (12.0-16.0); Immature Granulocytes # (auto) 0.04 K/uL (0.01-0.20); Immature Granulocytes % (auto) 0.4 %; Lymphocytes # (auto) 2.56 K/uL (1.2-3.4); Lymphocytes % (auto) 24.5 %; Mean Corpuscular Hemoglobin 30.2 pg (25.0-34.0); Mean Corpuscular Hgb Conc 33.8 g/dL (32.0-36.0); Mean Corpuscular Volume 89.3 fL (80.0-100.0); Mean Platelet Volume 11.5 fL (9.4-12.4); Monocytes % (auto) 6.7 %; Neutrophils # (auto) 6.93 K/uL (1.40-6.50); Neutrophils % (auto) 66.1 %; Platelet Count 217 K/uL (130-400); RDW Coefficient of Variation 13.5 % (11.5-14.5); RDW Standard Deviation 44.5 fL (36.4-46.3); Red Blood Count 4.77 M/uL (4.20-5.40); White Blood Count 10.47 K/ul (4.8-10.8)
[2023-03-22 08:38] LABS: Chol HDL Ratio 3.4 (0-5)
[2023-03-22] MEDS ORDERED: FLUTICASONE/VILANTEROL 100/25MCG 14 PUFFS/INHALER INH SCH (09:00)
[2023-03-22] MEDS ORDERED: ASPIRIN 81 MG ECTAB PO SCH (09:00)
[2023-03-22] MEDS ORDERED: APIXABAN 5 MG TABLET PO SCH (09:15)
[2023-03-22 09:31] LABS: Estimated Average Glucose 128 mg/dl; Hemoglobin A1C 6.1 % (4.5-5.6)
[2023-03-22 10:02] LABS: Calcium 8.9 mg/dl (8.6-10.3); Creatinine Clr Calc Pharmacy 63.3 ml/min; Est GFR (African American) 93.2 ml/min; Est GFR (Non-African American) 80.4 ml/min
--- NOTE | 2023-03-22 10:39 | Electrocardiogram Report ---
Test Reason : Blood Pressure : / mmHG Vent. Rate : 085 BPM Atrial Rate : 086 BPM P-R Int : 000 ms QRS Dur : 092 ms QT Int : 386 ms P-R-T Axes : 000 065 052 degrees QTc Int : 459 ms Atrial fibrillation with frequent Premature ventricular complexes Septal infarct (cited on or before 10-OCT-2011) Abnormal ECG When compared with ECG of 26-NOV-2022 11:37, Questionable change in initial forces of Anterior leads Nonspecific T wave abnormality now evident in Inferior leads Confirmed by Law Mendez ([id number]) on 03/22/2023 10:39:10 AM Referred By: REFERRED SELF Confirmed By:Law Mendez
[2023-03-22 11:45] LABS: Appearance Urine Clear (Clear); Bacteria Urine Automated Negative (Negative); Bilirubin Urine Negative (Negative); Blood Urine Negative (Negative); Color Urine Dark Yellow; Epithelial Cell Urine Auto >30 /lpf (0-5); Glucose Urine UA Negative (Negative); Ketones Urine Negative (Negative); Leukocyte Esterase Urine Negative (Negative); Nitrite Urine Negative (Negative); Protein Urine 1+ (Negative); Specific Gravity Urine > 1.045 (1.000-1.030); Urobilinogen Urine Negative (Negative); pH Urine 6.5 (4.5-7.5)
--- NOTE | 2023-03-22 13:37 | Magnetic Resonance Report ---
Brain MRI WITHOUT CONTRAST HISTORY: Right arm weakness. New onset stroke like symptoms TECHNIQUE: Multiplanar multisequence MRI of the brain was performed without the use of contrast. COMPARISON STUDY: Head CT 03/21/2023. Brain MRI 10/28/2020. FINDINGS: There is no mass, hematoma, midline shift, or acute infarct. The paranasal sinuses are staci r. The mastoid air cells are clear. The ventricles and sulci demonstrate mild age-related involutiona l changes. Scattered foci of T2 hyperintensity seen within the periventricular and subcortical white matter are nonspecific but suggestive of moderate microvascular ischemic changes. This is similar to the prior study. The major vascular flow voids at the skull base are well-maintained. Prior bilateral lens replacement. There is an old punctate lacunar infarct seen within the left caudate head, unchan ged. IMPRESSION: No significant change compared to the prior study. No acute intracranial abnormality. ACT 112: Negative or not required by law. Electronically signed by: Shahab Kim M.D. 03/22/2023 1:36 PM
[2023-03-22] MEDS ORDERED: LOSARTAN POTASSIUM 50 MG TAB PO SCH (14:50)
[2023-03-22] MEDS ORDERED: STROKE PATIENT DISCHARGE STA (15:12)
--- NOTE | 2023-03-22 15:23 | Discharge Summary ---
Date of Service March 22, 2023 Admission HPI Per Admitting Provider Abbie is an 88 y/o F w/ PmHx A. fib on Eliquis BID, HTN, glaucoma, migraine w/ aura, hx of TIA prior to 2012 coming in for new onset stroke like symptoms. Patient is accompanied by her 2 daughters, one of which she lives with. Patient has a prior history of TIA more than 10 years prior. At that time she was told her MRI scans showed evidence of small areas of stroke. Fast forward to today patient states that 30 minutes prior to coming to the hospital she had a sudden onset of weakness and paresthesia in her R arm, R side of the body, and R face. Per daughter she also had slurred speech and difficulty with finding words. This episode lasted for about an hour and then she had improvement in her symptoms. She had a little bit of a L sided forehead headache. She denies any fevers, chills, sweats, diarrhea, urinary symptoms, changes in vision or hearing, nausea or vomiting. Patient has a past history of atrial fibrillation for which she takes Eliquis 5 mg twice daily. She only takes losartan outpatient for blood pressure, she recently stopped her triamterenehydrochlorothiazide. She says that her blood pressure was running too low with the triamterene hydrochlorothiazide and that is why she stopped it. In the ED WBC 11.66, Na 133, K 3.9, troponin 6.7. CT head, CTA Head and Neck negative for acute processes or infarction. Principal Diagnosis TIA Discharge Exam Constitutional WD/WN, vitals as above Eyes PERRL, conjunctivae normal, anicteric sclerae ENMT external ear and nose normal, oropharynx normal Respiratory normal respiratory effort, lungs clear to auscultation Cardiovascular Rate/Rhythm: regular rate and + irregularly irregular Heart Sounds: no murmur Extremities: no edema Neurologic PERRL, EOMI, accommodation nl, no face palsy, no dysarthria CN's II-XI intact bilaterally, moves all extremities and awake; no focal motor deficits and not confused Psychiatric A+Ox3, euthymic affect Discharge Data Allergies Allergy/AdvReac Type Severity Reaction Status Date / Time phenazopyridine AdvReac Unknown HEADACHE, Verified 03/21/23 20:10 VISUAL PROBLEMS Consultations 03/21/23 21:09 ED Decision to Admit Stat Ordered Studies 03/21/23 20:06 CT angio head w con Stat CT angio neck with con Stat CT head/brain wo con Stat 03/22/23 02:10 MR brain wo con Routine ECHO Hospital Course (1) TIA (transient ischemic attack): 88 y/o F w/ PmHx A. fib on Eliquis BID, HTN, glaucoma, migraine w/ aura, bron chitis, hx of TIA prior to 2012 admitted for stroke workup after having right sided hemiparesis and expressive aphasia that resolved on its own after 1 hour. TIA -CT Head, CTA head and neck without acute abnormalities. 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 She is compliant with her Eliquis -A1c 6.1% c/w prediabetes, lipids acceptable but LDL 101, TChol 168--> change simvastatin to atorvastatin 40mg daily-high intensity statin did well with PT/OT -encouraged good BP control, weight loss -f/u with PCP (2) History of CVA (cerebrovascular accident): seen on brain MRI start ASA 81mg po daily continue Eliquis bid high intensity statin started BP control (3) A-fib: rate controlled w/o AV hill blockers continue Eliquis (4) Hypertension: BPs high while meds on hold for permissive HTN restarted losartan 50mg po bid, dose given prior to discharge recently taken off triamterene/HCTZ for hyponatremia f/u with PCP (5) Prediabetes: A1C 6.1% recommend dietary changes and weight loss (6) Hyponatremia: Na+ normal remains off HCTZ Plan DVT porph-ELiquis Dispo-stable for dc to home Total Time Total Time Spent Total Time Spent (In Minutes): 40 min Discharge Plan Discharge Items Patient Disposition: Home - Self-Care Reason For Visit: STROKE LIKE SYMPTOMS Discharge Diagnosis: TIA Activity: Resume your previous activity Non-emergency contact: Primary Care Provider Call non-emergency contact if: you have any medication questions and your symptoms worsen Follow-up/Referrals: Zaina Waddell MD [Primary Care Provider] - (Follow up within 1-2 weeks.) Diet: Heart Healthy Addtl Attending Provider Instructions: You were admitted with symptoms and signs of a Transient Ischemic Attack (TIA). This is when a part of your brain temporarily did not get good blood flow due to a small clot, but then the clot broke up on its own and blood flow was restored. Your brain MRI shows an OLD stroke on the left side but NO NEW STROKES. You were started on a baby aspirin 81mg once daily to take in addition to your usual Eliquis. Your cholesterol medication will be changed to atorvastatin 40mg instead of simvastatin. Risk Factors for Stroke: You can reduce your chances of stroke by working with your medical provider to adopt a healthy lifestyle. Some specific ways to lower your chance of stroke are: * If you are a smoker, now is the time to stop smoking cigarettes * If you are diabetic, improve the control of your blood sugars * Avoid excessive amounts of alcohol * Control high blood pressure * Lose weight if you are overweight * Be sure to lead an active lifestyle * Eat a healthy diet low in salt, cholesterol and fat You should know about other risk factors for stroke that you are unable to control. These include: * Age 55 years or older * Male gender * Certain racial groups: , or / * Family History of Stroke, Mini stroke or Heart Attack * Sickle Cell Disease Follow Up: It is important for you to keep your follow up appointments with your medical provider. Who to Call and When: Medical Emergencies: Call 911 immediately if you experience any of the following warning signs and symptoms of Stroke: * Sudden numbness or weakness of the face, arm or leg, especially on one side of the body * Sudden confusion, trouble speaking or understanding * Sudden trouble seeing in one or both eyes * Sudden trouble walking, dizziness, loss of balance or coordination * Sudden severe headache with no cause Do not delay calling 911 if you experience any warning signs or symptoms of a stroke. Delay in seeking medical attention may affect what treatments can be given to you. . Pending Studies at Discharge: No Stand-Alone Forms: [facility], Smoking Cessation Medications and DC Order Prescriptions: New aspirin 81 mg Tablet,Delayed Release (Dr/Ec) 81 mg PO QAM Qty: 30 0RF atorvastatin 40 mg tablet 40 mg PO DAILY Qty: 30 0RF Continued budesonide-formoterol [Symbicort] 160-4.5 mcg/actuation HFA aerosol inhaler 2 puff inhalation BID Qty: 10.2 2RF apixaban 5 mg tablet 5 mg PO BID Qty: 180 1RF losartan 50 mg tablet 50 mg PO BID Qty: 180 3RF latanoprost 0.005 % drops 1 drops OPB HS albuterol sulfate 90 mcg/actuation HFA aerosol inhaler 1 inh inhalation QID PRN (Reason: shortness of breath or wheezing) Qty: 8.5 4RF Alphagan P 0.1 % drops 1 drp OPB BID Discontinued simvastatin 10 mg tablet 10 mg PO HS Qty: 90 1RF triamterene-hydrochlorothiazid 37.5-25 mg tablet 1 tab PO DAILY Discharge Orders: Discharge Order (Routine); Ordered 03/22/23 Ordered By: Tyesha Welch/Other Patient Handouts: A1C Admission Data Admit Date/Time: 03/21/23 22:45 Attending Provider: Tyesha Godfrey Admit Provider: Neel Nath Primary Care Provider: Zaina Waddell Other Providers: Shefali Wade Other Interventions: Discharge Summary Assessment (RN) Last Done: 03/22/23 14:06 Coding Level of Care Code 86708 INP/OBS DISCH >30 MIN Diagnoses TIA (transient ischemic attack) G45.9 History of CVA (cerebrovascular accident) Z86.73 A-fib I48.21 Atrial fibrillation type: permanent Hypertension I10 Hypertension type: primary hypertension Prediabetes R73.03 Hyponatremia E87.1
--- NOTE | 2023-03-22 15:27 | XCELERA ---
[id number]
[2023-03-22] MEDS ORDERED: SIMVASTATIN 20 MG TAB PO SCH (21:00)
[2023-03-22] MEDS ORDERED: LATANOPROST 0.005% OP SOLN 2.5 ML BTL OPB SCH (21:00)
== END 2023-03-22 16:45 | disposition home or self-care (01) ==
LOC: 2N 19:52 → ED 19:52 → SUATTDRO 22:45 → 2N 03-22 01:19

== ENCOUNTER 2023-03-22 21:30 | Observation (INO) ==
--- NOTE | 2023-03-22 21:59 | Emergency Department Note ---
Impression & Plan Stroke-like symptom, A-fib, Hypertension, History of CVA (cerebrovascular accident) ED Provider Note NAME: NEGRA YOUSSEF AGE: 88 SEX: F : 1935 ARRIVES VIA: Walk-In INFORMANT: Patient, ED PROVIDER(S): Luis Enrique Puga MD CHIEF COMPLAINT: Speech difficulty MEDICAL DECISION MAKING: Patient presents due to concern for strokelike symptoms which are similar when I did see the patient last evening. Patient does appear to be extremely tired which may also be contributory. IV was established but was obtain labs and EKG and urinalysis. CT head obtained. Patient's blood work shows a of 11 with a normal H&H and platelet count. The patient's kidney function is unremarkable with normal electrolytes. LFTs unrema rkable with normal TSH. Urinalysis does not show evidence of obvious infection. COVID-negative. CT shows no acute ICH shift or mass The patient did complain of headache and was noted to be hypertensive. The patient was ordered Zofran and Tylenol. The patient did not have significant improvement in symptoms but still hypertensive so a dose of IV hydralazine 5 mg was ordered. I did consult with the hospitalist Dr. Wade and she did evaluate the patient. Of note the daughters at the bedside state that she has intermittent periods of being less confused. After discussion with Dr. Wade she did consult with Dr. Palencia and the patient will be admitted to the medicine service Prior /Outside records reviewed: I did review the patient's discharge summary which showed that the patient was advised to start baby aspirin. Old CVA was noted on brain MRI. Patient was restarted on losartan at 50 mg twice daily. Patient was taken off of triamterene hydrochlorothiazide for hyponatremia Differential diagnosis: TIA, CVA, infection, dehydration, metabolic abnormality, hypo/hyperglycemia, electrolyte disturbance, anemia, hypoxia, cardiac sources, intracerebral event, toxicologic, neurologic, as well as other pathologies. Diagnostics, as interpreted by me: ECG: A-fib, rate of 77, normal QRS normal axis no ST elevations. Cardiac monitoring: An order was placed for continuous cardiac monitoring. The monitor shows a rate of 92 with irregularly irregular rhythm. Patient was placed on pulse oximetry Medical decision rules: None Imaging studies: See below HPI: Patient presents due to concern for slurred speech confusion as well as right hand numbness which began about an hour prior to arrival. The patient was seen in the hospital for similar symptoms and did have a stroke work-up. The patient was recently started on losartan 50 twice daily and was taken off triamterene hydrochlorothiazide. Patient did not report any headache nausea or vomiting. The patient ate a bowl of cereal for dinner. This is similar to how the patient presented last evening. Patient does not use any alcohol or tobacco. No recent falls or trauma. No reported chest pains and no cough or fever. PAST MEDICAL HISTORY: See Below PAST SURGICAL HISTORY: See Below SOCIAL HISTORY: See Below HOME MEDICATIONS: See Below ALLERGIES: See Below VITALS: See Below PHYSICAL EXAMINATION: GENERAL: NAD, wearing glasses, non-toxic. EYE EXAM: Normal conjunctiva. PERRL, no anisocoria and EOM's grossly intact w/o pain. NECK: Supple, no nuchal rigidity, no adenopathy, non-tender. No signs of meningismus. FROM of the neck with good chin to chest and neck extension. No stridor. LUNGS: Clear to auscultation. Normal chest wall mechanics. HEART: Irregularly irregular, no MRG. ABDOMEN: Abdomen soft, non-tender, no masses, no rebound or guarding. BACK: No CVA TTP. SKIN: No rashes and no bruising. UPPER EXTREMITIES: Upper extremities are grossly normal. LOWER EXTREMITIES: Grossly normal, no edema. NEURO EXAM: Awake and alert oriented to self people in the room but not current year,, cranial nerves II-XII grossly intact, occasional dysarthria and word finding difficulty, moves all 4 extremities. No sensory deficits and good [id number]. No obvious drift Past Med/Surg History Medical History A-fib Asthma Closed rib fracture History of CVA (cerebrovascular accident) Hypertension Prediabetes TIA (transient ischemic attack) Surgical History No pertinent past surgical history Family History Grandfather (Maternal) Stroke Heart disease Hypertension Mother Hypertension Heart disease Diabetes Father Heart disease Hypertension Sister Diabetes Denies family history of Ovarian cancer Prostate cancer Myocardial infarction Breast cancer Lung cancer Colorectal cancer Social History Smoking Status: Former smoker Tobacco Type: Cigarettes Age Started Using Tobacco: 18; Age Quit Using Tobacco: 49; packs per day: 0.10; Second Hand Exposure: Yes; Do You Dip or Chew Tobacco: No; Hx Alcohol Use: No Hx Substance Use: No Preferred Language: Albanian Communication Ability: Effective Communication Ability Comment: New stroke symptoms Visual Impairment: Limited Hearing Ability: Use of Hearing Aid Card Cutter Helper Required: No Beliefs That Will Affect Care: None marital status: / Current Living Situation: Family Current Living Situation Comment: lives with daughter Feels Safe at Home: Yes Childhood Exposure to Second-Hand Smoke: Yes (parents) Diet: regular Dental Care, Regularly: Yes Seatbelt Use: always Sunscreen Use: Yes Assistive Devices: Cane and Glasses Allergies Allergies Allergy/AdvReac Type Severity Reaction Status Date / Time phenazopyridine AdvReac Unknown HEADACHE, Verified 03/22/23 22:02 VISUAL PROBLEMS Home Meds Home Medications Medication Instructions Recorded Confirmed latanoprost 0.005 % eye drops 1 drops OPB HS 06/20/19 03/22/23 brimonidine 0.1 % eye drops 1 drp OPB BID 03/21/23 03/22/23 (Alphagan P) Previous Rx's Medication Instructions Recorded albuterol sulfate 90 mcg/actuation 1 inh inhalation QID PRN shortness 12/06/22 aerosol inhaler of breath or wheezing #8.5 grams budesonide-formoterol HFA 160 2 puff inhalation BID #10.2 grams 01/01/23 mcg-4.5 mcg/actuation aerosol inhaler (Symbicort) apixaban 5 mg tablet 5 mg PO BID #180 tabs 01/02/23 losartan 50 mg tablet 50 mg PO BID #180 tabs 03/09/23 aspirin 81 mg tablet,delayed 81 mg PO QAM #30 tabs 03/22/23 release atorvastatin 40 mg tablet 40 mg PO DAILY #30 tabs 03/22/23 Results & Data (ED) Vital Signs Vital Signs - 24 hr 03/22/23 21:32 03/22/23 21:54 03/22/23 22:38 Temperature 36.9 C Temperature Source Temporal Artery Scan Pulse Rate 74 70 Pulse Rate from SpO2 Sensor Pulse Rhythm Regular Pulse Strength Normal Respiratory Rate 19 Respiratory Effort / Characteristics Non-Labored Spontaneous Respiratory Depth Normal Respiratory Pattern Regular Blood Pressure 153/83 H Blood Pressure Mean 106 Blood Pressure Position Sitting Pulse Oximetry 93 92 Oxygen Delivery Method Room Air Room Air Sepsis Recent Fever Within 48 Hours No Sepsis New/Unexplained Change in Mental Status N/A Sepsis Action Taken by Nursing No Action Required 03/22/23 22:36 03/22/23 23:01 03/22/23 23:01 Temperature Temperature Source Pulse Rate 79 76 Pulse Rate from SpO2 Sensor 79 74 Pulse Rhythm Pulse Strength Respiratory Rate 14 16 Respiratory Effort / Characteristics Respiratory Depth Respiratory Pattern Blood Pressure 169/84 H 201/122 H 201/122 H Blood Pressure Mean 112 148 148 Blood Pressure Position Pulse Oximetry 92 92 Oxygen Delivery Method Sepsis Recent Fever Within 48 Hours Sepsis New/Unexplained Change in Mental Status Sepsis Action Taken by Nursing 03/22/23 23:48 03/23/23 00:00 03/23/23 00:33 Temperature Temperature Source Pulse Rate 78 79 93 H Pulse Rate from SpO2 Sensor 89 78 Pulse Rhythm Pulse Strength Respiratory Rate 17 17 17 Respiratory Effort / Characteristics Respiratory Depth Respiratory Pattern Blood Pressure 199/114 H 203/105 H 190/110 H Blood Pressure Mean 142 137 136 Blood Pressure Position Pulse Oximetry 93 91 91 Oxygen Delivery Method Sepsis Recent Fever Within 48 Hours Sepsis New/Unexplained Change in Mental Status Sepsis Action Taken by Snf Medications Current Medication List: was personally reviewed by me Laboratory Data Attestation: I reviewed the patient's lab results. 03/22/23 22:00 03/22/23 22:00 Lab Results 03/22/23 03/22/23 03/22/23 Range/Units 22:00 22:00 22:00 WBC 11.51 H (4.8-10.8) K/ul RBC 4.57 (4.20-5.40) M/uL Hgb 14.0 (12.0-16.0) g/dl Hct 42.0 (37.0-47.0) % MCV 91.9 (80.0-100.0) fL MCH 30.6 (25.0-34.0) pg MCHC 33.3 (32.0-36.0) g/dL RDW Std Deviation 46.4 H (36.4-46.3) fL RDW Coeff of Dia 13.8 (11.5-14.5) % Plt Count 206 (130-400) K/uL MPV 11.1 (9.4-12.4) fL Immature Gran % (Auto) 0.3 % Neut % (Auto) 56.7 % Lymph % (Auto) 31.2 % [place] % (Auto) 8.9 % Eos % (Auto) 2.3 % Baso % (Auto) 0.6 % Neut # (Auto) 6.53 H (1.40-6.50) K/uL Lymph # (Auto) 3.59 H (1.2-3.4) K/uL [place] # (Auto) 1.02 H (0.11-0.59) K/uL Eos # (Auto) 0.27 (0-0.50) K/uL Baso # (Auto) 0.07 (0-0.2) K/uL Immature Gran # (Auto) 0.03 (0.01-0.20) K/uL Sodium 137 (136-145) mmol/L Potassium 3.7 (3.5-5.1) mmol/L Chloride 100 (98-107) mmol/L Carbon Dioxide 28 (21-32) mmol/L Anion Gap 9 (3-11) BUN 15 (6-23) mg/dl Creatinine 0.68 (0.6-1.2) mg/dl Est Cr Clr Drug Dosing Not Reportable Est GFR ( Amer) 89.9 ml/min Est GFR (Non-Af Amer) 77.6 ml/min BUN/Creatinine Ratio 22.1 H (10-20) Glucose 88 (70-99(Fasting)) mg/dl Calcium 9.0 (8.6-10.3) mg/dl Magnesium 2.0 (1.7-2.4) mg/dl Total Bilirubin 0.8 (0.2-1.0) mg/dl AST 14 (13-39) U/L ALT 9 (7-52) U/L Alkaline Phosphatase 56 (34-104) U/L Troponin I High Sens 7.8 (0-14) pg/ml Total Protein 7.0 (6.0-8.3) gm/dl Albumin 3.9 (3.4-5.0) gm/dl Globulin 3.1 (2.5-4.0) gm/dl Albumin/Globulin Ratio 1.3 (0.9-2) TSH 3.381 (0.300-4.500) uIu/ml Urine Color Urine Appearance (Clear) Urine pH (4.5-7.5) Ur Specific [place] (1.000-1.030) Urine Protein (Negative) Urine Glucose (UA) (Negative) Urine Ketones (Negative) Urine Blood (Negative) Urine Nitrite (Negative) Urine Bilirubin (Negative) Urine Urobilinogen (Negative) Ur Leukocyte Esterase (Negative) Urine WBC (Auto) Urine RBC (Auto) U Hyaline Cast (Auto) U Epithel Cells (Auto) Urine Bacteria (Auto) Ur Renal Epithelial Cell Urine Crystals Calcium Oxalate Crystal Uric Acid Crystals Triple Phos Crystals Other Crystals Amorphous Sediment Granular Casts Waxy Casts RBC Casts WBC Casts Pathogenic Casts Other Casts Urine Mucus Urine Other Urine Trichomonas Urine Yeast Urine Sperm Ur Oval Fat Bodies Ur Culture Indicated? SARS-CoV-2, RNA, NAAT (NEGATIVE) 03/22/23 03/22/23 Range/Units 22:36 22:36 WBC (4.8-10.8) K/ul RBC (4.20-5.40) M/uL Hgb (12.0-16.0) g/dl Hct (37.0-47.0) % MCV (80.0-100.0) fL MCH (25.0-34.0) pg MCHC (32.0-36.0) g/dL RDW Std Deviation (36.4-46.3) fL RDW Coeff of Dia (11.5-14.5) % Plt Count (130-400) K/uL MPV (9.4-12.4) fL Immature Gran % (Auto) % Neut % (Auto) % Lymph % (Auto) % [place] % (Auto) % Eos % (Auto) % Baso % (Auto) % Neut # (Auto) (1.40-6.50) K/uL Lymph # (Auto) (1.2-3.4) K/uL [place] # (Auto) (0.11-0.59) K/uL Eos # (Auto) (0-0.50) K/uL Baso # (Auto) (0-0.2) K/uL Immature Gran # (Auto) (0.01-0.20) K/uL Sodium (136-145) mmol/L Potassium (3.5-5.1) mmol/L Chloride (98-107) mmol/L Carbon Dioxide (21-32) mmol/L Anion Gap (3-11) BUN (6-23) mg/dl Creatinine (0.6-1.2) mg/dl Est Cr Clr Drug Dosing Est GFR ( Amer) ml/min Est GFR (Non-Af Amer) ml/min BUN/Creatinine Ratio (10-20) Glucose (70-99(Fasting)) mg/dl Calcium (8.6-10.3) mg/dl Magnesium (1.7-2.4) mg/dl Total Bilirubin (0.2-1.0) mg/dl AST (13-39) U/L ALT (7-52) U/L Alkaline Phosphatase (34-104) U/L Troponin I High Sens (0-14) pg/ml Total Protein (6.0-8.3) gm/dl Albumin (3.4-5.0) gm/dl Globulin (2.5-4.0) gm/dl Albumin/Globulin Ratio (0.9-2) TSH (0.300-4.500) uIu/ml Urine Color Yellow Urine Appearance Clear (Clear) Urine pH 7.0 (4.5-7.5) Ur Specific [place] 1.010 (1.000-1.030) Urine Protein Negative (Negative) Urine Glucose (UA) Negative (Negative) Urine Ketones Negative (Negative) Urine Blood 1+ H (Negative) Urine Nitrite Negative (Negative) Urine Bilirubin Negative (Negative) Urine Urobilinogen Negative (Negative) Ur Leukocyte Esterase Trace H (Negative) Urine WBC (Auto) Cancelled Urine RBC (Auto) Cancelled U Hyaline Cast (Auto) Cancelled U Epithel Cells (Auto) Cancelled Urine Bacteria (Auto) Cancelled Ur Renal Epithelial Cell Cancelled Urine Crystals Cancelled Calcium Oxalate Crystal Cancelled Uric Acid Crystals Cancelled Triple Phos Crystals Cancelled Other Crystals Cancelled Amorphous Sediment Cancelled Granular Casts Cancelled Waxy Casts Cancelled RBC Casts Cancelled WBC Casts Cancelled Pathogenic Casts Cancelled Other Casts Cancelled Urine Mucus Cancelled Urine Other Cancelled Urine Trichomonas Cancelled Urine Yeast Cancelled Urine Sperm Cancelled Ur Oval Fat Bodies Cancelled Ur Culture Indicated? Cancelled SARS-CoV-2, RNA, NAAT NEGATIVE (NEGATIVE) Administered Medications Discontinued Medications Acetaminophen (Acetaminophen 325 Mg Tab) 650 mg PO NOW STA Stop: 03/22/23 22:45 Last Admin: 03/22/23 22:50 Dose: 650 mg Documented By: RIGOBERTO Hydralazine HCl (Hydralazine Hcl 20 Mg/Ml Vial) 5 mg IV NOW ONE Stop: 03/23/23 00:02 Last Admin: 03/23/23 00:36 Dose: 5 mg Documented By: FIDEL Sodium Chloride (Nss) 500 mls @ 999 mls/hr IV .Q31M JOE Stop: 03/22/23 22:30 Last Infusion: 03/22/23 23:56 Dose: 0 mls/hr Documented By: Admin: 03/22/23 22:51 Dose: 999 mls/hr Documented By: RIGOBERTO Ondansetron HCl (Ondansetron Inj 2 Mg/Ml 2 Ml Vial) 4 mg IV NOW STA Stop: 03/22/23 22:45 Last Admin: 03/22/23 22:51 Dose: 4 mg Documented By: RIGOBERTO Imaging Data Radiologist's Impression: Head CT 03/22/23 21:59 Exam(s): CT HEAD Without Contrast EXAM: CT Head Without Intravenous Contrast CLINICAL HISTORY: Reason for exam: confusion, speech difficulty. TECHNIQUE: Axial computed tomography images of the head/brain without intravenous contrast. CTDI is 37.08 mGy and DLP is 614.27 mGy-cm. Automated exposure control was utilized for the study. A dose lowering technique was utilized adhering to the principles of ALARA. COMPARISON: No relevant prior studies available. FINDINGS: No acute intracranial hemorrhage. No midline shift or mass effect. The territorial desouza-white matter differentiation is maintained throughout. Age-related cerebral volume loss. Periventricular and subcortical white matter hypoattenuation, consistent with chronic microangiopathy. The visualized orbits appear grossly unremarkable. The calvarium is intact. The visualized paranasal sinuses and mastoid air cells are grossly clear. IMPRESSION: No acute intracranial hemorrhage, midline shift, or mass effect. Electronically signed by: Kunal Godwin MD 03/22/23 23:15 PM Discharge Plan Visit Data Chief Complaint: TIA Symptoms Stated Complaint: SLURRED SPEECH,NUMBNESS R SIDE,SAME THING BEFORE ED Provider: Luis Enrique Puga Discharge Problem: Stroke-like symptom, A-fib, Hypertension, History of CVA (cerebrovascular accident) Patient Disposition: Admitted As Inpatient Discharge Instructions Interventions: ED Discharge Assessment Last Done: 03/23/23 01:27
[2023-03-22] MEDS ORDERED: SODIUM CHLORIDE 0.9% 500 ML IV SCH (22:00)
[2023-03-22 22:33] LABS: Basophils # (auto) 0.07 K/uL (0-0.2); Basophils % (auto) 0.6 %; Eosinophils # (auto) 0.27 K/uL (0-0.50); Eosinophils % (auto) 2.3 %; Immature Granulocytes # (auto) 0.03 K/uL (0.01-0.20); Immature Granulocytes % (auto) 0.3 %; Lymphocytes # (auto) 3.59 K/uL (1.2-3.4); Lymphocytes % (auto) 31.2 %; Mean Corpuscular Hemoglobin 30.6 pg (25.0-34.0); Mean Corpuscular Hgb Conc 33.3 g/dL (32.0-36.0); Mean Corpuscular Volume 91.9 fL (80.0-100.0); Mean Platelet Volume 11.1 fL (9.4-12.4); Monocytes # (auto) 1.02 K/uL (0.11-0.59); Monocytes % (auto) 8.9 %; Neutrophils # (auto) 6.53 K/uL (1.40-6.50); Neutrophils % (auto) 56.7 %; Platelet Count 206 K/uL (130-400); RDW Coefficient of Variation 13.8 % (11.5-14.5); RDW Standard Deviation 46.4 fL (36.4-46.3); Red Blood Count 4.57 M/uL (4.20-5.40); White Blood Count 11.51 K/ul (4.8-10.8)
[2023-03-22] MEDS ORDERED: ONDANSETRON INJ 2 MG/ML 2 ML VIAL IV STA (22:44)
[2023-03-22] MEDS ORDERED: ACETAMINOPHEN 325 MG TAB PO STA (22:44)
[2023-03-22 22:45] LABS: Alanine Aminotransferase 9 U/L (7-52); Albumin Globulin Ratio 1.3 (0.9-2); Albumin Level 3.9 gm/dl (3.4-5.0); Alkaline Phosphatase 56 U/L (34-104); Anion Gap 9 (3-11); Aspartate Aminotransferase 14 U/L (13-39); BUN Creatinine Ratio 22.1 (10-20); Bilirubin,Total 0.8 mg/dl (0.2-1.0); Blood Urea Nitrogen 15 mg/dl (6-23); Carbon Dioxide 28 mmol/L (21-32); Chloride 100 mmol/L (98-107); Est GFR (African American) 89.9 ml/min; Est GFR (Non-African American) 77.6 ml/min; Globulin 3.1 gm/dl (2.5-4.0); Glucose 88 mg/dl (70-99(Fasting)); Potassium 3.7 mmol/L (3.5-5.1); Sodium 137 mmol/L (136-145)
[2023-03-22 22:51] LABS: Troponin I High Sensitivity 7.8 pg/ml (0-14)
[2023-03-22 22:56] LABS: Appearance Urine Clear (Clear); Bilirubin Urine Negative (Negative); Blood Urine 1+ (Negative); Color Urine Yellow; Glucose Urine UA Negative (Negative); Ketones Urine Negative (Negative); Leukocyte Esterase Urine Trace (Negative); Nitrite Urine Negative (Negative); Protein Urine Negative (Negative); Urobilinogen Urine Negative (Negative)
--- NOTE | 2023-03-22 23:16 | CT Scan Report ---
Exam(s): CT HEAD Without Contrast EXAM: CT Head Without Intravenous Contrast CLINICAL HISTORY: Reason for exam: confusion, speech difficulty. TECHNIQUE: Axial computed tomography images of the head/brain without intravenous contrast. CTDI is 37.08 mGy and DLP is 614.27 mGy-cm. Automated exposure control was utilized for the study. A dose lowering technique was utilized adhering to the principles of ALARA. COMPARISON: No relevant prior studies available. FINDINGS: No acute intracranial hemorrhage. No midline shift or mass effect. The territorial desouza-white matter differentiation is maintained throughout. Age-related cerebral volume loss. Periventricular and subcortical white matter hypoattenuation, consistent with chronic microangiopathy. The visualized orbits appear grossly unremarkable. The calvarium is intact. The visualized paranasal sinuses and mastoid air cells are grossly clear. IMPRESSION: No acute intracranial hemorrhage, midline shift, or mass effect. Electronically signed by: Kunal Godwin MD 03/22/23 23:15 PM
[2023-03-23] MEDS ORDERED: hydrALAZINE HCL 20 MG/ML VIAL IV ONE (00:01)
[2023-03-23] MEDS ORDERED: ALBUTEROL HFA 8 GM INHALER INH PRN (01:33)
--- NOTE | 2023-03-23 03:08 | History & Physical Report ---
Date of Service March 23, 2023 Assessment & Plan (1) TIA (transient ischemic attack): Plan: 88-year-old female with history of hypertension, prediabetes, atrial fibrillation on Eliquis anticoagulation with recent admission for TIAright- sided neurological symptoms which resolved. Work-up with no acute CVA found. Patient returns with similar symptomsright-sided numbness/tingling/weakness as well as confusion and slurred speech. Presently with no neurological findings. Patient reports she is back to baseline. Is resting comfortably and wants to go home Differential includes TIA, possibly hypertensive emergency given patient's elevated blood pressure in the ER, possibly seizure. Admit to medical with telemetry Neurochecks Continue aspirin 81 mg p.o. daily Continue atorvastatin 40 mg p.o. daily Neurology consultation appreciated We will defer repeat MRI or EEG for now (2) Hypertension: Plan: Patient with markedly elevated blood pressure presently 190/110. She was administered hydralazine in the ER Continue losartan Consider adding additional blood pressure agent. Patient had been on hydrochlorothiazide which has recently been discontinued due to hyponatremia (3) A-fib: Plan: Rate controlled. Patient anticoagulated on apixaban Continue apixaban 5 mg p.o. twice daily Continue to monitor Admission and Anticipated Discharge Date Admission Date: March 23, 2023 History of Present Illness Chief Complaint: Right-sided numbness, weakness, slurred speech and confusion Primary Care Provider: Zaina Waddell MD Abbie Rob is an 88-year-old female with history of atrial fibrillation on Eliquis, hypertension, prior CVA presenting with right-sided numbness, tingling and weakness as well as slurred speech and confusion which occurred earlier tonight. Patient was just admitted from 03/21/2023 to 03/22/2023 with similar symptoms. She had a stroke work-up to include CT of the head with global parenchymal volume loss with chronic microvascular ischemic changes and chronic lacunar infarct of the head of the left caudate nucleus. CTA head and CTA neck unremarkable Brain MRI with old punctate lacunar infarct in the left caudate head. Echocardiogram unremarkable Patient was discharged on aspirin 81 mg p.o. daily and atorvastatin 40 mg p.o. daily This evening around 2029 she was using a curling iron on her hair when she developed right hand numbness, confusion and slurred speech as well as frontal headache. In the ER she is afebrile, hypertensive, no acute distress. Neurological symptoms have resolved. Patient with no acute complaints at this time. ER course: Tylenol Hydralazine Zofran Normal saline Allergies Allergy/AdvReac Type Severity Reaction Status Date / Time phenazopyridine AdvReac Unknown HEADACHE, Verified 03/22/23 22:02 VISUAL PROBLEMS Home Medications Medication Instructions Recorded Confirmed Type latanoprost 0.005 % eye drops 1 drops OPB HS 06/20/19 03/22/23 History albuterol sulfate 90 mcg/actuation 1 inh inhalation QID PRN shortness 12/06/22 03/22/23 Rx aerosol inhaler of breath or wheezing #8.5 grams budesonide-formoterol HFA 160 2 puff inhalation BID #10.2 grams 01/01/23 03/22/23 Rx mcg-4.5 mcg/actuation aerosol inhaler (Symbicort) apixaban 5 mg tablet 5 mg PO BID #180 tabs 01/02/23 03/22/23 Rx losartan 50 mg tablet 50 mg PO BID #180 tabs 03/09/23 03/22/23 Rx brimonidine 0.1 % eye drops 1 drp OPB BID 03/21/23 03/22/23 History (Alphagan P) aspirin 81 mg tablet,delayed 81 mg PO QAM #30 tabs 03/22/23 03/22/23 Rx release atorvastatin 40 mg tablet 40 mg PO DAILY #30 tabs 03/22/23 03/22/23 Rx Past Med/Surg History Medical History A-fib Asthma Closed rib fracture History of CVA (cerebrovascular accident) Hypertension Prediabetes TIA (transient ischemic attack) Surgical History No pertinent past surgical history Family History Grandfather (Maternal) Stroke Heart disease Hypertension Mother Hypertension Heart disease Diabetes Father Heart disease Hypertension Sister Diabetes Denies family history of Ovarian cancer Prostate cancer Myocardial infarction Breast cancer Lung cancer Colorectal cancer Social History Smoking Status: Former smoker Tobacco Type: Cigarettes Age Started Using Tobacco: 18; Age Quit Using Tobacco: 49; packs per day: 0.10; Second Hand Exposure: Yes; Do You Dip or Chew Tobacco: No; Hx Alcohol Use: No Hx Substance Use: No Preferred Language: Cypriot Communication Ability: Effective Communication Ability Comment: New stroke symptoms Visual Impairment: Limited Hearing Ability: Use of Hearing Aid Rn Icu Required: No Beliefs That Will Affect Care: None marital status: / Current Living Situation: Family Current Living Situation Comment: lives with daughter Feels Safe at Home: Yes Childhood Exposure to Second-Hand Smoke: Yes (parents) Diet: regular Dental Care, Regularly: Yes Seatbelt Use: always Sunscreen Use: Yes Assistive Devices: Cane and Glasses Review of Systems Review of Systems: All systems reviewed & are unremarkable except as noted in HPI & below Physical Exam Physical Exam: General: patient resting comfortably, NAD, non-toxic in appearance, AA&O x 4 Skin: warm, dry, intact, no rashes or lesions HEENT: NC/AT, PERRL, EOMI, anicteric sclera, conjunctiva without injection, external ear normal to inspection and nontender, nares patent, moist mucus membranes, dentition intact, no oropharyngeal lesions, neck supple, trachea midline, no LAD, no thyromegaly, no JVD Heart: +S1/S2, irregularly irregular, no m/r/g Lungs: equal air entry bilaterally, no rales/rhonchi/wheezes Abd: +BS, soft, NT/ND, no masses/organomegaly/ascites Ext: warm, 2+ pulses in UE/LE bilaterally, no clubbing/cyanosis or edema Neuro: nonfocal, patient AA&O x 4, speech intact, no facial droop, moving all extremities on command with equal strength 5/5 Results & Data Results & Data Vital Signs (Past 12 Hours) Vital Signs Temp Pulse Resp BP Pulse Ox O2 Del Method 03/23/23 01:49 81 03/23/23 00:33 93 H 17 190/110 H 91 03/23/23 00:00 79 17 203/105 H 91 03/22/23 23:48 78 17 199/114 H 93 03/22/23 23:01 76 16 201/122 H 92 03/22/23 23:01 201/122 H 03/22/23 22:36 79 14 169/84 H 92 03/22/23 22:38 92 Room Air 03/22/23 21:54 70 03/22/23 21:32 36.9 C 74 19 153/83 H 93 Room Air Laboratory Results Laboratory Results WBC 11.51 K/ul (4.8-10.8) H 03/22/23 22:00 RBC 4.57 M/uL (4.20-5.40) 03/22/23 22:00 Hgb 14.0 g/dl (12.0-16.0) 03/22/23 22:00 Hct 42.0 % (37.0-47.0) 03/22/23 22:00 MCV 91.9 fL (80.0-100.0) 03/22/23 22:00 MCH 30.6 pg (25.0-34.0) 03/22/23 22:00 MCHC 33.3 g/dL (32.0-36.0) 03/22/23 22:00 RDW Std Deviation 46.4 fL (36.4-46.3) H 03/22/23 22:00 RDW Coeff of Dia 13.8 % (11.5-14.5) 03/22/23 22:00 Plt Count 206 K/uL (130-400) 03/22/23 22:00 MPV 11.1 fL (9.4-12.4) 03/22/23 22:00 Immature Gran % (Auto) 0.3 % 03/22/23 22:00 Neut % (Auto) 56.7 % 03/22/23 22:00 Lymph % (Auto) 31.2 % 03/22/23 22:00 [place] % (Auto) 8.9 % 03/22/23 22:00 Eos % (Auto) 2.3 % 03/22/23 22:00 Baso % (Auto) 0.6 % 03/22/23 22:00 Neut # (Auto) 6.53 K/uL (1.40-6.50) H 03/22/23 22:00 Lymph # (Auto) 3.59 K/uL (1.2-3.4) H 03/22/23 22:00 [place] # (Auto) 1.02 K/uL (0.11-0.59) H 03/22/23 22:00 Eos # (Auto) 0.27 K/uL (0-0.50) 03/22/23 22:00 Baso # (Auto) 0.07 K/uL (0-0.2) 03/22/23 22:00 Immature Gran # (Auto) 0.03 K/uL (0.01-0.20) 03/22/23 22:00 Sodium 137 mmol/L (136-145) 03/22/23 22:00 Potassium 3.7 mmol/L (3.5-5.1) 03/22/23 22:00 Chloride 100 mmol/L (98-107) 03/22/23 22:00 Carbon Dioxide 28 mmol/L (21-32) 03/22/23 22:00 Anion Gap 9 (3-11) 03/22/23 22:00 BUN 15 mg/dl (6-23) 03/22/23 22:00 Creatinine 0.68 mg/dl (0.6-1.2) 03/22/23 22:00 Est Cr Clr Drug Dosing Not Reportable 03/22/23 22:00 Est GFR ( Amer) 89.9 ml/min 03/22/23 22:00 Est GFR (Non-Af Amer) 77.6 ml/min 03/22/23 22:00 BUN/Creatinine Ratio 22.1 (10-20) H 03/22/23 22:00 Glucose 88 mg/dl (70-99(Fasting)) 03/22/23 22:00 Calcium 9.0 mg/dl (8.6-10.3) 03/22/23 22:00 Magnesium 2.0 mg/dl (1.7-2.4) 03/22/23 22:00 Total Bilirubin 0.8 mg/dl (0.2-1.0) 03/22/23 22:00 AST 14 U/L (13-39) 03/22/23 22:00 ALT 9 U/L (7-52) 03/22/23 22:00 Alkaline Phosphatase 56 U/L (34-104) 03/22/23 22:00 Troponin I High Sens 7.8 pg/ml (0-14) 03/22/23 22:00 Total Protein 7.0 gm/dl (6.0-8.3) 03/22/23 22:00 Albumin 3.9 gm/dl (3.4-5.0) 03/22/23 22:00 Globulin 3.1 gm/dl (2.5-4.0) 03/22/23 22:00 Albumin/Globulin Ratio 1.3 (0.9-2) 03/22/23 22:00 TSH 3.381 uIu/ml (0.300-4.500) 03/22/23 22:00 Urine Color Yellow 03/22/23 22:36 Urine Appearance Clear (Clear) 03/22/23 22:36 Urine pH 7.0 (4.5-7.5) 03/22/23 22:36 Ur Specific [place] 1.010 (1.000-1.030) 03/22/23 22:36 Urine Protein Negative (Negative) 03/22/23 22:36 Urine Glucose (UA) Negative (Negative) 03/22/23 22:36 Urine Ketones Negative (Negative) 03/22/23 22:36 Urine Blood 1+ (Negative) H 03/22/23 22:36 Urine Nitrite Negative (Negative) 03/22/23 22:36 Urine Bilirubin Negative (Negative) 03/22/23 22:36 Urine Urobilinogen Negative (Negative) 03/22/23 22:36 Ur Leukocyte Esterase Trace (Negative) H 03/22/23 22:36 Urine WBC (Auto) Cancelled 03/22/23 22:36 Urine RBC (Auto) Cancelled 03/22/23 22:36 U Hyaline Cast (Auto) Cancelled 03/22/23 22:36 U Epithel Cells (Auto) Cancelled 03/22/23 22:36 Urine Bacteria (Auto) Cancelled 03/22/23 22:36 Ur Renal Epithelial Cell Cancelled 03/22/23 22:36 Urine Crystals Cancelled 03/22/23 22:36 Calcium Oxalate Crystal Cancelled 03/22/23 22:36 Uric Acid Crystals Cancelled 03/22/23 22:36 Triple Phos Crystals Cancelled 03/22/23 22:36 Other Crystals Cancelled 03/22/23 22:36 Amorphous Sediment Cancelled 03/22/23 22:36 Granular Casts Cancelled 03/22/23 22:36 Waxy Casts Cancelled 03/22/23 22:36 RBC Casts Cancelled 03/22/23 22:36 WBC Casts Cancelled 03/22/23 22:36 Pathogenic Casts Cancelled 03/22/23 22:36 Other Casts Cancelled 03/22/23 22:36 Urine Mucus Cancelled 03/22/23 22:36 Urine Other Cancelled 03/22/23 22:36 Urine Trichomonas Cancelled 03/22/23 22:36 Urine Yeast Cancelled 03/22/23 22:36 Urine Sperm Cancelled 03/22/23 22:36 Ur Oval Fat Bodies Cancelled 03/22/23 22:36 Ur Culture Indicated? Cancelled 03/22/23 22:36 SARS-CoV-2, RNA, NAAT NEGATIVE (NEGATIVE) 03/22/23 22:[address] 03/22/23 21:59 Exam(s): CT HEAD Without Contrast EXAM: CT Head Without Intravenous Contrast CLINICAL HISTORY: Reason for exam: confusion, speech difficulty. TECHNIQUE: Axial computed tomography images of the head/brain without intravenous contrast. CTDI is 37.08 mGy and DLP is 614.27 mGy-cm. Automated exposure control was utilized for the study. A dose lowering technique was utilized adhering to the principles of ALARA. COMPARISON: No relevant prior studies available. FINDINGS: No acute intracranial hemorrhage. No midline shift or mass effect. The territorial desouza-white matter differentiation is maintained throughout. Age-related cerebral volume loss. Periventricular and subcortical white matter hypoattenuation, consistent with chronic microangiopathy. The visualized orbits appear grossly unremarkable. The calvarium is intact. The visualized paranasal sinuses and mastoid air cells are grossly clear. IMPRESSION: No acute intracranial hemorrhage, midline shift, or mass effect. Electronically signed by: Kunal Godwin MD 03/22/23 23:15 PM PG Care Time/CCT Total # of Minutes Spent Total Time Spent with Patient: Total time spent is greater than 50% in coordination of care (as documented) at patient's floor/unit and/or counseling patient: Coding Level of Care Code 93588 INT INP/OBS CARE 2/55MIN Diagnoses TIA (transient ischemic attack) G45.9 Hypertension I10 Hypertension type: unspecified A-fib I48.91 Atrial fibrillation type: unspecified (2) Hypertension Hypertension type: unspecified Qualified Code(s): I10 - Essential (primary) hypertension (3) A-fib Atrial fibrillation type: unspecified Qualified Code(s): I48.91 - Unspecified atrial fibrillation
[2023-03-23] MEDS ORDERED: cloNIDine HCL 0.1 MG TAB PO PRN (03:24)
--- NOTE | 2023-03-23 08:04 | XRay Report ---
XR chest 1V portable HISTORY: weakness COMPARISON: Chest 11/26/2022. FINDINGS: No pneumothorax. No pleural effusions. The cardiac silhouette is mildly enlarged. This josefa ins unchanged. Small linear scarlike density within left midlung zone again noted. No new focal lung consolidations to suggest a pneumonia. No evidence for pulmonary edema. Mild interstitial thickening remains unchanged. This is likely chronic. Scoliosis again noted. IMPRESSION: No significant change compared to the prior study. No acute process. ACT 112: Negative or not required by law. Electronically signed by: Shahab Kim M.D. 03/23/2023 8:02 AM
[2023-03-23] MEDS: ATORVASTATIN 40 MG TAB PO SCH (10:16)
[2023-03-23] MEDS: LOSARTAN POTASSIUM 50 MG TAB PO SCH ×2 (10:16→22:05)
[2023-03-23] MEDS: ASPIRIN 81 MG ECTAB PO SCH (10:17)
[2023-03-23] MEDS: APIXABAN 5 MG TABLET PO SCH ×2 (10:17→22:06)
[2023-03-23] MEDS: FLUTICASONE/VILANTEROL 100/25MCG 14 PUFFS/INHALER INH SCH (10:17)
--- NOTE | 2023-03-23 15:50 | Neurology Consultation ---
Date of Consultation March 23, 2023 Assessment & Plan (1) Stroke-like symptom: Impression: The patient has had 2 similar episodes of right-sided numbness and speech disturbance, lasting for 1 to 2 hours. Brain MRI was negative for acute cerebrovascular accident but showed chronic small vessel disease related ischemic changes including left parietal and basal ganglia lacunar infarcts. Recrudescence of old stroke related symptoms and partial seizures are in differential. Recommendations: There is no indication for repeat MRI, or additional stroke work-up including CT angiography's and echocardiogram at this time. EEG to evaluate for epileptogenic activity. We should keep the patient on the same medications including Eliquis, low-dose aspirin, and statin. Monitoring blood pressure. If the patient stays stable, she can be discharged home after EEG evaluation. Follow-up with neurology clinic in a month. I will contact with [facility] neurology to set up an appointment. (2) History of CVA (cerebrovascular accident): Impression: The patient has remote history of cerebrovascular accident. She has had TIA-like symptoms over the years. She was just discharged after stroke work-up. (3) Paroxysmal atrial fibrillation: Impression: The patient has been treated on Eliquis. Plan Thank you for the consultation. History of Present Illness Reason for Consultation: Stroke like symptoms Requesting Physician: Tyesha Godfrey MD Attending Physician: Tyesha Godfrey MD History of Present Illness The patient is a 88-year-old right-handed female, who was brought to emergency department yesterday evening, after the patient experienced right facial and hand numbness, as well as speech disturbance and confusion. The patient was ready to go to bed yesterday evening, and while brushing her hair and noticed right hand, and right lower facial decreased sensation. According to recruiting coordinator, the patient's speech was somewhat slurred, and she was also confused. Symptoms resolved in 2 hours. She was taken to emergency department. Her blood pressure was higher than usual. She was not considered a candidate for thrombolytic treatment as she has been on Eliquis. Apparently, she was recently hospitalized for the similar symptoms, and head CT, CT angiogram of head and neck, and echocardiogram were unremarkable. The patient was discharged home on Eliquis, with added low-dose aspirin, and increased dose of statin. She has history of cerebrovascular accident and TIA symptoms. She has been treated on Eliquis for atrial fibrillation. Brain MRI was repeated yesterday, which showed no acute cerebrovascular accident but chronic, small vessel disease related subcortical ischemic changes and chronic lacunar infarcts old left basal ganglia and left parietal region. The patient has stayed symptom-free since yesterday evening. Laboratory work-up did not show significant abnormality including electrolyte imbalance or infectious process. The patient denies having seizure or seizure- like activities in the past. I have reviewed the patient's chart including imaging studies. I have personally visualized imaging studies. I have answered the patient's questions in detail. Allergies Allergy/AdvReac Type Severity Reaction Status Date / Time phenazopyridine AdvReac Unknown HEADACHE, Verified 03/22/23 22:02 VISUAL PROBLEMS Home Medications Medication Instructions Recorded Confirmed Type latanoprost 0.005 % eye drops 1 drops OPB HS 06/20/19 03/22/23 History albuterol sulfate 90 mcg/actuation 1 inh inhalation QID PRN shortness 12/06/22 03/22/23 Rx aerosol inhaler of breath or wheezing #8.5 grams budesonide-formoterol HFA 160 2 puff inhalation BID #10.2 grams 01/01/23 03/22/23 Rx mcg-4.5 mcg/actuation aerosol inhaler (Symbicort) apixaban 5 mg tablet 5 mg PO BID #180 tabs 01/02/23 03/22/23 Rx losartan 50 mg tablet 50 mg PO BID #180 tabs 03/09/23 03/22/23 Rx brimonidine 0.1 % eye drops 1 drp OPB BID 03/21/23 03/22/23 History (Alphagan P) aspirin 81 mg tablet,delayed 81 mg PO QAM #30 tabs 03/22/23 03/22/23 Rx release atorvastatin 40 mg tablet 40 mg PO DAILY #30 tabs 03/22/23 03/22/23 Rx Patient History Medical History A-fib Asthma Closed rib fracture History of CVA (cerebrovascular accident) Hypertension Prediabetes TIA (transient ischemic attack) Surgical History No pertinent past surgical history Family History Grandfather (Maternal) Stroke Heart disease Hypertension Mother Hypertension Heart disease Diabetes Father Heart disease Hypertension Sister Diabetes Denies family history of Ovarian cancer Prostate cancer Myocardial infarction Breast cancer Lung cancer Colorectal cancer Social History Smoking Status: Former smoker Tobacco Type: Cigarettes Age Started Using Tobacco: 18; Age Quit Using Tobacco: 49; packs per day: 0.10; Second Hand Exposure: Yes; Do You Dip or Chew Tobacco: No; Hx Alcohol Use: No Hx Substance Use: No Preferred Language: French Communication Ability: Effective Communication Ability Comment: New stroke symptoms Visual Impairment: Limited Hearing Ability: Use of Hearing Aid Blindmaker Required: No Beliefs That Will Affect Care: None marital status: / Current Living Situation: Family Current Living Situation Comment: with daughter Feels Safe at Home: Yes Safety Concerns: Feels Safe At This Time Childhood Exposure to Second-Hand Smoke: Yes (parents) Diet: regular Dental Care, Regularly: Yes Seatbelt Use: always Sunscreen Use: Yes Assistive Devices: Cane, Denture - Upper, Glasses and Hearing Aid - Bilateral Review of Systems Review of Systems: All systems reviewed & are unremarkable except as noted in HPI & below Physical Exam Physical Exam: General Examination: Constitutional: Well developed person in no acute distress. HENT: Normal exam with inspection. CV: Hearth rhythm is irregular. Neck: Supple, no carotid bruits. Lungs: Non-labored and comfortable breathing. Abdomen: Soft, non-tender, non-distended. Skin: No rash or ecchymosis. Extremities: No edema or cyanosis NEUROLOGICAL EXAMINATION: Mental Status: Alert and oriented to place, person and time. Cranial Nerves: II-XII are intact except bilateral SNHI. No nystagmus. Funduscopy: Normal looking optic discs. Motor: 5-/5 in all extremities without asymmetry. Tone: Normal without spasticity or rigidity. Sensory: Intact to all sensory modalities excerpt decreased vibratory sensation in feet. Coordination: No dysmetria with FTN testing. Speech: Fluent. Comprehension is intact. Gait: Slightly wide-based. No ataxia or abnormal walking pattern. Musculoskeletal: Normal muscle bulk, no atrophy. DTRs: 2+ in upper extremities and 1 + in lower extremities symmetrically. Plantar reflexes are bilaterally downgoing. Results & Data Vital Signs (Past 12 Hours) Vital Signs Pulse Pulse Resp BP BP Pulse Ox O2 Del Method 03/23/23 14:34 78 17 91 03/23/23 14:34 137/73 03/23/23 14:33 82 20 03/23/23 10:22 124/79 03/23/23 08:08 87 18 95 03/23/23 08:00 73 15 99 03/23/23 08:00 161/90 H 03/23/23 07:00 75 14 03/23/23 07:00 155/90 H 03/23/23 14:32 81 20 137/73 91 Room Air 03/23/23 10:21 18 124/79 91 Room Air 03/23/23 07:25 22 97 Nasal Cannula 03/23/23 06:54 73 03/23/23 06:30 90 21 138/85 91 03/23/23 05:30 69 15 156/79 H 90 03/23/23 05:00 74 19 142/82 H 90 03/23/23 04:30 72 22 168/80 H 100 03/23/23 04:00 72 16 147/81 H 96 O2 Flow Rate 03/23/23 14:34 03/23/23 14:34 03/23/23 14:33 03/23/23 10:22 03/23/23 08:08 03/23/23 08:00 03/23/23 08:00 03/23/23 07:00 03/23/23 07:00 03/23/23 14:32 03/23/23 10:21 03/23/23 07:25 2 03/23/23 06:54 03/23/23 06:30 03/23/23 05:30 03/23/23 05:00 03/23/23 04:30 03/23/23 04:00 Laboratory Results Laboratory Results - last 24 hr 03/22/23 03/22/23 03/22/23 22:00 22:00 22:00 WBC 11.51 H RBC 4.57 Hgb 14.0 Hct 42.0 MCV 91.9 MCH 30.6 MCHC 33.3 RDW Std Deviation 46.4 H RDW Coeff of Dia 13.8 Plt Count 206 MPV 11.1 Immature Gran % (Auto) 0.3 Neut % (Auto) 56.7 Lymph % (Auto) 31.2 [place] % (Auto) 8.9 Eos % (Auto) 2.3 Baso % (Auto) 0.6 Neut # (Auto) 6.53 H Lymph # (Auto) 3.59 H [place] # (Auto) 1.02 H Eos # (Auto) 0.27 Baso # (Auto) 0.07 Immature Gran # (Auto) 0.03 Sodium 137 Potassium 3.7 Chloride 100 Carbon Dioxide 28 Anion Gap 9 BUN 15 Creatinine 0.68 Est Cr Clr Drug Dosing Not Reportable Est GFR ( Amer) 89.9 Est GFR (Non-Af Amer) 77.6 BUN/Creatinine Ratio 22.1 H Glucose 88 Calcium 9.0 Magnesium 2.0 Total Bilirubin 0.8 AST 14 ALT 9 Alkaline Phosphatase 56 Troponin I High Sens 7.8 Total Protein 7.0 Albumin 3.9 Globulin 3.1 Albumin/Globulin Ratio 1.3 TSH 3.381 Urine Color Urine Appearance Urine pH Ur Specific [place] Urine Protein Urine Glucose (UA) Urine Ketones Urine Blood Urine Nitrite Urine Bilirubin Urine Urobilinogen Ur Leukocyte Esterase Urine WBC (Auto) Urine RBC (Auto) U Hyaline Cast (Auto) U Epithel Cells (Auto) Urine Bacteria (Auto) Ur Renal Epithelial Cell Urine Crystals Calcium Oxalate Crystal Uric Acid Crystals Triple Phos Crystals Other Crystals Amorphous Sediment Granular Casts Waxy Casts RBC Casts WBC Casts Pathogenic Casts Other Casts Urine Mucus Urine Other Urine Trichomonas Urine Yeast Urine Sperm Ur Oval Fat Bodies Ur Culture Indicated? SARS-CoV-2, RNA, NAAT 03/22/23 03/22/23 22:36 22:36 WBC RBC Hgb Hct MCV MCH MCHC RDW Std Deviation RDW Coeff of Dia Plt Count MPV Immature Gran % (Auto) Neut % (Auto) Lymph % (Auto) [place] % (Auto) Eos % (Auto) Baso % (Auto) Neut # (Auto) Lymph # (Auto) [place] # (Auto) Eos # (Auto) Baso # (Auto) Immature Gran # (Auto) Sodium Potassium Chloride Carbon Dioxide Anion Gap BUN Creatinine Est Cr Clr Drug Dosing Est GFR ( Amer) Est GFR (Non-Af Amer) BUN/Creatinine Ratio Glucose Calcium Magnesium Total Bilirubin AST ALT Alkaline Phosphatase Troponin I High Sens Total Protein Albumin Globulin Albumin/Globulin Ratio TSH Urine Color Yellow Urine Appearance Clear Urine pH 7.0 Ur Specific [place] 1.010 Urine Protein Negative Urine Glucose (UA) Negative Urine Ketones Negative Urine Blood 1+ H Urine Nitrite Negative Urine Bilirubin Negative Urine Urobilinogen Negative Ur Leukocyte Esterase Trace H Urine WBC (Auto) Cancelled Urine RBC (Auto) Cancelled U Hyaline Cast (Auto) Cancelled U Epithel Cells (Auto) Cancelled Urine Bacteria (Auto) Cancelled Ur Renal Epithelial Cell Cancelled Urine Crystals Cancelled Calcium Oxalate Crystal Cancelled Uric Acid Crystals Cancelled Triple Phos Crystals Cancelled Other Crystals Cancelled Amorphous Sediment Cancelled Granular Casts Cancelled Waxy Casts Cancelled RBC Casts Cancelled WBC Casts Cancelled Pathogenic Casts Cancelled Other Casts Cancelled Urine Mucus Cancelled Urine Other Cancelled Urine Trichomonas Cancelled Urine Yeast Cancelled Urine Sperm Cancelled Ur Oval Fat Bodies Cancelled Ur Culture Indicated? Cancelled SARS-CoV-2, RNA, NAAT NEGATIVE Diagnostic Findings Chest X-Ray 03/22/23 21:59 XR chest 1V portable HISTORY: weakness COMPARISON: Chest 11/26/2022. FINDINGS: No pneumothorax. No pleural effusions. The cardiac silhouette is mildly enlarged. This remains unchanged. Small linear scarlike density within left midlung zone again noted. No new focal lung consolidations to suggest a pneumonia. No evidence for pulmonary edema. Mild interstitial thickening remains unchanged. This is likely chronic. Scoliosis again noted. IMPRESSION: No significant change compared to the prior study. No acute process. ACT 112: Negative or not required by law. Electronically signed by: Shahab Kim M.D. 03/23/2023 8:[address] 03/22/23 21:59 Exam(s): CT HEAD Without Contrast EXAM: CT Head Without Intravenous Contrast CLINICAL HISTORY: Reason for exam: confusion, speech difficulty. TECHNIQUE: Axial computed tomography images of the head/brain without intravenous contrast. CTDI is 37.08 mGy and DLP is 614.27 mGy-cm. Automated exposure control was utilized for the study. A dose lowering technique was utilized adhering to the principles of ALARA. COMPARISON: No relevant prior studies available. FINDINGS: No acute intracranial hemorrhage. No midline shift or mass effect. The territorial desouza-white matter differentiation is maintained throughout. Age-related cerebral volume loss. Periventricular and subcortical white matter hypoattenuation, consistent with chronic microangiopathy. The visualized orbits appear grossly unremarkable. The calvarium is intact. The visualized paranasal sinuses and mastoid air cells are grossly clear. IMPRESSION: No acute intracranial hemorrhage, midline shift, or mass effect. Electronically signed by: Kunal Godwin MD 03/22/23 23:15 PM Brain MRI WITHOUT CONTRAST HISTORY: Right arm weakness. New onset stroke like symptoms TECHNIQUE: Multiplanar multisequence MRI of the brain was performed without the use of contrast. COMPARISON STUDY: Head CT 03/21/2023. Brain MRI 10/28/2020. FINDINGS: There is no mass, hematoma, midline shift, or acute infarct. The paranasal sinuses are clear. The mastoid air cells are clear. The ventricles and sulci demonstrate mild age-related involutional changes. Scattered foci of T2 hyperintensity seen within the periventricular and subcortical white matter are nonspecific but suggestive of moderate microvascular ischemic changes. This is similar to the prior study. The major vascular flow voids at the skull base are well-maintained. Prior bilateral lens replacement. There is an old punctate lacunar infarct seen within the left caudate head, unchanged. IMPRESSION: No significant change compared to the prior study. No acute intracranial abnormality. ACT 112: Negative or not required by law. Electronically signed by: Shahab Kim M.D. 03/22/2023 1:36 PM
--- NOTE | 2023-03-23 16:40 | History & Physical Bridge Note ---
Date of Service March 23, 2023 History & Physical Bridge Note I have examined the patient, reviewed the History & Physical and in the interval since the performance of the History & Physical I have noted the following changes of clinical significance: Patient known to me as I discharged her the day prior for TIA/stroke work-up. She presented with the exact same symptoms this admission and they have resolved. I did see her early this afternoon for a brief period of right hand and right nasolabial fold sensation of numbness. No weakness or confusion, no expressive aphasia. No weakness anywhere. Did have a headache this morning when blood pressures were quite high but that is now resolved. Discussed her care with her daughter at the bedside as well as the neurologist. Vitals reviewed Gen: AAOx3, NAD HEENT: Anicteric sclerae, EOMI, PERRLA CV: Irregularly irregular rhythm no mgr nl S1S2 Pulm: CTAB no wcr Abd: +BS soft NT ND no masses or hernias Ext: No edema, 2+ DP pulses Skin: No rashes, warm/dry Neuro: Full strength throughout, sensation intact throughout upper and lower extremities, cranial nerves II through XII intact 88-year-old female here with recurrent right-sided sensory deficits and hypertensive urgency admitted on the same day that she was discharged for TIA/stroke work-up. MRI of the brain from 03/22 negative for acute stroke but does show old small strokes on the left side-perhaps intermittent symptoms of sensory deficits could be recrudescence of previous stroke effects? Could be partial seizures-EEG ordered by neurology Question if could be complicated migraine? Continue Eliquis which she was on previously for atrial fibrillation Continue aspirin as well as high intensity statin all started during the most recent admission Appreciate neurology consultation Blood pressures are much better controlled now-continue home losartan 50 Mg p.o. twice daily
[2023-03-23] MEDS ORDERED: LATANOPROST 0.005% OP SOLN 2.5 ML BTL OPB SCH (21:00)
--- NOTE | 2023-03-23 21:45 | Electrocardiogram Report ---
Test Reason : Blood Pressure : / mmHG Vent. Rate : 077 BPM Atrial Rate : 000 BPM P-R Int : 000 ms QRS Dur : 088 ms QT Int : 388 ms P-R-T Axes : 000 025 081 degrees QTc Int : 439 ms Atrial fibrillation Low voltage QRS Septal infarct (cited on or before 10-OCT-2011) Abnormal ECG When compared with ECG of 21-MAR-2023 20:24, Premature ventricular complexes are no longer Present Nonspecific T wave abnormality no longer evident in Inferior leads Confirmed by Law Mendez [id number]) on 03/23/2023 9:45:10 PM Referred By: REFERRED SELF Confirmed By:Law Mendez
[2023-03-24] MEDS: FLUTICASONE/VILANTEROL 100/25MCG 14 PUFFS/INHALER INH SCH (08:35)
[2023-03-24] MEDS: APIXABAN 5 MG TABLET PO SCH (08:35)
[2023-03-24] MEDS: ASPIRIN 81 MG ECTAB PO SCH (08:36)
[2023-03-24] MEDS: LOSARTAN POTASSIUM 50 MG TAB PO SCH (08:36)
[2023-03-24] MEDS: ATORVASTATIN 40 MG TAB PO SCH (08:36)
--- NOTE | 2023-03-24 12:51 | Electroencephalogram ---
EEG Procedure Note Date of Service March 24, 2023 Start / End Times Start Time: 09:28 End Time: 09:48 Referring Physician Jaelyn Tai History Stroke like symptoms. Home Medication List Medication Instructions Recorded Confirmed Type latanoprost 0.005 % eye drops 1 drops OPB HS 06/20/19 03/22/23 History albuterol sulfate 90 mcg/actuation 1 inh inhalation QID PRN shortness 12/06/22 03/22/23 Rx aerosol inhaler of breath or wheezing #8.5 grams budesonide-formoterol HFA 160 2 puff inhalation BID #10.2 grams 01/01/23 03/22/23 Rx mcg-4.5 mcg/actuation aerosol inhaler (Symbicort) apixaban 5 mg tablet 5 mg PO BID #180 tabs 01/02/23 03/22/23 Rx losartan 50 mg tablet 50 mg PO BID #180 tabs 03/09/23 03/22/23 Rx brimonidine 0.1 % eye drops 1 drp OPB BID 03/21/23 03/22/23 History (Alphagan P) aspirin 81 mg tablet,delayed 81 mg PO QAM #30 tabs 03/22/23 03/22/23 Rx release atorvastatin 40 mg tablet 40 mg PO DAILY #30 tabs 03/22/23 03/22/23 Rx Inpatient Medication List Apixaban (Apixaban 5 Mg Tablet) 5 mg PO BID [facility] Stop: 04/22/23 08:59 Last Admin: 03/24/23 08:35 Dose: 5 mg Documented By: Admin: 03/23/23 22:06 Dose: 5 mg Documented By: Admin: 03/23/23 10:17 Dose: 5 mg Documented By: FRANCY Aspirin (Aspirin 81 Mg Ectab) 81 mg PO QAM [facility] Stop: 04/22/23 08:59 Last Admin: 03/24/23 08:36 Dose: 81 mg Documented By: Admin: 03/23/23 10:17 Dose: 81 mg Documented By: FRANCY Atorvastatin Calcium (Atorvastatin 40 Mg Tab) 40 mg PO DAILY [facility] Stop: 04/22/23 08:59 Last Admin: 03/24/23 08:36 Dose: 40 mg Documented By: Admin: 03/23/23 10:16 Dose: 40 mg Documented By: FRANCY Fluticasone/Vilanterol (Fluticasone/Vilanterol 100/25mcg 14 Puffs/Inhaler) 1 puffs INH DAILY JOE Stop: 04/22/23 08:59 Last Admin: 03/24/23 08:35 Dose: 1 puffs Documented By: Admin: 03/23/23 10:17 Dose: 1 puffs Documented By: FRANCY Latanoprost (Latanoprost 0.005% Op Soln 2.5 Ml Btl) 1 drops OPB HS JOE Stop: 04/22/23 20:59 Last Admin: 03/23/23 22:54 Dose: 1 drops Documented By: MENDEL Losartan Potassium (Losartan Potassium 50 Mg Tab) 50 mg PO BID JOE Stop: 04/22/23 08:59 Last Admin: 03/24/23 08:36 Dose: 50 mg Documented By: Admin: 03/23/23 22:05 Dose: 50 mg Documented By: Admin: 03/23/23 10:16 Dose: 50 mg Documented By: FRANCY Discontinued Medications Acetaminophen (Acetaminophen 325 Mg Tab) 650 mg PO NOW STA Stop: 03/22/23 22:45 Last Admin: 03/22/23 22:50 Dose: 650 mg Documented By: RIGOBERTO Hydralazine HCl (Hydralazine Hcl 20 Mg/Ml Vial) 5 mg IV NOW ONE Stop: 03/23/23 00:02 Last Admin: 03/23/23 00:36 Dose: 5 mg Documented By: FIDEL Sodium Chloride (Nss) 500 mls @ 999 mls/hr IV .Q31M JOE Stop: 03/22/23 22:30 Last Infusion: 03/22/23 23:56 Dose: 0 mls/hr Documented By: Admin: 03/22/23 22:51 Dose: 999 mls/hr Documented By: RIGOBERTO Ondansetron HCl (Ondansetron Inj 2 Mg/Ml 2 Ml Vial) 4 mg IV NOW STA Stop: 03/22/23 22:45 Last Admin: 03/22/23 22:51 Dose: 4 mg Documented By: RIGOBERTO Description This is a 21 electrode EEG with a single channel dedicated to limited EKG. The electrodes were placed in accordance with the International 10-20 system. Interpretation During restful wakefulness, there is 25 to 40 V, 8 to 9 Hz posterior activity, attenuates with eye opening bilaterally. Background activity shows reasonable organization without focal slowing. There is no sleep-related pattern. Photic stimulations induced posterior driving responses slightly and bilaterally. Hyperventilation is not attempted. There are no electrographic seizures, epileptogenic discharges, or asymmetries. Impression: This EEG, recorded in wakefulness only, is normal. There is no electrographic seizures or epileptogenic discharge. Clinical Correlation Normal routine EEG cannot rule out seizure disorder in certainty. If clinical suspicion is high, a prolonged and sleep deprived EEG recording might offer further information.
--- NOTE | 2023-03-24 13:54 | Discharge Summary ---
Date of Service March 24, 2023 Admission HPI Per Admitting Provider Abbie Rob is an 88-year-old female with history of atrial fibrillation on Eliquis, hypertension, prior CVA presenting with right-sided numbness, tingling and weakness as well as slurred speech and confusion which occurred earlier tonight. Patient was just admitted from 03/21/2023 to 03/22/2023 with similar symptoms. She had a stroke work-up to include CT of the head with global parenchymal volume loss with chronic microvascular ischemic changes and chronic lacunar infarct of the head of the left caudate nucleus. CTA head and CTA neck unremarkable Brain MRI with old punctate lacunar infarct in the left caudate head. Echocardiogram unremarkable Patient was discharged on aspirin 81 mg p.o. daily and atorvastatin 40 mg p.o. daily This evening around 2029 she was using a curling iron on her hair when she de veloped right hand numbness, confusion and slurred speech as well as frontal headache. In the ER she is afebrile, hypertensive, no acute distress. Neurological symptoms have resolved. Patient with no acute complaints at this time. ER course: Tylenol Hydralazine Zofran Normal saline Admission Exam Per Admitting Provider General: patient resting comfortably, NAD, non-toxic in appearance, AA&O x 4 Skin: warm, dry, intact, no rashes or lesions HEENT: NC/AT, PERRL, EOMI, anicteric sclera, conjunctiva without injection, external ear normal to inspection and nontender, nares patent, moist mucus membranes, dentition intact, no oropharyngeal lesions, neck supple, trachea midline, no LAD, no thyromegaly, no JVD Heart: +S1/S2, irregularly irregular, no m/r/g Lungs: equal air entry bilaterally, no rales/rhonchi/wheezes Abd: +BS, soft, NT/ND, no masses/organomegaly/ascites Ext: warm, 2+ pulses in UE/LE bilaterally, no clubbing/cyanosis or edema Neuro: nonfocal, patient AA&O x 4, speech intact, no facial droop, moving all extremities on command with equal strength 5/5 Principal Diagnosis Stroke like symptoms Discharge Exam Constitutional WD/WN, vitals as above + obese and cooperative; no acute distress Eyes + anicteric sclerae ENMT external ear and nose normal, oropharynx normal Neck trachea midline Respiratory normal respiratory effort; no cough Musculoskeletal Head/Neck/Chest: normocephalic and head atraumatic Skin no rashes, warm and dry Neurologic PERRL, EOMI, accommodation nl, no face palsy, no dysarthria CN's II-XI intact bilaterally and moves all extremities; no focal motor deficits and not confused Speech / Cognition: normal speech Motor/Sensory: no tremor and no pronator drift Cranial Nerves: normal accommodation, tongue midline, able to rotate head bilaterally, no nystagmus and symmetric palate elevation Coordination: normal [id number]-[id number] test, normal zbff-ml-axey test and normal rapid alternating movements Psychiatric A+Ox3, euthymic affect Discharge Data Allergies Allergy/AdvReac Type Severity Reaction Status Date / Time phenazopyridine AdvReac Unknown HEADACHE, Verified 03/22/23 22:02 VISUAL PROBLEMS Consultations 03/23/23 00:01 Consult Hospitalist Stat 03/23/23 01:04 ED Decision to Admit Stat 03/23/23 01:33 Consult Neurology Routine Ordered Studies 03/22/23 21:59 CT head/brain wo con Stat Hospital Course (1) Stroke-like symptom: Mrs. Rob is an 88 yo F with a PMHx of CVA, Afib on Eliquis, HTN, prediabetes and migraine with aura who was admitted for evaluation of a constellation fo stroke like symptoms. Of note, patient was admitted to [facility] from 03/21/23 to 03/22/23 for a similar presentation at which time a full stroke work up was done and returned negative (aside from finding evidence of a chronic stroke-- an old punctate lacunar infarct seen within the left caudate head on MRI). Patient presented on 03/23/23 after developing R sided weakness, confusion and slurred speech. - Repeat non contrast head CT done on 03/23/23 showed no changes. Brain MRI was not repeated. She was not given tPA due to concurrent eliquis use. - EEG was done, which showed no evidence of epileptiform activity - Differential consists of TIA (likley given hx of CVA and other CV risk factors), hypertensive emergency given patient's elevated BP in ED, seizure (although EEG was negative) and migraine with sensory aura. - On further discussion, patient reported a mild headache following each of this past weeks events. She says she previously experienced migraines during menopause but none since then. She did report a gradual 'march' or increase in her numbness up her R arm on 03/23/23, which favors a sensory aura (ie with TIA, entire arm typically goes numb at once). Although no one was precisely keeping track, she felt as though her symptoms totally resolved within 1-2 hours -- typically migraine aura lasts ~ 60 minutes. - neuro was consulted, recommend outpatient follow up - I counseled patient -- who was having a hard time believing these events could be migraine (since she had not had an attack in nearly 40 years)-- that migraine is a chronic disease. Even though she has not had one in a while, she remains predisposed to have an attack. Although her headache was only 'mild,' this is typical of migraine in the elderly population, as is acephalgic aura. - I counseled patient and daughter that we will likley never be able to fully elucidate/distinguish between TIA vs. migraine with aura in this case, although I personally favor migraine aura. Therefore it would be frey to 'treat' both by 1. addressing vascular risk factors and 2. start taking magnesium glcyiante 400- 600mg daily, which can prevent migraine aura. (2) Hypertension: Plan: Patient with markedly elevated blood pressure presently 190/110. She was a dministered hydralazine in the ER Continue losartan Consider adding additional blood pressure agent. Patient had been on hydrochlorothiazide which has recently been discontinued due to hyponatremia (3) A-fib: Plan: Rate controlled. Patient anticoagulated on apixaban Continue apixaban 5 mg p.o. twice daily Continue to monitor (4) Hx of CVA - although found to be 'old' on brain MRI -- this was a 'new' diagnosis to the patient and her daughter - she has been started on a daily baby ASA and also lipitor 40mg daily. Total Time Total Time Spent Total Time Spent (In Minutes): 38 Total Time Includes: Examination of the Patient, Discharge Planning and Medication Reconciliation Discharge Plan Discharge Items Patient Disposition: Home - Self-Care Reason For Visit: STROKE-LIKE SYMPTOMS Discharge Diagnosis: TIA vs. migraine with aura Activity: Resume your previous activity Non-emergency contact: Primary Care Provider and Neurologist Call non-emergency contact if: your symptoms worsen Follow-up/Referrals: Morro Arceo MD [Physician] - Zaina Waddell MD [Primary Care Provider] - 04/03/23 11:00 am Diet: Regular Addtl Attending Provider Instructions: You were hospitalized at [facility] for evaluation of stroke like symptoms (ie slurred speech, numbness of your left arm, and confusion). Fortunately, none of your imaging studies showed any evidence that a stroke actually occurred. This could mean that it was a transient ischemic attack, or a "TIA" (commonly referred to ask a mini-stroke). With mini-strokes, there is a lack of blood flow to a certain area of your brain, but it is only temporary and there is no sustained damage to the brain tissue. Your risk factors for TIAs or ministrokes are as follows: 1. you had evidence of a previous stroke in the past. 2. your blood sugar is slightly elevated (although not to the point of having diabetes). You can reduce the risk of future TIAs or strokes by taking a daily baby aspirin (81mg/day), taking your lipitor (40mg daily), taking your losartan (50mg daily) taking your eliquis (5mg twice daily), and by reducing your blood sugar levels (ie consuming fewer dietary carbohydrates). The other plausible explanation for your symptoms is that they are from a migraine with sensory and verbal aura. To reduce the chances this occurs again, please start taking magnesium glycinate 400-600mg daily. This is a supplement that can be purchased over the counter. Your symptoms totally resolved by the time of your discharge. Please follow up with Dr. Zaina Waddell within 1 week of discharge (visit already arranged). Please follow up with neurology -- you can expect a call to schedule this appointment. IF symptoms were to recur, you should return to the [facility] Emergency Department immediately. Pending Studies at Discharge: No Stand-Alone Forms: My [facility] Zounds Hearing Aids, Smoking Cessation Medications and DC Order Prescriptions: Continued budesonide-formoterol [Symbicort] 160-4.5 mcg/actuation HFA aerosol inhaler 2 puff inhalation BID Qty: 10.2 2RF apixaban 5 mg tablet 5 mg PO BID Qty: 180 1RF losartan 50 mg tablet 50 mg PO BID Qty: 180 3RF latanoprost 0.005 % drops 1 drops OPB HS albuterol sulfate 90 mcg/actuation HFA aerosol inhaler 1 inh inhalation QID PRN (Reason: shortness of breath or wheezing) Qty: 8.5 4RF Alphagan P 0.1 % drops 1 drp OPB BID aspirin 81 mg Tablet,Delayed Release (Dr/Ec) 81 mg PO QAM Qty: 30 0RF atorvastatin 40 mg tablet 40 mg PO DAILY Qty: 30 0RF Discharge Orders: Discharge Order (Routine); Ordered 03/24/23 Ordered By: Sultana Ford Admission Data Admit Date/Time: 03/23/23 01:06 Attending Provider: Sultana Ford Admit Provider: Shefali Wade Primary Care Provider: Zaina Waddell Other Providers: Shefali Wade ; Jose Ramon Tai ; Tyesha Godfrey Other Interventions: Discharge Summary Assessment (RN) Last Done: 03/24/23 14:48 Coding Level of Care Code 69634 INP/OBS DISCH >30 MIN Diagnoses Stroke-like symptom R29.90
--- NOTE | 2023-03-27 10:34 | Pharmacy Report ---
Pharmacist Stroke Counseling - Date of Service March 27, 2023 - Scope: Pharmacy has been consulted to provide medication discharge counseling for this patient admitted with transient ischemic attack as per the Pharmacist Discharge Counseling for Stroke Patients Protocol. - Medications on Discharge: Home Medications Medication Instructions Recorded Confirmed latanoprost 0.005 % eye drops 1 drops OPB HS 06/20/19 03/22/23 brimonidine 0.1 % eye drops 1 drp OPB BID 03/21/23 03/22/23 (Alphagan P) New Rx's Medication Instructions Recorded albuterol sulfate 90 mcg/actuation 1 inh inhalation QID PRN shortness 12/06/22 aerosol inhaler of breath or wheezing #8.5 grams budesonide-formoterol HFA 160 2 puff inhalation BID #10.2 grams 01/01/23 mcg-4.5 mcg/actuation aerosol inhaler (Symbicort) apixaban 5 mg tablet 5 mg PO BID #180 tabs 01/02/23 losartan 50 mg tablet 50 mg PO BID #180 tabs 03/09/23 aspirin 81 mg tablet,delayed 81 mg PO QAM #30 tabs 03/22/23 release atorvastatin 40 mg tablet 40 mg PO DAILY #30 tabs 03/22/23 - Action: The above medications, specifically ones for stroke treatment/prophylaxis, have been reviewed in detail with the patient and/or patient solar manufacturer's representative(s) prior to discharge. This includes indication, common adverse reactions, drug interactions, and medication administration. Medication counseling has been employed using the teach-back method to ensure understanding. - Outcome: The patient and/or patient solar manufacturer's representative(s) have demonstrated understanding of the medications. Additional comments: * Discussed medication changes with patient * Patient demonstrated good understanding of current medication regimen, was initially confused regarding change in statin medication, but will picker and packer atorvastatin at pharmacy and begin taking this evening 03/27/23. * Patient has been taking aspirin 81 mg PO daily for a couple of days and tolerating well. Reviewed increased bleeding risk w/ concomitant Eliquis and when to seek medical attention. * Patient reports follow-up appointment with PCP on Thank you for allowing pharmacy to be involved in the care of this patient. Please call [phone] with any additional questions
== END 2023-03-24 16:00 | disposition home or self-care (01) | DRG 69 ==
LOC: ED 21:30 → EDINP 03-23 01:06 → SUATTDRO 03-23 01:06 → INTOOBSV 03-23 01:06 → 2N 03-23 20:09